=== PATIENT | female | born 1930 ===

== ENCOUNTER 2017-10-27 18:11 | Inpatient (IN) | payer MEDICARE ==
[2017-10-27] MEDS ORDERED: Sodium Chloride 0.9% 1,000 ML IV ONE (19:03)
[2017-10-27 19:14] LABS: BASO # 0.1 K/uL (0.0-0.2); BASO % 0.8 % (0.0-2.0); EOS # 0.2 K/uL (0.0-0.7); EOS % 2.7 % (0.0-4.0); HEMOGLOBIN 9.8 g/dL (11.0-16.0); LYMPH # 1.3 K/uL (1.0-4.3); LYMPH % 15.2 % (20.0-40.0); MEAN CELL VOLUME 83.2 fL (81.0-99.0); MEAN CORPUSCULAR HEMOGLOBIN 27.6 pg (27.0-31.0); MEAN CORPUSCULAR HGB CONC 33.2 g/dL (33.0-37.0); MEAN PLATELET VOLUME 8.8 fL (7.2-11.7); MONO # 0.6 K/uL (0.0-0.8); MONO % 7.4 % (0.0-10.0); NEUT # 6.5 K/uL (1.8-7.0); NEUT % 73.9 % (50.0-75.0); RBC 3.56 Mil/uL (3.80-5.20); WHITE BLOOD COUNT 8.8 K/uL (4.8-10.8)
--- NOTE | 2017-10-27 19:19 | C.PDOC ---
"History Of Present Illness 87 year old female brought to the ER by daughter complaining of GI bleed that began tonight. She also complains of abdominal pain. Patient is on Plavix. She denies any nausea, vomiting, fever, chills, or any other complaints. Time Seen by Provider: 10/27/17 18:52 Chief Complaint (Nursing): GI Problem History Per: Patient, Family (Daughter) History/Exam Limitations: no limitations Onset/Duration Of Symptoms: Hrs Current Symptoms Are (Timing): Still Present Past Medical History Reviewed: Historical Data, Nursing Documentation, Vital Signs Vital Signs: Last Vital Signs Temp 97.9 F 10/27/17 23:00 Pulse 79 10/27/17 23:06 Resp 13 10/27/17 23:06 BP 161/55 H 10/27/17 23:06 Pulse Ox 100 10/27/17 23:06 - Medical History PMH: Anxiety, Arthritis, Diabetes, HTN Denies: Chronic Kidney Disease Surgical History: No Surg Hx Family History: States: No Known Family Hx - Social History Hx Tobacco Use: No Hx Alcohol Use: No Hx Substance Use: No Review Of Systems Except As Marked, All Systems Reviewed And Found Negative. Constitutional: Negative for: Fever, Chills Gastrointestinal: Positive for: Abdominal Pain, Hematochezia. Negative for: Nausea, Vomiting Physical Exam - Physical Exam Appears: Non-toxic, Other (Mild distress) Skin: Warm, Dry Head: Atraumatic, Normacephalic Eye(s): bilateral: Conjunctiva Pale Nose: Normal Oral Mucosa: Moist Neck: Supple Chest: Symmetrical Cardiovascular: Rhythm Regular Respiratory: Normal Breath Sounds, No Rales, No Rhonchi, No Wheezing Gastrointestinal/Abdominal: Tenderness (Generalized tenderness, nonspecific ), No Guarding, No Rebound Rectal: Other (Gross bloody bowel movements) Neurological/Psych: Oriented x3, No Other (focal deficits ) ED Course And Treatment - Laboratory Results Result Diagrams: 10/27/17 21:00 10/27/17 19:10 ECG: Interpreted By Me, Viewed By Me ECG Rhythm: Sinus Rhythm ECG Interpretation: No Acute Changes, Abnormal (NSR, QS in III and AVF, abnormal tracings,) O2 Sat by Pulse Oximetry: 97 (RA) Pulse Ox Interpretation: Normal - CT Scan/US CT abd/pelvis Other Rad Studies (CT/US): Read By Radiologist, Radiology Report Reviewed CT/US Interpretation: EXAM: CT Abdomen and Pelvis With Intravenous Contrast. EXAM DATE/TIME: 10/27/2017 8:09 PM. CLINICAL HISTORY: 87 years old, female; Signs and symptoms; Other: Gi bleed. TECHNIQUE: Axial computed tomography images of the abdomen and pelvis with intravenous contrast. All CT scans at this facility use at least one of these dose optimization techniques: automated. exposure control; mA and/or kV adjustment per patient size ( includes targeted exams where dose is. matched to clinical indication); or iterative reconstruction. Coronal and sagittal reformatted images were created and reviewed. COMPARISON: No relevant prior studies available. FINDINGS: There is a tiny calcification within the gallbladder. Evaluation of the gallbladder itself is limited. secondary to patient motion. There is suggestion of possible biliary duct dilation in the left hepatic lobe. Evaluation is limited. secondary to lack of contrast. The spleen and pancreas appear grossly normal on this non-contrast study. There is mild bilateral perinephric stranding. No hydronephrosis. No obstructing calculi. Tiny. subcentimeter exophytic left renal lesion image 55 too small to characterize. Followup is. recommended. Pelvic phleboliths. MARI COLBY | Preliminary Radiology Report. CONFIDENTIALITY STATEMENT. This report is intended only for the use of the referring physician , and only in accordance with law, If you received this in error, call . Page 2 of 2. A few scattered diverticuli are noted. A normal appendix is identified axial images 52 through 56. IMPRESSION: Probable tiny gallstone. Evaluation of the gallbladder is limited secondary to motion. Possible biliary. duct dilation. Recommend correlation with laboratory values. Followup ultrasound may be helpful if. this is the region of patient's symptoms. Thank you for allowing us to participate in the care of your patient. Dictated and Authenticated by: Wendy Everett MD. 10/27/2017 10: 35 PM Eastern Time ([place] & [place]) Medical Decision Making Medical Decision Making: Orders: - EKG - CT Abd/Pel - CXR - Lab work - Prednisone 125mg IVP NG tube put in place, no blood noted Disposition Discussed With Dr.: Linda Contreras Doctor Will See Patient In The: Hospital Counseled Patient/Family Regarding: Diagnosis - Disposition Disposition: HOSPITALIZED Disposition Time: 20:03 Condition: GUARDED - Clinical Impression Clinical Impression: Gastrointestinal hemorrhage - Scribe Statement The provider has reviewed the documentation as recorded by the Scribe Tressa Kidd All medical record entries made by the Ririibe were at my direction and personally dictated by me. I have reviewed the chart and agree that the record accurately reflects my personal performance of the history, physical exam, medical decision making, and the department course for this patient. I have also personally directed, reviewed, and agree with the discharge instructions and disposition."
[2017-10-27 19:26] LABS: ALB/GLOB RATIO 1.4 (1.0-2.1); ALBUMIN 3.7 g/dL (3.5-5.0); CALCIUM 9.3 mg/dl (8.6-10.4)
[2017-10-27 19:40] LABS: PROTHROMBIN TIME 11.4 SECONDS (9.7-12.2)
[2017-10-27] MEDS ORDERED: Iohexol 240 (50 ml) PO ONE (20:11)
[2017-10-27] MEDS ORDERED: Iohexol 240 (50 ml) ONE (20:17)
[2017-10-27] MEDS ORDERED: Moxifloxacin IV 400mg/250ml NS 400 MG/250 ML BAG IVPB ONE ×2 (20:27→22:08)
[2017-10-27] MEDS ORDERED: Labetalol 5mg/ml (4ml) IV ONE (20:27)
[2017-10-27] MEDS ORDERED: Labetalol 5mg/ml (4ml) IVP PRN (20:28)
[2017-10-27] MEDS: Pantoprazole 80 MG in Sodium Chloride 0.9% 100 ML IVP SCH (20:36)
--- NOTE | 2017-10-27 20:36 | CP.PCM.CON ---
History of Present Illness - History of Present Illness History of Present Illness: 87 y/o female with pmx of CAd, CHF, presents to [facility] with bloody bowel movement. Patient had active bloody BM in ER. (+)guiac. (+)tensderness b/ l flank, no radaition, no exacerbating or relieveing factor, no fevers Pmx: CHF, CAD, Psug hx: deneis allergies: PCN SH: deneis smoking Review of Systems - Review of Systems Review of Systems: (+)abdominal pain, (+)venous bloody BM, all other systems netaive Past Patient History - Past Medical History & Family History Past Medical History?: Yes - Past Social History Smoking Status: Never Smoked - CARDIAC Hx Hypertension: Yes - PULMONARY Hx Respiratory Disorders: No - NEUROLOGICAL Hx Neurological Disorder: No - HEENT Hx HEENT Problems: No - RENAL Hx Chronic Kidney Disease: No - ENDOCRINE/METABOLIC Hx Diabetes Mellitus Type 2: Yes - HEMATOLOGICAL/ONCOLOGICAL Hx Blood Disorders: No - INTEGUMENTARY Hx Dermatological Problems: No - MUSCULOSKELETAL/RHEUMATOLOGICAL Hx Arthritis: Yes - GASTROINTESTINAL Hx Gastrointestinal Disorders: No - GENITOURINARY/GYNECOLOGICAL Hx Genitourinary Disorders: No - PSYCHIATRIC Hx Anxiety: Yes Hx Substance Use: No - SURGICAL HISTORY Hx Surgeries: No - ANESTHESIA Hx Anesthesia: Yes Hx Anesthesia Reactions: No Meds Allergies/Adverse Reactions: Allergies Allergy/AdvReac Type Severity Reaction Status Date / Time Penicillins Allergy Verified 10/27/17 19:02 - Medications Medications: Current Medications Hydralazine HCl (Apresoline) 10 mg IVP Q4H PRN PRN Reason: Systolic Blood Pressure Pantoprazole Sodium 80 mg/ (Sodium Chloride) 100 mls @ 10 mls/hr IVP .Q10H CATHERINE PRN Reason: 8 MG/HR Metronidazole (Flagyl) 500 mg in 100 mls @ 100 mls/hr IVPB Q8H CATHERINE PRN Reason: Protocol Moxifloxacin HCl (Avelox Iv 400mg/250ml Ns) 400 mg in 250 mls @ 167 mls/hr IVPB ONCE ONE PRN Reason: Protocol Stop: 10/27/17 21:56 Labetalol HCl (Trandate) 10 mg IVP Q4H PRN PRN Reason: Systolic Blood Pressure Physical Exam - Head Exam Head Exam: ATRAUMATIC, NORMAL INSPECTION, NORMOCEPHALIC - ENT Exam ENT Exam: Mucous Membranes Moist - Respiratory Exam Respiratory Exam: Clear to Auscultation Bilateral, NORMAL BREATHING PATTERN - Cardiovascular Exam Cardiovascular Exam: REGULAR RHYTHM, +S1, +S2, Systolic Murmur - GI/Abdominal Exam GI & Abdominal Exam: Normal Bowel Sounds, Tenderness - Extremities Exam Extremities exam: Positive for: pedal edema - Neurological Exam Neurological exam: Alert, CN II-XII Intact, Oriented x3 Results - Vital Signs Recent Vital Signs: Last Vital Signs Temp 98.9 F 10/27/17 18:17 Pulse 68 10/27/17 18:17 Resp 18 10/27/17 18:17 BP 193/67 H 10/27/17 18:17 Pulse Ox 97 10/27/17 20:24 - Labs Result Diagrams: 10/27/17 21:00 10/27/17 19:10 Labs: Laboratory Results - last 24 hr 10/27/17 10/27/17 10/27/17 19:10 19:10 19:10 WBC 8.8 RBC 3.56 L Hgb 9.8 L D Hct 29.6 L MCV 83.2 D MCH 27.6 MCHC 33.2 RDW 15.0 H Plt Count 253 MPV 8.8 Neut % (Auto) 73.9 Lymph % (Auto) 15.2 L [place] % (Auto) 7.4 Eos % (Auto) 2.7 Baso % (Auto) 0.8 Neut # (Auto) 6.5 Lymph # (Auto) 1.3 [place] # (Auto) 0.6 Eos # (Auto) 0.2 Baso # (Auto) 0.1 PT 11.4 INR 1.0 APTT 33 Sodium 130 L Potassium 4.5 Chloride 96 L Carbon Dioxide 24 Anion Gap 15 BUN 33 H Creatinine 1.5 H Est GFR ( Amer) 40 Est GFR (Non-Af Amer) 33 Random Glucose 299 H Calcium 9.3 Total Bilirubin 0.6 AST 223 H ALT 290 H D Alkaline Phosphatase 559 H Total Protein 6.4 Albumin 3.7 Globulin 2.7 Albumin/Globulin Ratio 1.4 Lipase 186 Blood Type Antibody Screen 10/27/17 19:10 WBC RBC Hgb Hct MCV MCH MCHC RDW Plt Count MPV Neut % (Auto) Lymph % (Auto) [place] % (Auto) Eos % (Auto) Baso % (Auto) Neut # (Auto) Lymph # (Auto) [place] # (Auto) Eos # (Auto) Baso # (Auto) PT INR APTT Sodium Potassium Chloride Carbon Dioxide Anion Gap BUN Creatinine Est GFR ( Amer) Est GFR (Non-Af Amer) Random Glucose Calcium Total Bilirubin AST ALT Alkaline Phosphatase Total Protein Albumin Globulin Albumin/Globulin Ratio Lipase Blood Type A POSITIVE Antibody Screen Negative Assessment & Plan - Assessment and Plan (Free Text) Assessment: Abdominal Pain + bloody bowel movement: suspect Gi bleed, upper /lower, start PPI, possible diverticulosis/itis, hold anicoagulants, hold antihypertensive orally -nPO -no IVF as patient has congestion on CXR -Gi consult -DVT ppx scds -PUD rx protonix -HTN: deja did not take her HTN meds today 2nd above events, will control BP using labetalol + hydralazine, keep SBP <150 -check trop/ck/josh -:susect , obtain echo suspect diatolice heart failure, check bnp -BGM q6hrs, ISS/aspart prognosis guarded as multiple diagnostic testing pending cc time 35 minutes - Date & Time Date: 10/27/17 Time: 20:36
[2017-10-27] MEDS ORDERED: metroNIDAZOLE IV 500 mg/100 ml 500 MG/100 ML BAG ONE (20:56)
[2017-10-27] MEDS: metroNIDAZOLE IV 500 mg/100 ml 500 MG/100 ML BAG IVPB SCH (20:59)
[2017-10-27 21:05] LABS: BASO # 0.1 K/uL (0.0-0.2); BASO % 0.5 % (0.0-2.0); EOS # 0.1 K/uL (0.0-0.7); EOS % 1.1 % (0.0-4.0); HEMOGLOBIN 9.8 g/dL (11.0-16.0); LYMPH # 1.1 K/uL (1.0-4.3); LYMPH % 11.1 % (20.0-40.0); MEAN CELL VOLUME 83.8 fL (81.0-99.0); MEAN CORPUSCULAR HEMOGLOBIN 27.9 pg (27.0-31.0); MEAN CORPUSCULAR HGB CONC 33.2 g/dL (33.0-37.0); MEAN PLATELET VOLUME 8.7 fL (7.2-11.7); MONO # 0.3 K/uL (0.0-0.8); MONO % 3.5 % (0.0-10.0); NEUT % 83.8 % (50.0-75.0); RBC 3.53 Mil/uL (3.80-5.20); RED CELL DISTRIBUTION WIDTH 15.2 % (11.5-14.5); WHITE BLOOD COUNT 9.6 K/uL (4.8-10.8)
[2017-10-27 21:31] LABS: CK-MB 1.73 ng/mL (0.0-3.38)
[2017-10-27 21:33] LABS: TROPONIN I 0.013 ng/mL (0.00-0.120)
[2017-10-28] MEDS: metroNIDAZOLE IV 500 mg/100 ml 500 MG/100 ML BAG IVPB SCH ×3 (03:51→20:53)
[2017-10-28 04:24] LABS: BASO % 0.2 % (0.0-2.0); HEMOGLOBIN 8.9 g/dL (11.0-16.0); LYMPH # 0.6 K/uL (1.0-4.3); LYMPH % 5.8 % (20.0-40.0); MEAN CORPUSCULAR HEMOGLOBIN 27.7 pg (27.0-31.0); MEAN PLATELET VOLUME 9.1 fL (7.2-11.7); MONO % 0.5 % (0.0-10.0); NEUT # 9.2 K/uL (1.8-7.0); NEUT % 93.5 % (50.0-75.0); PLATELET COUNT 221 K/uL (130-400); RBC 3.23 Mil/uL (3.80-5.20); RED CELL DISTRIBUTION WIDTH 14.9 % (11.5-14.5); WHITE BLOOD COUNT 9.8 K/uL (4.8-10.8)
[2017-10-28 04:57] LABS: CK-MB 2.19 ng/mL (0.0-3.38); TROPONIN I 0.018 ng/mL (0.00-0.120)
[2017-10-28] MEDS: Pantoprazole 80 MG in Sodium Chloride 0.9% 100 ML IVP SCH (06:41)
[2017-10-28] MEDS: (Novolog) Insulin Aspart, Recombinant 100 u/ml 10 ml vial SC SCH ×4 (07:02→21:08)
--- NOTE | 2017-10-28 08:02 | CP.PCM.CON ---
<Azael Hays - Last Filed: 10/28/17 11:28> History of Present Illness - History of Present Illness History of Present Illness: PGY-4 GI Fellow Initial Consult Note The following history somewhat limited due to language barrier plus patient hard of hearing. Information obtained from hospital staff, chart review, family and patient. Mrs. Pantoja is a 87 yo Hisp Female with CVA (on clopidogrel), Aortic Stenosis?, DM presenting with bloody bowel movements. Patient presented with multiple bloody bowel movements within the last day starting in the evening of 10/27 prompting her to seek medical attention. Daughter Sandi states that patient had a headache on Saturday for which she took a baby ASA. She denies any abd pain, N/V or history of endoscopies. Later, daughter Sandi stated that patient had CSPY about 10 years ago that was reportedly normal. Furthermore, she states her mother has chronic pain all over which she attributes to clopidogrel. After admission, she was started on PPI gtt, NG placed and made NPO. GI consulted for further evaluation. Unable to obtain full ROS due to hard of hearing (video copy technician [id number] even used and patient could not hear) MHx: See above SurgHx: No EGDs or CSPYs Meds: Clopidogrel, furosemide, glimeprimide, metop succ, novolog, valsartan, rosuvastatin, KCl FamHx: Mother with cancer in "abdomen" SocHx: Denied Tob, EtOH, Ill All: PCN Past Patient History - Past Medical History & Family History Past Medical History?: Yes - Past Social History Smoking Status: Never Smoked - CARDIAC Hx Hypertension: Yes - PULMONARY Hx Respiratory Disorders: No - NEUROLOGICAL Hx Neurological Disorder: No - HEENT Hx HEENT Problems: No - RENAL Hx Chronic Kidney Disease: No - ENDOCRINE/METABOLIC Hx Diabetes Mellitus Type 2: Yes - HEMATOLOGICAL/ONCOLOGICAL Hx Blood Disorders: No - INTEGUMENTARY Hx Dermatological Problems: No - MUSCULOSKELETAL/RHEUMATOLOGICAL Hx Arthritis: Yes - GASTROINTESTINAL Hx Gastrointestinal Disorders: No - GENITOURINARY/GYNECOLOGICAL Hx Genitourinary Disorders: No - PSYCHIATRIC Hx Anxiety: Yes Hx Substance Use: No - SURGICAL HISTORY Hx Surgeries: No - ANESTHESIA Hx Anesthesia: Yes Hx Anesthesia Reactions: No Meds Allergies/Adverse Reactions: Allergies Allergy/AdvReac Type Severity Reaction Status Date / Time Penicillins Allergy Verified 10/27/17 19:02 - Medications Medications: Current Medications Hydralazine HCl (Apresoline) 10 mg IVP Q4H PRN PRN Reason: Systolic Blood Pressure Pantoprazole Sodium 80 mg/ (Sodium Chloride) 100 mls @ 10 mls/hr IVP .Q10H CATHERINE PRN Reason: 8 MG/HR Last Admin: 10/28/17 06:41 Dose: 10 mls/hr Metronidazole (Flagyl) 500 mg in 100 mls @ 100 mls/hr IVPB Q8H CATHERINE PRN Reason: Protocol Last Admin: 10/28/17 03:51 Dose: 100 mls/hr Insulin Aspart (Novolog) 0 unit SC Q6H CATHERINE PRN Reason: Protocol Last Admin: 10/28/17 07:02 Dose: 8 units Labetalol HCl (Trandate) 10 mg IVP Q4H PRN PRN Reason: Systolic Blood Pressure Physical Exam - Constitutional Appears: Non-toxic, Confused, Chronically Ill - Head Exam Head Exam: ATRAUMATIC, NORMAL INSPECTION - Eye Exam Eye Exam: EOMI. absent: Conjunctival injection, Scleral icterus - ENT Exam ENT Exam: Mucous Membranes Moist. absent: Mucous Membranes Dry, Normal External Ear Exam Additional comments: Hard of hearing - Respiratory Exam Respiratory Exam: Clear to Auscultation Bilateral, NORMAL BREATHING PATTERN. absent: Accessory Muscle Use, Chest Wall Tenderness, Prolonged Expiratory Phase - Cardiovascular Exam Cardiovascular Exam: REGULAR RHYTHM, Systolic Murmur (3/6 heard throughout, loudest at apex) - GI/Abdominal Exam GI & Abdominal Exam: Normal Bowel Sounds, Soft. absent: Bruit, Diminished Bowel Sounds, Distended, Firm, Guarding, Hernia, Hyperactive Bowel Sounds, Hypoactive Bowel Sounds, Mass, Organomegaly, Pulsatile Mass, Rebound, Rigid, Tenderness - Rectal Exam Rectal Exam: Bloody Stool, Hemorrhoids (dark red blood on ROXI, Non thrombosed ext hem at 2 o'clock) - Extremities Exam Extremities exam: Positive for: normal inspection, pedal edema (trace) - Neurological Exam Neurological exam: Alert, CN II-XII Intact - Psychiatric Exam Psychiatric exam: Normal Affect, Normal Mood - Skin Skin Exam: Normal Color, Warm Results - Vital Signs Recent Vital Signs: Last Vital Signs Temp 98.2 F 10/28/17 04:00 Pulse 74 10/28/17 05:55 Resp 15 10/28/17 05:55 BP 141/45 L 10/28/17 05:55 Pulse Ox 99 10/28/17 05:55 - Labs Result Diagrams: 10/28/17 04:17 10/27/17 19:10 Labs: Laboratory Results - last 24 hr 10/27/17 10/27/17 10/27/17 19:00 19:10 19:10 WBC 8.8 RBC 3.56 L Hgb 9.8 L D Hct 29.6 L MCV 83.2 D MCH 27.6 MCHC 33.2 RDW 15.0 H Plt Count 253 MPV 8.8 Neut % (Auto) 73.9 Lymph % (Auto) 15.2 L Faulkner % (Auto) 7.4 Eos % (Auto) 2.7 Baso % (Auto) 0.8 Neut # (Auto) 6.5 Lymph # (Auto) 1.3 Faulkner # (Auto) 0.6 Eos # (Auto) 0.2 Baso # (Auto) 0.1 PT 11.4 INR 1.0 APTT 33 Lactate Sodium Potassium Chloride Carbon Dioxide Anion Gap BUN Creatinine Est GFR ( Amer) Est GFR (Non-Af Amer) Random Glucose Lactic Acid Calcium Total Bilirubin AST ALT Alkaline Phosphatase Total Creatine Kinase 87 CK-MB (Mass) 1.73 Troponin I 0.0130 Total Protein Albumin Globulin Albumin/Globulin Ratio Lipase Blood Type Antibody Screen 10/27/17 10/27/17 10/27/17 19:10 19:10 21:00 WBC 9.6 RBC 3.53 L Hgb 9.8 L Hct 29.5 L MCV 83.8 MCH 27.9 MCHC 33.2 RDW 15.2 H Plt Count 239 MPV 8.7 Neut % (Auto) 83.8 H Lymph % (Auto) 11.1 L Faulkner % (Auto) 3.5 Eos % (Auto) 1.1 Baso % (Auto) 0.5 Neut # (Auto) 8.0 H Lymph # (Auto) 1.1 Faulkner # (Auto) 0.3 Eos # (Auto) 0.1 Baso # (Auto) 0.1 PT INR APTT Lactate Sodium 130 L Potassium 4.5 Chloride 96 L Carbon Dioxide 24 Anion Gap 15 BUN 33 H Creatinine 1.5 H Est GFR ( Amer) 40 Est GFR (Non-Af Amer) 33 Random Glucose 299 H Lactic Acid Calcium 9.3 Total Bilirubin 0.6 AST 223 H ALT 290 H D Alkaline Phosphatase 559 H Total Creatine Kinase CK-MB (Mass) Troponin I Total Protein 6.4 Albumin 3.7 Globulin 2.7 Albumin/Globulin Ratio 1.4 Lipase 186 Blood Type A POSITIVE Antibody Screen Negative 10/27/17 10/27/17 10/28/17 21:00 21:05 04:17 WBC 9.8 RBC 3.23 L Hgb 8.9 L Hct 27.1 L MCV 84.0 MCH 27.7 MCHC 33.0 RDW 14.9 H Plt Count 221 MPV 9.1 Neut % (Auto) 93.5 H Lymph % (Auto) 5.8 L Faulkner % (Auto) 0.5 Eos % (Auto) 0.0 Baso % (Auto) 0.2 Neut # (Auto) 9.2 H Lymph # (Auto) 0.6 L Faulkner # (Auto) 0.0 Eos # (Auto) 0.0 Baso # (Auto) 0.0 PT INR APTT Lactate 2.0 Sodium Potassium Chloride Carbon Dioxide Anion Gap BUN Creatinine Est GFR ( Amer) Est GFR (Non-Af Amer) Random Glucose Lactic Acid 1.6 Calcium Total Bilirubin AST ALT Alkaline Phosphatase Total Creatine Kinase CK-MB (Mass) Troponin I Total Protein Albumin Globulin Albumin/Globulin Ratio Lipase Blood Type Antibody Screen 10/28/17 10/28/17 04:17 04:18 WBC RBC Hgb Hct MCV MCH MCHC RDW Plt Count MPV Neut % (Auto) Lymph % (Auto) Faulkner % (Auto) Eos % (Auto) Baso % (Auto) Neut # (Auto) Lymph # (Auto) Faulkner # (Auto) Eos # (Auto) Baso # (Auto) PT INR APTT Lactate Sodium Potassium Chloride Carbon Dioxide Anion Gap BUN Creatinine Est GFR ( Amer) Est GFR (Non-Af Amer) Random Glucose Lactic Acid 1.9 Calcium Total Bilirubin AST ALT Alkaline Phosphatase Total Creatine Kinase 74 CK-MB (Mass) 2.19 Troponin I 0.0180 Total Protein Albumin Globulin Albumin/Globulin Ratio Lipase Blood Type Antibody Screen Assessment & Plan - Assessment and Plan (Free Text) Assessment: 87 yo Hisp Female with CVA, DM presenting with bright red blood per rectum. # Hematochezia: Suspect related to Lower GI Bleed, perhaps diverticular or AVM related given h/o , especially since painless. Though BUN mildly elevated there are no other signs/symptoms to suggest brisk upper bleed. Hgb 8.9 from 12 in 2013. Had NG placed but there was reportedly no output from it. Reportedly had CSPY about 10 years ago that was normal per family report. # Transamnitis: Unclear etiology. AST 223, ALT 290 and AP 559, Bili 0.6. Possible stone in duct in L lobe of liver per prelim read. No abd pain at this time. # H/o ?CHF, CAD, : No previous reports on file. Repeat Echo pending. Family deny h/o CAD and CHF Plan: - Cont to hold clopidogrel (last dose on Saturday, baby ASA Sat night) - Monitor Hgb, transfuse if <7 - If continues to bleed over next fw days/Hgb drop will consider Colonoscopy, but given hemodynamically stale will let clopidogrel wash out for now and monitor closely for self-resolution. - Clear liquid diet for now - DCed PPI - RUQ US - Check for Viral Hep - Daily CMPs Pt seen and examined with Dr. Martinez <Macho Martinez - Last Filed: 10/28/17 15:18> Meds - Medications Medications: Current Medications Hydralazine HCl (Apresoline) 10 mg IVP Q4H PRN PRN Reason: Systolic Blood Pressure Metronidazole (Flagyl) 500 mg in 100 mls @ 100 mls/hr IVPB Q8H CATHERINE PRN Reason: Protocol Last Admin: 10/28/17 12:37 Dose: 100 mls/hr Sodium Chloride (Sodium Chloride 0.45%) 1,000 mls @ 45 mls/hr IV .[id number] [facility] Last Admin: 10/28/17 10:41 Dose: 45 mls/hr Insulin Aspart (Novolog) 0 unit SC Q6H CATHERINE PRN Reason: Protocol Last Admin: 10/28/17 12:41 Dose: 10 units Results - Vital Signs Recent Vital Signs: Last Vital Signs Temp 98.1 F 10/28/17 08:00 Pulse 79 10/28/17 08:00 Resp 20 10/28/17 08:00 BP 115/54 L 10/28/17 07:55 Pulse Ox 100 10/28/17 08:00 - Labs Result Diagrams: 10/28/17 11:24 10/28/17 11:24 Labs: Laboratory Results - last 24 hr 10/27/17 10/27/17 10/27/17 19:00 19:10 19:10 WBC 8.8 RBC 3.56 L Hgb 9.8 L D Hct 29.6 L MCV 83.2 D MCH 27.6 MCHC 33.2 RDW 15.0 H Plt Count 253 MPV 8.8 Neut % (Auto) 73.9 Lymph % (Auto) 15.2 L Faulkner % (Auto) 7.4 Eos % (Auto) 2.7 Baso % (Auto) 0.8 Neut # (Auto) 6.5 Lymph # (Auto) 1.3 Faulkner # (Auto) 0.6 Eos # (Auto) 0.2 Baso # (Auto) 0.1 Neutrophils % (Manual) Lymphocytes % (Manual) Monocytes % (Manual) Platelet Estimate Hypochromasia (manual) Poikilocytosis (manual Anisocytosis (manual) Target Cells Tear Drop Cells Ovalocytes PT 11.4 INR 1.0 APTT 33 Lactate Sodium Potassium Chloride Carbon Dioxide Anion Gap BUN Creatinine Est GFR ( Amer) Est GFR (Non-Af Amer) POC Glucose (mg/dL) Random Glucose Lactic Acid Calcium Phosphorus Magnesium Total Bilirubin AST ALT Alkaline Phosphatase Total Creatine Kinase 87 CK-MB (Mass) 1.73 Troponin I 0.0130 Total Protein Albumin Globulin Albumin/Globulin Ratio Lipase Blood Type Antibody Screen 10/27/17 10/27/17 10/27/17 19:10 19:10 21:00 WBC 9.6 RBC 3.53 L Hgb 9.8 L Hct 29.5 L MCV 83.8 MCH 27.9 MCHC 33.2 RDW 15.2 H Plt Count 239 MPV 8.7 Neut % (Auto) 83.8 H Lymph % (Auto) 11.1 L Faulkner % (Auto) 3.5 Eos % (Auto) 1.1 Baso % (Auto) 0.5 Neut # (Auto) 8.0 H Lymph # (Auto) 1.1 Faulkner # (Auto) 0.3 Eos # (Auto) 0.1 Baso # (Auto) 0.1 Neutrophils % (Manual) Lymphocytes % (Manual) Monocytes % (Manual) Platelet Estimate Hypochromasia (manual) Poikilocytosis (manual Anisocytosis (manual) Target Cells Tear Drop Cells Ovalocytes PT INR APTT Lactate Sodium 130 L Potassium 4.5 Chloride 96 L Carbon Dioxide 24 Anion Gap 15 BUN 33 H Creatinine 1.5 H Est GFR ( Amer) 40 Est GFR (Non-Af Amer) 33 POC Glucose (mg/dL) Random Glucose 299 H Lactic Acid Calcium 9.3 Phosphorus Magnesium Total Bilirubin 0.6 AST 223 H ALT 290 H D Alkaline Phosphatase 559 H Total Creatine Kinase CK-MB (Mass) Troponin I Total Protein 6.4 Albumin 3.7 Globulin 2.7 Albumin/Globulin Ratio 1.4 Lipase 186 Blood Type A POSITIVE Antibody Screen Negative 10/27/17 10/27/17 10/27/17 21:00 21:05 23:01 WBC RBC Hgb Hct MCV MCH MCHC RDW Plt Count MPV Neut % (Auto) Lymph % (Auto) Faulkner % (Auto) Eos % (Auto) Baso % (Auto) Neut # (Auto) Lymph # (Auto) Faulkner # (Auto) Eos # (Auto) Baso # (Auto) Neutrophils % (Manual) Lymphocytes % (Manual) Monocytes % (Manual) Platelet Estimate Hypochromasia (manual) Poikilocytosis (manual Anisocytosis (manual) Target Cells Tear Drop Cells Ovalocytes PT INR APTT Lactate 2.0 Sodium Potassium Chloride Carbon Dioxide Anion Gap BUN Creatinine Est GFR ( Amer) Est GFR (Non-Af Amer) POC Glucose (mg/dL) 286 H Random Glucose Lactic Acid 1.6 Calcium Phosphorus Magnesium Total Bilirubin AST ALT Alkaline Phosphatase Total Creatine Kinase CK-MB (Mass) Troponin I Total Protein Albumin Globulin Albumin/Globulin Ratio Lipase Blood Type Antibody Screen 10/28/17 10/28/17 10/28/17 04:17 04:17 04:18 WBC 9.8 RBC 3.23 L Hgb 8.9 L Hct 27.1 L MCV 84.0 MCH 27.7 MCHC 33.0 RDW 14.9 H Plt Count 221 MPV 9.1 Neut % (Auto) 93.5 H Lymph % (Auto) 5.8 L Faulkner % (Auto) 0.5 Eos % (Auto) 0.0 Baso % (Auto) 0.2 Neut # (Auto) 9.2 H Lymph # (Auto) 0.6 L Faulkner # (Auto) 0.0 Eos # (Auto) 0.0 Baso # (Auto) 0.0 Neutrophils % (Manual) 96 H Lymphocytes % (Manual) 4 L Monocytes % (Manual) TEST NOT PERFORMED Platelet Estimate Normal Hypochromasia (manual) Slight Poikilocytosis (manual Slight Anisocytosis (manual) Slight Target Cells Slight Tear Drop Cells Ovalocytes PT INR APTT Lactate Sodium Potassium Chloride Carbon Dioxide Anion Gap BUN Creatinine Est GFR ( Amer) Est GFR (Non-Af Amer) POC Glucose (mg/dL) Random Glucose Lactic Acid 1.9 Calcium Phosphorus Magnesium Total Bilirubin AST ALT Alkaline Phosphatase Total Creatine Kinase 74 CK-MB (Mass) 2.19 Troponin I 0.0180 Total Protein Albumin Globulin Albumin/Globulin Ratio Lipase Blood Type Antibody Screen 10/28/17 10/28/17 10/28/17 05:46 11:24 11:24 WBC 9.7 RBC 3.18 L Hgb 9.0 L Hct 26.8 L MCV 84.3 MCH 28.3 MCHC 33.6 RDW 15.4 H Plt Count 225 MPV 8.8 Neut % (Auto) 92.1 H Lymph % (Auto) 6.8 L Faulkner % (Auto) 0.9 Eos % (Auto) 0.0 Baso % (Auto) 0.2 Neut # (Auto) 8.9 H Lymph # (Auto) 0.7 L Faulkner # (Auto) 0.1 Eos # (Auto) 0.0 Baso # (Auto) 0.0 Neutrophils % (Manual) 91 H Lymphocytes % (Manual) 8 L Monocytes % (Manual) 1 Platelet Estimate Normal Hypochromasia (manual) Slight Poikilocytosis (manual Slight Anisocytosis (manual) Slight Target Cells Slight Tear Drop Cells Slight Ovalocytes Slight PT INR APTT Lactate Sodium 130 L Potassium 4.3 Chloride 98 Carbon Dioxide 18 L Anion Gap 18 BUN 31 H Creatinine 1.3 H Est GFR ( Amer) 47 Est GFR (Non-Af Amer) 39 POC Glucose (mg/dL) 359 H Random Glucose 388 H Lactic Acid Calcium 8.8 Phosphorus 4.5 Magnesium 1.8 Total Bilirubin 0.6 AST 123 H D ALT 225 H D Alkaline Phosphatase 494 H Total Creatine Kinase 77 CK-MB (Mass) 3.17 Troponin I 0.0240 Total Protein 6.0 L Albumin 3.4 L Globulin 2.6 Albumin/Globulin Ratio 1.3 Lipase Blood Type Antibody Screen 10/28/17 12:38 WBC RBC Hgb Hct MCV MCH MCHC RDW Plt Count MPV Neut % (Auto) Lymph % (Auto) Faulkner % (Auto) Eos % (Auto) Baso % (Auto) Neut # (Auto) Lymph # (Auto) Faulkner # (Auto) Eos # (Auto) Baso # (Auto) Neutrophils % (Manual) Lymphocytes % (Manual) Monocytes % (Manual) Platelet Estimate Hypochromasia (manual) Poikilocytosis (manual Anisocytosis (manual) Target Cells Tear Drop Cells Ovalocytes PT INR APTT Lactate Sodium Potassium Chloride Carbon Dioxide Anion Gap BUN Creatinine Est GFR ( Amer) Est GFR (Non-Af Amer) POC Glucose (mg/dL) 468 H* Random Glucose Lactic Acid Calcium Phosphorus Magnesium Total Bilirubin AST ALT Alkaline Phosphatase Total Creatine Kinase CK-MB (Mass) Troponin I Total Protein Albumin Globulin Albumin/Globulin Ratio Lipase Blood Type Antibody Screen Attending/Attestation - Attestation I have personally seen and examined this patient.: Yes I have fully participated in the care of the patient.: Yes I have reviewed all pertinent clinical information: Yes Notes (Text): 10/28/17 15:13 I have seen and examined patient with GI fellow. Agree with above documentation with the following additions. In brief, this is an 87 year old female with history of obesity (BMI 34), CVA on plavix, DM, who presents with complaint of rectal bleeding which began yesterday. Prior to this she was in usual state of health. She describes having a large bloody bowel movement yesterday, again at 4 am today and once this morning. She denies associated abdominal pain, nausea, vomiting, fever/chills, weight loss, or change in bowel habits. She had a colonoscopy over 10 years ago which was normal as per patient 's daughter. Review of vitals from today are normal. 12 point review of systems performed, negative aside from mentioned above. Obesity CVA on plavix (last dose yesterday morning) DM Rectal bleeding, no associated alarm features, differential is broad including diverticulosis, hemorrhoids, malignancy, etc Transaminitis - Clear liquid diet as tolerated - H/H stable, continue to monitor and transfuse as necessary - Obtain viral hepatitis panel - Obtain abdominal US - Continue to monitor LFTs - Plavix currently held, will continue with supportive care and observation. Patient may benefit from endoscopic evaluation if bleeding persists or can be performed electively as outpatient if symptoms resolve. Will continue to monitor patient clinical course.
[2017-10-28 08:24] LABS: ANISOCYTOSIS SLIGHT; HYPOCHROMIC SLIGHT; LYMPHOCYTE 4 % (20-40); NEUTROPHIL 96 % (50-75); PLATELET ESTIMATE NORMAL (NORMAL); POIKILOCYTOSIS SLIGHT; TARGET CELLS SLIGHT; TOTAL CELLS COUNTED 100
--- NOTE | 2017-10-28 10:21 | CT ---
Date of service: 10/27/2017 PROCEDURE: CT Abdomen and Pelvis with Oral contrast. HISTORY: gi bleed COMPARISON: Comparison is made to the previous study dated 01/07/2012 TECHNIQUE: Contiguous axial images of the abdomen and pelvis. Oral contrast was administered. No IV contrast given. Coronal and Sagittal reformats generated. Radiation dose: Total exam DLP = 1040.15 mGy-cm. This CT exam was performed using one or more of the following dose reduction techniques: Automated exposure control, adjustment of the mA and/or kV according to patient size, and/or use of iterative reconstruction technique. FINDINGS: LOWER THORAX: Unremarkable. LIVER: Mildly heterogeneous attenuation of the liver noted without evidence of discrete mass lesion. No evidence of intrahepatic or extrahepatic biliary ductal dilatation. GALLBLADDER AND BILE DUCTS: Possible gallstones without evidence of acute cholecystitis. PANCREAS: No evidence of acute pancreatitis. The main pancreatic duct is not dilated. SPLEEN: Unremarkable. No splenomegaly. ADRENALS: Unremarkable. KIDNEYS AND URETERS: Unremarkable. No stone or hydronephrosis. BLADDER: Grossly unremarkable. REPRODUCTIVE: Unremarkable. APPENDIX: No evidence of appendicitis. BOWEL: Questionable transverse colon wall thickening versus incomplete distention. No evidence of bowel obstruction. No evidence of obstructive mass lesion in the small or large bowel loops noted in this exam. PERITONEUM: Unremarkable. No fluid collection. No free air. LYMPH NODES: Unremarkable. No enlarged lymph nodes. VASCULATURE: Unremarkable. No aortic aneurysm. BONES: Severe compression deformity of T12 vertebral body is again noted. Diffuse osteopenia. OTHER FINDINGS: None. IMPRESSION: Possible gallstones. No definite CT evidence of acute cholecystitis or biliary tract obstruction. Preliminary report was submitted by virtual Radiology.
[2017-10-28] MEDS: Sodium Chloride 0.45% 1,000 ML IV SCH (10:41)
--- NOTE | 2017-10-28 11:23 | RAD ---
Date of service: 10/27/2017 PROCEDURE: CHEST RADIOGRAPH, 1 VIEW HISTORY: GI Bleeding COMPARISON: 07/08/2017. FINDINGS: LUNGS: Clear. PLEURA: No pneumothorax or pleural fluid seen. CARDIOVASCULAR: No radiographic findings to suggest acute or significant cardiovascular disease. OSSEOUS STRUCTURES: No significant abnormalities. VISUALIZED UPPER ABDOMEN: Normal. OTHER FINDINGS: None. IMPRESSION: No active disease.No significant interval change compared to the prior examination(s).
[2017-10-28 11:31] LABS: BASO % 0.2 % (0.0-2.0); LYMPH # 0.7 K/uL (1.0-4.3); LYMPH % 6.8 % (20.0-40.0); MEAN CELL VOLUME 84.3 fL (81.0-99.0); MEAN CORPUSCULAR HEMOGLOBIN 28.3 pg (27.0-31.0); MEAN CORPUSCULAR HGB CONC 33.6 g/dL (33.0-37.0); MEAN PLATELET VOLUME 8.8 fL (7.2-11.7); MONO # 0.1 K/uL (0.0-0.8); MONO % 0.9 % (0.0-10.0); NEUT # 8.9 K/uL (1.8-7.0); NEUT % 92.1 % (50.0-75.0); PLATELET COUNT 225 K/uL (130-400); RBC 3.18 Mil/uL (3.80-5.20); RED CELL DISTRIBUTION WIDTH 15.4 % (11.5-14.5); WHITE BLOOD COUNT 9.7 K/uL (4.8-10.8)
[2017-10-28 12:03] LABS: ANISOCYTOSIS SLIGHT; HYPOCHROMIC SLIGHT; LYMPHOCYTE 8 % (20-40); MONOCYTE 1 % (0-10); NEUTROPHIL 91 % (50-75); OVALOCYTES SLIGHT; PLATELET ESTIMATE NORMAL (NORMAL); POIKILOCYTOSIS SLIGHT; TARGET CELLS SLIGHT; TEARDROP CELLS SLIGHT; TOTAL CELLS COUNTED 100
[2017-10-28 12:17] LABS: CK-MB 3.17 ng/mL (0.0-3.38); TROPONIN I 0.024 ng/mL (0.00-0.120)
[2017-10-28 12:20] LABS: ALB/GLOB RATIO 1.3 (1.0-2.1); ALBUMIN 3.4 g/dL (3.5-5.0); CALCIUM 8.8 mg/dl (8.6-10.4)
--- NOTE | 2017-10-28 15:03 | CP.CCUPN ---
CCU Subjective - Physician Review Subjective (Free Text): PGY-1 critical care progress note. Patient seen and examined at bedside. Patient had a grossly bloody BM this morning, and this afternoon passed a small amount of dark red blood. Will continue to hold Plavix. Patient tolerated liquid diet today. Patient denies chest pain, Shortness of breath, palpitations, abdominal pain, nausea, vomiting. CCU Objective - Vital Signs / Intake & Output Intake and Output (Last 8hrs): Intake & Output 10/28/17 10/28/17 10/28/17 06:59 14:59 22:59 Intake Total 260 20 Output Total 500 Balance -240 20 Weight 193 lb Intake: Intake, IV Amount 260 20 Left Forearm 60 20 Right Wrist 200 Oral 0 Output: Urine 500 Urine, Voided 500 Other: Voiding Method Bedpan # Voids Urine, Voided 1 # Bowel Movements 1 - Physical Exam Head: Positive for: Atraumatic, Normocephalic Extroacular Muscles: Positive for: EOMI Conjunctiva: Positive for: Other (pale) Ears: Positive for: Other (hard of hearing) Mouth: Positive for: Moist Mucous Membranes Respiratory/Chest: Positive for: Clear to Auscultation. Negative for: Wheezes, Rales, Rhonchi Cardiovascular: Positive for: Regular Rate and Rhythm, Murmurs (systolic ejection murmur), Normal S1, S2 Abdomen: Positive for: Normal Bowel Sounds. Negative for: Tenderness Lower Extremity: Positive for: Tenderness (to diffuse palpation of bilateral lower extremities), Swelling (mild, non bitting bilaterally) Neurological: Positive for: CN II-XII Intact, Speech Normal Skin: Positive for: Warm, Dry, Pale Psychiatric: Positive for: Alert - Medications Active Medications: Active Medications Generic Name Dose Route Start Last Admin Trade Name Freq PRN Reason Stop Dose Admin Hydralazine HCl 10 mg 10/27/17 20:29 Apresoline IVP Q4H PRN Systolic Blood Pressure Metronidazole 500 mg in 100 mls @ 100 mls/hr 10/27/17 20:30 10/28/17 12:37 Flagyl IVPB 100 mls/hr Q8H CATHERINE Administration Protocol Sodium Chloride 1,000 mls @ 45 mls/hr 10/28/17 10:00 10/28/17 10:41 Sodium Chloride 0.45% IV 45 mls/hr .[id number] CATHERINE Administration Insulin Aspart 0 unit 10/28/17 07:00 10/28/17 12:41 Novolog SC 10 units Q6H CATHERINE Administration Protocol - Patient Studies Lab Studies: Lab Studies 10/28/17 10/28/17 10/28/17 Range/Units 12:38 11:24 11:24 WBC 9.7 (4.8-10.8) K/uL RBC 3.18 L (3.80-5.20) Mil/uL Hgb 9.0 L (11.0-16.0) g/dL Hct 26.8 L (34.0-47.0) % MCV 84.3 (81.0-99.0) fL MCH 28.3 (27.0-31.0) pg MCHC 33.6 (33.0-37.0) g/dL RDW 15.4 H (11.5-14.5) % Plt Count 225 (130-400) K/uL MPV 8.8 (7.2-11.7) fL Neut % (Auto) 92.1 H (50.0-75.0) % Lymph % (Auto) 6.8 L (20.0-40.0) % Bent % (Auto) 0.9 (0.0-10.0) % Eos % (Auto) 0.0 (0.0-4.0) % Baso % (Auto) 0.2 (0.0-2.0) % Neut # (Auto) 8.9 H (1.8-7.0) K/uL Lymph # (Auto) 0.7 L (1.0-4.3) K/uL Bent # (Auto) 0.1 (0.0-0.8) K/uL Eos # (Auto) 0.0 (0.0-0.7) K/uL Baso # (Auto) 0.0 (0.0-0.2) K/uL Neutrophils % (Manual) 91 H (50-75) % Lymphocytes % (Manual) 8 L (20-40) % Monocytes % (Manual) 1 Platelet Estimate Normal (NORMAL) Hypochromasia (manual) Slight Poikilocytosis (manual Slight Anisocytosis (manual) Slight Target Cells Slight Tear Drop Cells Slight Ovalocytes Slight PT (9.7-12.2) SECONDS INR APTT (21-34) SECONDS Lactate (0.7-2.1) mmol/L Sodium 130 L (132-148) mmol/L Potassium 4.3 (3.6-5.2) mmol/L Chloride 98 (98-107) mmol/L Carbon Dioxide 18 L (22-30) mmol/L Anion Gap 18 (10-20) BUN 31 H (7-17) mg/dL Creatinine 1.3 H (0.7-1.2) mg/dL Est GFR ( Amer) 47 Est GFR (Non-Af Amer) 39 POC Glucose (mg/dL) 468 H* (65-110) mg/dL Random Glucose 388 H (65-105) mg/dL Lactic Acid (0.7-2.1) mmol/L Calcium 8.8 (8.6-10.4) mg/dl Phosphorus 4.5 (2.5-4.5) mg/dL Magnesium 1.8 (1.6-2.3) mg/dL Total Bilirubin 0.6 (0.2-1.3) mg/dL AST 123 H D (14-36) U/L ALT 225 H D (9-52) U/L Alkaline Phosphatase 494 H (38-126) U/L Total Creatine Kinase 77 (30-135) U/L CK-MB (Mass) 3.17 (0.0-3.38) ng/mL Troponin I 0.0240 (0.00-0.120) ng/mL Total Protein 6.0 L (6.3-8.3) g/dL Albumin 3.4 L (3.5-5.0) g/dL Globulin 2.6 (2.2-3.9) gm/dL Albumin/Globulin Ratio 1.3 (1.0-2.1) Lipase (23-300) U/L Blood Type Antibody Screen 10/28/17 10/28/17 10/28/17 Range/Units 05:46 04:18 04:17 WBC (4.8-10.8) K/uL RBC (3.80-5.20) Mil/uL Hgb (11.0-16.0) g/dL Hct (34.0-47.0) % MCV (81.0-99.0) fL MCH (27.0-31.0) pg MCHC (33.0-37.0) g/dL RDW (11.5-14.5) % Plt Count (130-400) K/uL MPV (7.2-11.7) fL Neut % (Auto) (50.0-75.0) % Lymph % (Auto) (20.0-40.0) % Bent % (Auto) (0.0-10.0) % Eos % (Auto) (0.0-4.0) % Baso % (Auto) (0.0-2.0) % Neut # (Auto) (1.8-7.0) K/uL Lymph # (Auto) (1.0-4.3) K/uL Bent # (Auto) (0.0-0.8) K/uL Eos # (Auto) (0.0-0.7) K/uL Baso # (Auto) (0.0-0.2) K/uL Neutrophils % (Manual) (50-75) % Lymphocytes % (Manual) (20-40) % Monocytes % (Manual) Platelet Estimate (NORMAL) Hypochromasia (manual) Poikilocytosis (manual Anisocytosis (manual) Target Cells Tear Drop Cells Ovalocytes PT (9.7-12.2) SECONDS INR APTT (21-34) SECONDS Lactate (0.7-2.1) mmol/L Sodium (132-148) mmol/L Potassium (3.6-5.2) mmol/L Chloride (98-107) mmol/L Carbon Dioxide (22-30) mmol/L Anion Gap (10-20) BUN (7-17) mg/dL Creatinine (0.7-1.2) mg/dL Est GFR ( Amer) Est GFR (Non-Af Amer) POC Glucose (mg/dL) 359 H (65-110) mg/dL Random Glucose (65-105) mg/dL Lactic Acid 1.9 (0.7-2.1) mmol/L Calcium (8.6-10.4) mg/dl Phosphorus (2.5-4.5) mg/dL Magnesium (1.6-2.3) mg/dL Total Bilirubin (0.2-1.3) mg/dL AST (14-36) U/L ALT (9-52) U/L Alkaline Phosphatase (38-126) U/L Total Creatine Kinase 74 (30-135) U/L CK-MB (Mass) 2.19 (0.0-3.38) ng/mL Troponin I 0.0180 (0.00-0.120) ng/mL Total Protein (6.3-8.3) g/dL Albumin (3.5-5.0) g/dL Globulin (2.2-3.9) gm/dL Albumin/Globulin Ratio (1.0-2.1) Lipase (23-300) U/L Blood Type Antibody Screen 10/28/17 10/27/17 10/27/17 Range/Units 04:17 23:01 21:05 WBC 9.8 (4.8-10.8) K/uL RBC 3.23 L (3.80-5.20) Mil/uL Hgb 8.9 L (11.0-16.0) g/dL Hct 27.1 L (34.0-47.0) % MCV 84.0 (81.0-99.0) fL MCH 27.7 (27.0-31.0) pg MCHC 33.0 (33.0-37.0) g/dL RDW 14.9 H (11.5-14.5) % Plt Count 221 (130-400) K/uL MPV 9.1 (7.2-11.7) fL Neut % (Auto) 93.5 H (50.0-75.0) % Lymph % (Auto) 5.8 L (20.0-40.0) % Bent % (Auto) 0.5 (0.0-10.0) % Eos % (Auto) 0.0 (0.0-4.0) % Baso % (Auto) 0.2 (0.0-2.0) % Neut # (Auto) 9.2 H (1.8-7.0) K/uL Lymph # (Auto) 0.6 L (1.0-4.3) K/uL Bent # (Auto) 0.0 (0.0-0.8) K/uL Eos # (Auto) 0.0 (0.0-0.7) K/uL Baso # (Auto) 0.0 (0.0-0.2) K/uL Neutrophils % (Manual) 96 H (50-75) % Lymphocytes % (Manual) 4 L (20-40) % Monocytes % (Manual) TEST NOT PERFORMED Platelet Estimate Normal (NORMAL) Hypochromasia (manual) Slight Poikilocytosis (manual Slight Anisocytosis (manual) Slight Target Cells Slight Tear Drop Cells Ovalocytes PT (9.7-12.2) SECONDS INR APTT (21-34) SECONDS Lactate 2.0 (0.7-2.1) mmol/L Sodium (132-148) mmol/L Potassium (3.6-5.2) mmol/L Chloride (98-107) mmol/L Carbon Dioxide (22-30) mmol/L Anion Gap (10-20) BUN (7-17) mg/dL Creatinine (0.7-1.2) mg/dL Est GFR ( Amer) Est GFR (Non-Af Amer) POC Glucose (mg/dL) 286 H (65-110) mg/dL Random Glucose (65-105) mg/dL Lactic Acid (0.7-2.1) mmol/L Calcium (8.6-10.4) mg/dl Phosphorus (2.5-4.5) mg/dL Magnesium (1.6-2.3) mg/dL Total Bilirubin (0.2-1.3) mg/dL AST (14-36) U/L ALT (9-52) U/L Alkaline Phosphatase (38-126) U/L Total Creatine Kinase (30-135) U/L CK-MB (Mass) (0.0-3.38) ng/mL Troponin I (0.00-0.120) ng/mL Total Protein (6.3-8.3) g/dL Albumin (3.5-5.0) g/dL Globulin (2.2-3.9) gm/dL Albumin/Globulin Ratio (1.0-2.1) Lipase (23-300) U/L Blood Type Antibody Screen 10/27/17 10/27/17 10/27/17 Range/Units 21:00 21:00 19:10 WBC 9.6 (4.8-10.8) K/uL RBC 3.53 L (3.80-5.20) Mil/uL Hgb 9.8 L (11.0-16.0) g/dL Hct 29.5 L (34.0-47.0) % MCV 83.8 (81.0-99.0) fL MCH 27.9 (27.0-31.0) pg MCHC 33.2 (33.0-37.0) g/dL RDW 15.2 H (11.5-14.5) % Plt Count 239 (130-400) K/uL MPV 8.7 (7.2-11.7) fL Neut % (Auto) 83.8 H (50.0-75.0) % Lymph % (Auto) 11.1 L (20.0-40.0) % Bent % (Auto) 3.5 (0.0-10.0) % Eos % (Auto) 1.1 (0.0-4.0) % Baso % (Auto) 0.5 (0.0-2.0) % Neut # (Auto) 8.0 H (1.8-7.0) K/uL Lymph # (Auto) 1.1 (1.0-4.3) K/uL Bent # (Auto) 0.3 (0.0-0.8) K/uL Eos # (Auto) 0.1 (0.0-0.7) K/uL Baso # (Auto) 0.1 (0.0-0.2) K/uL Neutrophils % (Manual) (50-75) % Lymphocytes % (Manual) (20-40) % Monocytes % (Manual) Platelet Estimate (NORMAL) Hypochromasia (manual) Poikilocytosis (manual Anisocytosis (manual) Target Cells Tear Drop Cells Ovalocytes PT (9.7-12.2) SECONDS INR APTT (21-34) SECONDS Lactate (0.7-2.1) mmol/L Sodium (132-148) mmol/L Potassium (3.6-5.2) mmol/L Chloride (98-107) mmol/L Carbon Dioxide (22-30) mmol/L Anion Gap (10-20) BUN (7-17) mg/dL Creatinine (0.7-1.2) mg/dL Est GFR ( Amer) Est GFR (Non-Af Amer) POC Glucose (mg/dL) (65-110) mg/dL Random Glucose (65-105) mg/dL Lactic Acid 1.6 (0.7-2.1) mmol/L Calcium (8.6-10.4) mg/dl Phosphorus (2.5-4.5) mg/dL Magnesium (1.6-2.3) mg/dL Total Bilirubin (0.2-1.3) mg/dL AST (14-36) U/L ALT (9-52) U/L Alkaline Phosphatase (38-126) U/L Total Creatine Kinase (30-135) U/L CK-MB (Mass) (0.0-3.38) ng/mL Troponin I (0.00-0.120) ng/mL Total Protein (6.3-8.3) g/dL Albumin (3.5-5.0) g/dL Globulin (2.2-3.9) gm/dL Albumin/Globulin Ratio (1.0-2.1) Lipase (23-300) U/L Blood Type A POSITIVE Antibody Screen Negative 10/27/17 10/27/17 10/27/17 Range/Units 19:10 19:10 19:10 WBC 8.8 (4.8-10.8) K/uL RBC 3.56 L (3.80-5.20) Mil/uL Hgb 9.8 L D (11.0-16.0) g/dL Hct 29.6 L (34.0-47.0) % MCV 83.2 D (81.0-99.0) fL MCH 27.6 (27.0-31.0) pg MCHC 33.2 (33.0-37.0) g/dL RDW 15.0 H (11.5-14.5) % Plt Count 253 (130-400) K/uL MPV 8.8 (7.2-11.7) fL Neut % (Auto) 73.9 (50.0-75.0) % Lymph % (Auto) 15.2 L (20.0-40.0) % Bent % (Auto) 7.4 (0.0-10.0) % Eos % (Auto) 2.7 (0.0-4.0) % Baso % (Auto) 0.8 (0.0-2.0) % Neut # (Auto) 6.5 (1.8-7.0) K/uL Lymph # (Auto) 1.3 (1.0-4.3) K/uL Bent # (Auto) 0.6 (0.0-0.8) K/uL Eos # (Auto) 0.2 (0.0-0.7) K/uL Baso # (Auto) 0.1 (0.0-0.2) K/uL Neutrophils % (Manual) (50-75) % Lymphocytes % (Manual) (20-40) % Monocytes % (Manual) Platelet Estimate (NORMAL) Hypochromasia (manual) Poikilocytosis (manual Anisocytosis (manual) Target Cells Tear Drop Cells Ovalocytes PT 11.4 (9.7-12.2) SECONDS INR 1.0 APTT 33 (21-34) SECONDS Lactate (0.7-2.1) mmol/L Sodium 130 L (132-148) mmol/L Potassium 4.5 (3.6-5.2) mmol/L Chloride 96 L (98-107) mmol/L Carbon Dioxide 24 (22-30) mmol/L Anion Gap 15 (10-20) BUN 33 H (7-17) mg/dL Creatinine 1.5 H (0.7-1.2) mg/dL Est GFR ( Amer) 40 Est GFR (Non-Af Amer) 33 POC Glucose (mg/dL) (65-110) mg/dL Random Glucose 299 H (65-105) mg/dL Lactic Acid (0.7-2.1) mmol/L Calcium 9.3 (8.6-10.4) mg/dl Phosphorus (2.5-4.5) mg/dL Magnesium (1.6-2.3) mg/dL Total Bilirubin 0.6 (0.2-1.3) mg/dL AST 223 H (14-36) U/L ALT 290 H D (9-52) U/L Alkaline Phosphatase 559 H (38-126) U/L Total Creatine Kinase (30-135) U/L CK-MB (Mass) (0.0-3.38) ng/mL Troponin I (0.00-0.120) ng/mL Total Protein 6.4 (6.3-8.3) g/dL Albumin 3.7 (3.5-5.0) g/dL Globulin 2.7 (2.2-3.9) gm/dL Albumin/Globulin Ratio 1.4 (1.0-2.1) Lipase 186 (23-300) U/L Blood Type Antibody Screen 10/27/17 Range/Units 19:00 WBC (4.8-10.8) K/uL RBC (3.80-5.20) Mil/uL Hgb (11.0-16.0) g/dL Hct (34.0-47.0) % MCV (81.0-99.0) fL MCH (27.0-31.0) pg MCHC (33.0-37.0) g/dL RDW (11.5-14.5) % Plt Count (130-400) K/uL MPV (7.2-11.7) fL Neut % (Auto) (50.0-75.0) % Lymph % (Auto) (20.0-40.0) % Bent % (Auto) (0.0-10.0) % Eos % (Auto) (0.0-4.0) % Baso % (Auto) (0.0-2.0) % Neut # (Auto) (1.8-7.0) K/uL Lymph # (Auto) (1.0-4.3) K/uL Bent # (Auto) (0.0-0.8) K/uL Eos # (Auto) (0.0-0.7) K/uL Baso # (Auto) (0.0-0.2) K/uL Neutrophils % (Manual) (50-75) % Lymphocytes % (Manual) (20-40) % Monocytes % (Manual) Platelet Estimate (NORMAL) Hypochromasia (manual) Poikilocytosis (manual Anisocytosis (manual) Target Cells Tear Drop Cells Ovalocytes PT (9.7-12.2) SECONDS INR APTT (21-34) SECONDS Lactate (0.7-2.1) mmol/L Sodium (132-148) mmol/L Potassium (3.6-5.2) mmol/L Chloride (98-107) mmol/L Carbon Dioxide (22-30) mmol/L Anion Gap (10-20) BUN (7-17) mg/dL Creatinine (0.7-1.2) mg/dL Est GFR ( Amer) Est GFR (Non-Af Amer) POC Glucose (mg/dL) (65-110) mg/dL Random Glucose (65-105) mg/dL Lactic Acid (0.7-2.1) mmol/L Calcium (8.6-10.4) mg/dl Phosphorus (2.5-4.5) mg/dL Magnesium (1.6-2.3) mg/dL Total Bilirubin (0.2-1.3) mg/dL AST (14-36) U/L ALT (9-52) U/L Alkaline Phosphatase (38-126) U/L Total Creatine Kinase 87 (30-135) U/L CK-MB (Mass) 1.73 (0.0-3.38) ng/mL Troponin I 0.0130 (0.00-0.120) ng/mL Total Protein (6.3-8.3) g/dL Albumin (3.5-5.0) g/dL Globulin (2.2-3.9) gm/dL Albumin/Globulin Ratio (1.0-2.1) Lipase (23-300) U/L Blood Type Antibody Screen Laboratory Results - last 24 hr 10/27/17 10/27/17 10/27/17 19:00 19:10 19:10 WBC 8.8 RBC 3.56 L Hgb 9.8 L D Hct 29.6 L MCV 83.2 D MCH 27.6 MCHC 33.2 RDW 15.0 H Plt Count 253 MPV 8.8 Neut % (Auto) 73.9 Lymph % (Auto) 15.2 L Bent % (Auto) 7.4 Eos % (Auto) 2.7 Baso % (Auto) 0.8 Neut # (Auto) 6.5 Lymph # (Auto) 1.3 Bent # (Auto) 0.6 Eos # (Auto) 0.2 Baso # (Auto) 0.1 Neutrophils % (Manual) Lymphocytes % (Manual) Monocytes % (Manual) Platelet Estimate Hypochromasia (manual) Poikilocytosis (manual Anisocytosis (manual) Target Cells Tear Drop Cells Ovalocytes PT 11.4 INR 1.0 APTT 33 Lactate Sodium Potassium Chloride Carbon Dioxide Anion Gap BUN Creatinine Est GFR ( Amer) Est GFR (Non-Af Amer) POC Glucose (mg/dL) Random Glucose Lactic Acid Calcium Phosphorus Magnesium Total Bilirubin AST ALT Alkaline Phosphatase Total Creatine Kinase 87 CK-MB (Mass) 1.73 Troponin I 0.0130 Total Protein Albumin Globulin Albumin/Globulin Ratio Lipase Blood Type Antibody Screen 10/27/17 10/27/17 10/27/17 19:10 19:10 21:00 WBC 9.6 RBC 3.53 L Hgb 9.8 L Hct 29.5 L MCV 83.8 MCH 27.9 MCHC 33.2 RDW 15.2 H Plt Count 239 MPV 8.7 Neut % (Auto) 83.8 H Lymph % (Auto) 11.1 L Bent % (Auto) 3.5 Eos % (Auto) 1.1 Baso % (Auto) 0.5 Neut # (Auto) 8.0 H Lymph # (Auto) 1.1 Bent # (Auto) 0.3 Eos # (Auto) 0.1 Baso # (Auto) 0.1 Neutrophils % (Manual) Lymphocytes % (Manual) Monocytes % (Manual) Platelet Estimate Hypochromasia (manual) Poikilocytosis (manual Anisocytosis (manual) Target Cells Tear Drop Cells Ovalocytes PT INR APTT Lactate Sodium 130 L Potassium 4.5 Chloride 96 L Carbon Dioxide 24 Anion Gap 15 BUN 33 H Creatinine 1.5 H Est GFR ( Amer) 40 Est GFR (Non-Af Amer) 33 POC Glucose (mg/dL) Random Glucose 299 H Lactic Acid Calcium 9.3 Phosphorus Magnesium Total Bilirubin 0.6 AST 223 H ALT 290 H D Alkaline Phosphatase 559 H Total Creatine Kinase CK-MB (Mass) Troponin I Total Protein 6.4 Albumin 3.7 Globulin 2.7 Albumin/Globulin Ratio 1.4 Lipase 186 Blood Type A POSITIVE Antibody Screen Negative 10/27/17 10/27/17 10/27/17 21:00 21:05 23:01 WBC RBC Hgb Hct MCV MCH MCHC RDW Plt Count MPV Neut % (Auto) Lymph % (Auto) Bent % (Auto) Eos % (Auto) Baso % (Auto) Neut # (Auto) Lymph # (Auto) Bent # (Auto) Eos # (Auto) Baso # (Auto) Neutrophils % (Manual) Lymphocytes % (Manual) Monocytes % (Manual) Platelet Estimate Hypochromasia (manual) Poikilocytosis (manual Anisocytosis (manual) Target Cells Tear Drop Cells Ovalocytes PT INR APTT Lactate 2.0 Sodium Potassium Chloride Carbon Dioxide Anion Gap BUN Creatinine Est GFR ( Amer) Est GFR (Non-Af Amer) POC Glucose (mg/dL) 286 H Random Glucose Lactic Acid 1.6 Calcium Phosphorus Magnesium Total Bilirubin AST ALT Alkaline Phosphatase Total Creatine Kinase CK-MB (Mass) Troponin I Total Protein Albumin Globulin Albumin/Globulin Ratio Lipase Blood Type Antibody Screen 10/28/17 10/28/17 10/28/17 04:17 04:17 04:18 WBC 9.8 RBC 3.23 L Hgb 8.9 L Hct 27.1 L MCV 84.0 MCH 27.7 MCHC 33.0 RDW 14.9 H Plt Count 221 MPV 9.1 Neut % (Auto) 93.5 H Lymph % (Auto) 5.8 L Bent % (Auto) 0.5 Eos % (Auto) 0.0 Baso % (Auto) 0.2 Neut # (Auto) 9.2 H Lymph # (Auto) 0.6 L Bent # (Auto) 0.0 Eos # (Auto) 0.0 Baso # (Auto) 0.0 Neutrophils % (Manual) 96 H Lymphocytes % (Manual) 4 L Monocytes % (Manual) TEST NOT PERFORMED Platelet Estimate Normal Hypochromasia (manual) Slight Poikilocytosis (manual Slight Anisocytosis (manual) Slight Target Cells Slight Tear Drop Cells Ovalocytes PT INR APTT Lactate Sodium Potassium Chloride Carbon Dioxide Anion Gap BUN Creatinine Est GFR ( Amer) Est GFR (Non-Af Amer) POC Glucose (mg/dL) Random Glucose Lactic Acid 1.9 Calcium Phosphorus Magnesium Total Bilirubin AST ALT Alkaline Phosphatase Total Creatine Kinase 74 CK-MB (Mass) 2.19 Troponin I 0.0180 Total Protein Albumin Globulin Albumin/Globulin Ratio Lipase Blood Type Antibody Screen 10/28/17 10/28/17 10/28/17 05:46 11:24 11:24 WBC 9.7 RBC 3.18 L Hgb 9.0 L Hct 26.8 L MCV 84.3 MCH 28.3 MCHC 33.6 RDW 15.4 H Plt Count 225 MPV 8.8 Neut % (Auto) 92.1 H Lymph % (Auto) 6.8 L Bent % (Auto) 0.9 Eos % (Auto) 0.0 Baso % (Auto) 0.2 Neut # (Auto) 8.9 H Lymph # (Auto) 0.7 L Bent # (Auto) 0.1 Eos # (Auto) 0.0 Baso # (Auto) 0.0 Neutrophils % (Manual) 91 H Lymphocytes % (Manual) 8 L Monocytes % (Manual) 1 Platelet Estimate Normal Hypochromasia (manual) Slight Poikilocytosis (manual Slight Anisocytosis (manual) Slight Target Cells Slight Tear Drop Cells Slight Ovalocytes Slight PT INR APTT Lactate Sodium 130 L Potassium 4.3 Chloride 98 Carbon Dioxide 18 L Anion Gap 18 BUN 31 H Creatinine 1.3 H Est GFR ( Amer) 47 Est GFR (Non-Af Amer) 39 POC Glucose (mg/dL) 359 H Random Glucose 388 H Lactic Acid Calcium 8.8 Phosphorus 4.5 Magnesium 1.8 Total Bilirubin 0.6 AST 123 H D ALT 225 H D Alkaline Phosphatase 494 H Total Creatine Kinase 77 CK-MB (Mass) 3.17 Troponin I 0.0240 Total Protein 6.0 L Albumin 3.4 L Globulin 2.6 Albumin/Globulin Ratio 1.3 Lipase Blood Type Antibody Screen 10/28/17 12:38 WBC RBC Hgb Hct MCV MCH MCHC RDW Plt Count MPV Neut % (Auto) Lymph % (Auto) Bent % (Auto) Eos % (Auto) Baso % (Auto) Neut # (Auto) Lymph # (Auto) Bent # (Auto) Eos # (Auto) Baso # (Auto) Neutrophils % (Manual) Lymphocytes % (Manual) Monocytes % (Manual) Platelet Estimate Hypochromasia (manual) Poikilocytosis (manual Anisocytosis (manual) Target Cells Tear Drop Cells Ovalocytes PT INR APTT Lactate Sodium Potassium Chloride Carbon Dioxide Anion Gap BUN Creatinine Est GFR ( Amer) Est GFR (Non-Af Amer) POC Glucose (mg/dL) 468 H* Random Glucose Lactic Acid Calcium Phosphorus Magnesium Total Bilirubin AST ALT Alkaline Phosphatase Total Creatine Kinase CK-MB (Mass) Troponin I Total Protein Albumin Globulin Albumin/Globulin Ratio Lipase Blood Type Antibody Screen EKG/Cardiology Studies: Cardiology / EKG Studies 10/27/17 19:03 ELECTROCARDIOGRAM Stat Comment: Mode Of Transportation: BED Reason For Exam: GI Bleeding Fingerstick Blood Sugar Results: 468 Review of Systems - Review of Systems All systems: reviewed and no additional remarkable complaints except (as per HPI ) Critical Care Progress Note - Prophylaxis GI Prophylaxis GI: PPI - Prophylaxis DVT Prophylaxis DVT: SCDs - Nutrition Nutrition: Nutrition Category Date Time Status Liquid Diet [DIET] Diets 10/28/17 Lunch Active Assessment/Plan - Assessment and Plan (Free Text) Plan: Patient is an 87 year old Cymro-speaking female with PMHx of HTN, DM, CVA ( 2013), anxiety, arthritis, who was admitted to the ICU for GI bleed. Bloody bowl movements improving. Will observe and continue to hold plavix. No GI intervention required at this time. Patient started on liquid diet, tolerated well. NG tube dc'ed due to no output. Protonix drip dc'ed. Neuro: - patient alert and oriented - continue to monitor Cardiovascular: - Systolic ejection murmur heard; suspected aortic stenosis. Echocardiogram ordered. - f/u echo 10/27/17 - BP controlled. Hydralazine 10mg IVP q4h PRN. Maintain SBP < 150 - Troponin negative x3 Respiratory: - maintain SpO2 > 95% - CXR (10/27/17): No active disease. (see full report) Renal: - NaCl 0.45% @ 45cc/hr - BUN/Cr: 31/1.3 Infectious disease - Afebrile; 98.1 F - WBC 9.7 (normal) - Flagyl 500mg IVPB q8h Hematology - H/H 9.0/26.8 - continue to monitor -transfuse as necessary Gastrointestinal: - LFT 10/28: downtrending, AST: 223, ALT: 290, AlP: 494 - abdominal ultrasound (10/28/17): pending - GI Dr. Chavez consulted for GI bleed H/H stable, continue to monitor and transfuse as necessary; Obtain viral hepatitis panel; Obtain abdominal US; Continue to monitor LFTs; Plavix currently held, will continue with supportive care and observation. Patient may benefit from endoscopic evaluation if bleeding persists or can be performed electively as outpatient if symptoms resolve. Will continue to monitor patient clinical course. - D/C'ed NG tube due to no bloody output since admission. - CT abdomen and pelvis 10/27/17: Possible gallstones. No definite CT evidence of acute cholecystitis or biliary tract obstruction. Endocrine: - Insulin sliding scale (changed from medium to high due to hyperglycemia) - continue to monitor Prophylaxis: - contraindication for VTE therapy: active GI bleed - SCDs ordered Dispo: continue ICU management Case discussed with Dr. Medina.
[2017-10-28] MEDS ORDERED: (Novolog) Insulin Aspart, Recombinant 100 u/ml 10 ml vial SC SCH (15:30)
[2017-10-28] MEDS ORDERED: Pantoprazole 80 MG in Sodium Chloride 0.9% 100 ML IVPB SCH (16:00)
--- NOTE | 2017-10-28 18:42 | CP.PCM.HP ---
Past Patient History - Past Medical History & Family History Past Medical History?: Yes - Past Social History Smoking Status: Never Smoked - CARDIAC Hx Hypertension: Yes - PULMONARY Hx Respiratory Disorders: No - NEUROLOGICAL Hx Neurological Disorder: No - HEENT Hx HEENT Problems: No - RENAL Hx Chronic Kidney Disease: No - ENDOCRINE/METABOLIC Hx Diabetes Mellitus Type 2: Yes - HEMATOLOGICAL/ONCOLOGICAL Hx Blood Disorders: No - INTEGUMENTARY Hx Dermatological Problems: No - MUSCULOSKELETAL/RHEUMATOLOGICAL Hx Arthritis: Yes - GASTROINTESTINAL Hx Gastrointestinal Disorders: No - GENITOURINARY/GYNECOLOGICAL Hx Genitourinary Disorders: No - PSYCHIATRIC Hx Anxiety: Yes Hx Substance Use: No - SURGICAL HISTORY Hx Surgeries: No - ANESTHESIA Hx Anesthesia: Yes Hx Anesthesia Reactions: No Meds Allergies/Adverse Reactions: Allergies Allergy/AdvReac Type Severity Reaction Status Date / Time Penicillins Allergy Verified 10/27/17 19:02 Physical Exam - Constitutional Appears: Well - Head Exam Head Exam: ATRAUMATIC, NORMAL INSPECTION, NORMOCEPHALIC - Eye Exam Eye Exam: EOMI, Normal appearance, PERRL Pupil Exam: NORMAL ACCOMODATION, PERRL - ENT Exam ENT Exam: Mucous Membranes Moist, Normal Exam - Neck Exam Neck exam: Positive for: Normal Inspection - Respiratory Exam Respiratory Exam: Decreased Breath Sounds - Cardiovascular Exam Cardiovascular Exam: REGULAR RHYTHM, +S1, +S2 - GI/Abdominal Exam GI & Abdominal Exam: Diminished Bowel Sounds, Soft - Rectal Exam Rectal Exam: Deferred Results - Vital Signs Recent Vital Signs: Last Vital Signs Temp 97.8 F 10/28/17 16:00 Pulse 68 10/28/17 16:10 Resp 22 10/28/17 16:10 BP 136/43 L 10/28/17 16:10 Pulse Ox 98 10/28/17 16:10 - Labs Result Diagrams: 10/28/17 11:24 10/28/17 11:24 Labs: Laboratory Results - last 24 hr 10/27/17 10/27/17 10/27/17 19:00 19:10 19:10 WBC 8.8 RBC 3.56 L Hgb 9.8 L D Hct 29.6 L MCV 83.2 D MCH 27.6 MCHC 33.2 RDW 15.0 H Plt Count 253 MPV 8.8 Neut % (Auto) 73.9 Lymph % (Auto) 15.2 L [place] % (Auto) 7.4 Eos % (Auto) 2.7 Baso % (Auto) 0.8 Neut # (Auto) 6.5 Lymph # (Auto) 1.3 [place] # (Auto) 0.6 Eos # (Auto) 0.2 Baso # (Auto) 0.1 Neutrophils % (Manual) Lymphocytes % (Manual) Monocytes % (Manual) Platelet Estimate Hypochromasia (manual) Poikilocytosis (manual Anisocytosis (manual) Target Cells Tear Drop Cells Ovalocytes PT 11.4 INR 1.0 APTT 33 Lactate Sodium Potassium Chloride Carbon Dioxide Anion Gap BUN Creatinine Est GFR ( Amer) Est GFR (Non-Af Amer) POC Glucose (mg/dL) Random Glucose Lactic Acid Calcium Phosphorus Magnesium Total Bilirubin AST ALT Alkaline Phosphatase Total Creatine Kinase 87 CK-MB (Mass) 1.73 Troponin I 0.0130 Total Protein Albumin Globulin Albumin/Globulin Ratio Lipase Blood Type Antibody Screen 10/27/17 10/27/17 10/27/17 19:10 19:10 20:13 WBC RBC Hgb Hct MCV MCH MCHC RDW Plt Count MPV Neut % (Auto) Lymph % (Auto) [place] % (Auto) Eos % (Auto) Baso % (Auto) Neut # (Auto) Lymph # (Auto) [place] # (Auto) Eos # (Auto) Baso # (Auto) Neutrophils % (Manual) Lymphocytes % (Manual) Monocytes % (Manual) Platelet Estimate Hypochromasia (manual) Poikilocytosis (manual Anisocytosis (manual) Target Cells Tear Drop Cells Ovalocytes PT INR APTT Lactate Sodium 130 L Potassium 4.5 Chloride 96 L Carbon Dioxide 24 Anion Gap 15 BUN 33 H Creatinine 1.5 H Est GFR ( Amer) 40 Est GFR (Non-Af Amer) 33 POC Glucose (mg/dL) 248 H Random Glucose 299 H Lactic Acid Calcium 9.3 Phosphorus Magnesium Total Bilirubin 0.6 AST 223 H ALT 290 H D Alkaline Phosphatase 559 H Total Creatine Kinase CK-MB (Mass) Troponin I Total Protein 6.4 Albumin 3.7 Globulin 2.7 Albumin/Globulin Ratio 1.4 Lipase 186 Blood Type A POSITIVE Antibody Screen Negative 10/27/17 10/27/17 10/27/17 21:00 21:00 21:05 WBC 9.6 RBC 3.53 L Hgb 9.8 L Hct 29.5 L MCV 83.8 MCH 27.9 MCHC 33.2 RDW 15.2 H Plt Count 239 MPV 8.7 Neut % (Auto) 83.8 H Lymph % (Auto) 11.1 L [place] % (Auto) 3.5 Eos % (Auto) 1.1 Baso % (Auto) 0.5 Neut # (Auto) 8.0 H Lymph # (Auto) 1.1 [place] # (Auto) 0.3 Eos # (Auto) 0.1 Baso # (Auto) 0.1 Neutrophils % (Manual) Lymphocytes % (Manual) Monocytes % (Manual) Platelet Estimate Hypochromasia (manual) Poikilocytosis (manual Anisocytosis (manual) Target Cells Tear Drop Cells Ovalocytes PT INR APTT Lactate 2.0 Sodium Potassium Chloride Carbon Dioxide Anion Gap BUN Creatinine Est GFR ( Amer) Est GFR (Non-Af Amer) POC Glucose (mg/dL) Random Glucose Lactic Acid 1.6 Calcium Phosphorus Magnesium Total Bilirubin AST ALT Alkaline Phosphatase Total Creatine Kinase CK-MB (Mass) Troponin I Total Protein Albumin Globulin Albumin/Globulin Ratio Lipase Blood Type Antibody Screen 10/27/17 10/28/17 10/28/17 23:01 04:17 04:17 WBC 9.8 RBC 3.23 L Hgb 8.9 L Hct 27.1 L MCV 84.0 MCH 27.7 MCHC 33.0 RDW 14.9 H Plt Count 221 MPV 9.1 Neut % (Auto) 93.5 H Lymph % (Auto) 5.8 L [place] % (Auto) 0.5 Eos % (Auto) 0.0 Baso % (Auto) 0.2 Neut # (Auto) 9.2 H Lymph # (Auto) 0.6 L [place] # (Auto) 0.0 Eos # (Auto) 0.0 Baso # (Auto) 0.0 Neutrophils % (Manual) 96 H Lymphocytes % (Manual) 4 L Monocytes % (Manual) TEST NOT PERFORMED Platelet Estimate Normal Hypochromasia (manual) Slight Poikilocytosis (manual Slight Anisocytosis (manual) Slight Target Cells Slight Tear Drop Cells Ovalocytes PT INR APTT Lactate Sodium Potassium Chloride Carbon Dioxide Anion Gap BUN Creatinine Est GFR ( Amer) Est GFR (Non-Af Amer) POC Glucose (mg/dL) 286 H Random Glucose Lactic Acid Calcium Phosphorus Magnesium Total Bilirubin AST ALT Alkaline Phosphatase Total Creatine Kinase 74 CK-MB (Mass) 2.19 Troponin I 0.0180 Total Protein Albumin Globulin Albumin/Globulin Ratio Lipase Blood Type Antibody Screen 10/28/17 10/28/17 10/28/17 04:18 05:46 11:24 WBC 9.7 RBC 3.18 L Hgb 9.0 L Hct 26.8 L MCV 84.3 MCH 28.3 MCHC 33.6 RDW 15.4 H Plt Count 225 MPV 8.8 Neut % (Auto) 92.1 H Lymph % (Auto) 6.8 L [place] % (Auto) 0.9 Eos % (Auto) 0.0 Baso % (Auto) 0.2 Neut # (Auto) 8.9 H Lymph # (Auto) 0.7 L [place] # (Auto) 0.1 Eos # (Auto) 0.0 Baso # (Auto) 0.0 Neutrophils % (Manual) 91 H Lymphocytes % (Manual) 8 L Monocytes % (Manual) 1 Platelet Estimate Normal Hypochromasia (manual) Slight Poikilocytosis (manual Slight Anisocytosis (manual) Slight Target Cells Slight Tear Drop Cells Slight Ovalocytes Slight PT INR APTT Lactate Sodium Potassium Chloride Carbon Dioxide Anion Gap BUN Creatinine Est GFR ( Amer) Est GFR (Non-Af Amer) POC Glucose (mg/dL) 359 H Random Glucose Lactic Acid 1.9 Calcium Phosphorus Magnesium Total Bilirubin AST ALT Alkaline Phosphatase Total Creatine Kinase CK-MB (Mass) Troponin I Total Protein Albumin Globulin Albumin/Globulin Ratio Lipase Blood Type Antibody Screen 10/28/17 10/28/17 10/28/17 11:24 12:38 16:06 WBC RBC Hgb Hct MCV MCH MCHC RDW Plt Count MPV Neut % (Auto) Lymph % (Auto) [place] % (Auto) Eos % (Auto) Baso % (Auto) Neut # (Auto) Lymph # (Auto) [place] # (Auto) Eos # (Auto) Baso # (Auto) Neutrophils % (Manual) Lymphocytes % (Manual) Monocytes % (Manual) Platelet Estimate Hypochromasia (manual) Poikilocytosis (manual Anisocytosis (manual) Target Cells Tear Drop Cells Ovalocytes PT INR APTT Lactate Sodium 130 L Potassium 4.3 Chloride 98 Carbon Dioxide 18 L Anion Gap 18 BUN 31 H Creatinine 1.3 H Est GFR ( Amer) 47 Est GFR (Non-Af Amer) 39 POC Glucose (mg/dL) 468 H* 412 H* Random Glucose 388 H Lactic Acid Calcium 8.8 Phosphorus 4.5 Magnesium 1.8 Total Bilirubin 0.6 AST 123 H D ALT 225 H D Alkaline Phosphatase 494 H Total Creatine Kinase 77 CK-MB (Mass) 3.17 Troponin I 0.0240 Total Protein 6.0 L Albumin 3.4 L Globulin 2.6 Albumin/Globulin Ratio 1.3 Lipase Blood Type Antibody Screen
[2017-10-28 21:52] LABS: BASO % 0.2 % (0.0-2.0); HEMOGLOBIN 8.1 g/dL (11.0-16.0); LYMPH # 0.9 K/uL (1.0-4.3); LYMPH % 7.3 % (20.0-40.0); MEAN CELL VOLUME 83.9 fL (81.0-99.0); MEAN CORPUSCULAR HEMOGLOBIN 27.2 pg (27.0-31.0); MEAN CORPUSCULAR HGB CONC 32.5 g/dL (33.0-37.0); MEAN PLATELET VOLUME 8.7 fL (7.2-11.7); MONO % 8.2 % (0.0-10.0); NEUT # 10.6 K/uL (1.8-7.0); NEUT % 84.3 % (50.0-75.0); PLATELET COUNT 237 K/uL (130-400); RBC 2.98 Mil/uL (3.80-5.20); RED CELL DISTRIBUTION WIDTH 15.1 % (11.5-14.5); WHITE BLOOD COUNT 12.6 K/uL (4.8-10.8)
--- NOTE | 2017-10-28 21:56 | CARD ---
APPROVED REPORT Date of service: 10/28/2017 EXAM: Two-dimensional and M-mode echocardiogram with Doppler and color Doppler. Other Information Quality : LimitedRhythm : NSR INDICATION Aortic Valve Disease Cardiac Disease: CAD Congestive Heart Failure RISK FACTORS Hypertension Diabetes 2D DIMENSIONS IVSd0.9 (0.7-1.1cm)Aortic Root (2D)2.7 (2.0-3.7cm) LVDd4.2 (3.9-5.9cm)PWd1.2 (0.7-1.1cm) LVDs3.4 (2.5-4.0cm)FS (%) 18.2 % LVEF (%)65.0 (>50%) M-Mode DIMENSIONS RVDd2.69 (2.1-3.2cm)Left Atrium (MM)4.08 (2.5-4.0cm) IVSd1.05 (0.7-1.1cm)Aortic Root2.97 (2.2-3.7cm) LVDd4.10 (4.0-5.6cm)Aortic Cusp Exc.1.77 (1.5-2.0cm) PWd1.48 (0.7-1.1cm)FS (%) 15 % LVDs3.48 (2.0-3.8cm)LVEF (%)60 (>50%) Aortic Valve AoV Peak Mbvmrujz459.6cm/sAoV VTI88.3cmAO Peak GR.44mmHg AO Mean GR.25mmHg Mitral Valve MV E Vfdduvas577.3cm/sMV A Kkfcepio523.6cm/sE/A ratio0.7 TDI E/Lateral E'0.0E/Medial E'0.0 Tricuspid Valve TR Peak Gxhtrncv267ot/sTR Peak Gr.66pdTaCACI69pfWq LEFT VENTRICLE The left ventricle is normal size. There is mild concentric left ventricular hypertrophy. Left ventricle systolic function is normal. The Ejection Fraction is 60-65%. There is normal LV segmental wall motion. Transmitral Doppler flow pattern is Grade I-abnormal relaxation pattern. There is no ventricular septal defect visualized. RIGHT VENTRICLE The right ventricle is normal size. The right ventricular systolic function is normal. ATRIA The left atrium is mildly dilated. The right atrium size is normal. AORTIC VALVE The aortic valve is mildly to moderately sclerotic. The aortic valve is probably tri-cuspid. There is trace aortic regurgitation. There is moderate valvular aortic stenosis. Calculated aortic valve area is ? cm2 with maximum pressure gradient of 44 mmHg and mean pressure gradient of 25 mmHg.No measurement of LVOT MITRAL VALVE The mitral valve is normal in structure. There is no evidence of mitral valve prolapse. Mitral regurgitation is trace. TRICUSPID VALVE The tricuspid valve is normal in structure. There is mild to moderate tricuspid regurgitation. Right ventricular systolic pressure is estimated at 30-40 mmHg. There is mild pulmonary hypertension. PULMONIC VALVE The pulmonic valve is not well visualized. There is no pulmonic valvular regurgitation. GREAT VESSELS The aortic root is normal in size. <Conclusion> There is mild concentric left ventricular hypertrophy. Left ventricle systolic function is normal. The Ejection Fraction is 60-65%. Transmitral Doppler flow pattern is Grade I-abnormal relaxation pattern. There is moderate valvular aortic stenosis. There is mild pulmonary hypertension.
[2017-10-28 22:23] LABS: LYMPHOCYTE 8 % (20-40); MONOCYTE 5 % (0-10); NEUTROPHIL 87 % (50-75); PLATELET ESTIMATE NORMAL (NORMAL); TOTAL CELLS COUNTED 100
[2017-10-28 22:24] LABS: ANISOCYTOSIS SLIGHT; HYPOCHROMIC SLIGHT; POIKILOCYTOSIS SLIGHT; TARGET CELLS SLIGHT
--- NOTE | 2017-10-28 23:16 | CARD ---
APPROVED REPORT Date of service: 10/27/2017 EKG Measurement Heart [id number] <Conclusion> Normal sinus rhythm Minimal voltage criteria for LVH, may be normal variant Inferior infarct, age undetermined Abnormal ECG
[2017-10-29] MEDS: metroNIDAZOLE IV 500 mg/100 ml 500 MG/100 ML BAG IVPB SCH ×3 (04:21→20:37)
[2017-10-29 06:31] LABS: BASO % 0.2 % (0.0-2.0); EOS % 0.1 % (0.0-4.0); HEMOGLOBIN 7.8 g/dL (11.0-16.0); LYMPH # 1.4 K/uL (1.0-4.3); LYMPH % 10.4 % (20.0-40.0); MEAN CORPUSCULAR HEMOGLOBIN 28.4 pg (27.0-31.0); MEAN CORPUSCULAR HGB CONC 33.8 g/dL (33.0-37.0); MEAN PLATELET VOLUME 9.3 fL (7.2-11.7); MONO # 0.8 K/uL (0.0-0.8); MONO % 5.9 % (0.0-10.0); NEUT # 11.4 K/uL (1.8-7.0); NEUT % 83.4 % (50.0-75.0); RBC 2.75 Mil/uL (3.80-5.20); WHITE BLOOD COUNT 13.7 K/uL (4.8-10.8)
[2017-10-29 06:43] LABS: ALBUMIN 2.9 g/dL (3.5-5.0); CALCIUM 8.5 mg/dl (8.6-10.4)
[2017-10-29 07:06] LABS: HEPATITIS B SURFACE AG Negative (NEGATIVE)
[2017-10-29 07:12] LABS: HEPATITIS A IGM NEGATIVE (NEGATIVE); HEPATITIS B CORE AB NEGATIVE (NEGATIVE)
[2017-10-29 07:24] LABS: HEPATITIS C ANTIBODY NEGATIVE (NEGATIVE)
--- NOTE | 2017-10-29 07:29 | CP.PCM.PN ---
<Azael Hays - Last Filed: 10/29/17 09:20> Subjective - Date & Time of Evaluation Date of Evaluation: 10/29/17 Time of Evaluation: 07:20 - Subjective Subjective: PGY-4 GI Fellow Prog Note Pt lying in bed when seen this AM. States she feels a little nauseous, just spitting up saliva. Denied any hematemesis, melena nor hematochezia. Nursing states no BMs noted overnight. 5 point ROS negative other than stated above Objective - Vital Signs/Intake and Output Vital Signs (last 24 hours): Temp Pulse Resp BP Pulse Ox 98 F 93 H 23 126/41 L 100 10/29/17 04:00 10/28/17 22:00 10/28/17 22:00 10/28/17 21:59 10/28/17 21:59 Intake and Output: 10/29/17 10/29/17 06:59 18:59 Intake Total 790 Output Total 700 Balance 90 - Medications Medications: Current Medications Hydralazine HCl (Apresoline) 10 mg IVP Q4H PRN PRN Reason: Systolic Blood Pressure Last Admin: 10/28/17 21:01 Dose: 10 mg Metronidazole (Flagyl) 500 mg in 100 mls @ 100 mls/hr IVPB Q8H CATHERINE PRN Reason: Protocol Last Admin: 10/29/17 04:21 Dose: 100 mls/hr Sodium Chloride (Sodium Chloride 0.45%) 1,000 mls @ 45 mls/hr IV .[id number] [facility] Last Admin: 10/28/17 10:41 Dose: 45 mls/hr Insulin Aspart (Novolog) 0 unit SC ACHS CATHERINE PRN Reason: Protocol Last Admin: 10/28/17 21:08 Dose: Not Given Pantoprazole Sodium (Protonix Inj) 40 mg IVP DAILY [facility] Last Admin: 10/28/17 16:42 Dose: 40 mg - Labs Labs: 10/29/17 06:07 10/29/17 06:07 PT 11.4 SECONDS (9.7-12.2) 10/27/17 19:10 INR 1.0 10/27/17 19:10 APTT 33 SECONDS (21-34) 10/27/17 19:10 - Constitutional Appears: Well, Non-toxic - Head Exam Head Exam: ATRAUMATIC, NORMAL INSPECTION - Eye Exam Eye Exam: EOMI. absent: Conjunctival injection, Scleral icterus - Respiratory Exam Respiratory Exam: NORMAL BREATHING PATTERN. absent: Accessory Muscle Use, Wheezes - GI/Abdominal Exam GI & Abdominal Exam: Soft, Normal Bowel Sounds. absent: Bruit, Distended, Firm , Guarding, Rigid, Tenderness, Pulsatile Mass, Rebound Assessment and Plan - Assessment and Plan (Free Text) Assessment: 87 yo Hisp Female with CVA, DM presenting with bright red blood per rectum. # Hematochezia: Suspect related to Lower GI Bleed, perhaps diverticular or AVM related given h/o , especially since painless. Though BUN mildly elevated there are no other signs/symptoms to suggest brisk upper bleed. Hgb 8.9 from 12 in 2013. Had NG placed but there was reportedly no output from it. Reportedly had CSPY about 10 years ago that was normal per family report. Hgb slightly down this AM but no bloody BMs reported. # Transamnitis: Improving. Unclear etiology. AST 223, ALT 290 and AP 559, Bili 0.6. Possible stone in duct in L lobe of liver per prelim read. No abd pain at this time. Underlying auto-immune? # H/o ?CHF, CAD, : No previous reports on file. Repeat Echo with and pEF. Family deny h/o CAD and CHF Plan: - Cont to hold clopidogrel (last dose on Saturday, baby ASA Sat night) - Monitor Hgb, transfuse if <7 - If bleeds over next few days/sig Hgb drop will consider Colonoscopy, but given hemodynamically stable will let clopidogrel wash out for now and monitor closely for self-resolution - Clear liquid diet - RUQ US report pending - Daily CMPs - Checking RADHA w/reflex, AMA and Anti-SM Pt seen and examined with Dr. Martinez <Macho Martinez - Last Filed: 10/29/17 09:37> Objective - Vital Signs/Intake and Output Vital Signs (last 24 hours): Temp Pulse Resp BP Pulse Ox 98 F 93 H 23 126/41 L 100 10/29/17 04:00 10/28/17 22:00 10/28/17 22:00 10/28/17 21:59 10/28/17 21:59 Intake and Output: 10/29/17 10/29/17 06:59 18:59 Intake Total 790 Output Total 700 Balance 90 - Medications Medications: Current Medications Hydralazine HCl (Apresoline) 10 mg IVP Q4H PRN PRN Reason: Systolic Blood Pressure Last Admin: 10/28/17 21:01 Dose: 10 mg Metronidazole (Flagyl) 500 mg in 100 mls @ 100 mls/hr IVPB Q8H CATHERINE PRN Reason: Protocol Last Admin: 10/29/17 04:21 Dose: 100 mls/hr Sodium Chloride (Sodium Chloride 0.45%) 1,000 mls @ 45 mls/hr IV .[id number] CATHERINE Last Admin: 10/28/17 10:41 Dose: 45 mls/hr Insulin Aspart (Novolog) 0 unit SC ACHS CATHERINE PRN Reason: Protocol Last Admin: 10/28/17 21:08 Dose: Not Given Ondansetron HCl (Zofran Tab) 4 mg PO Q8 CATHERINE Pantoprazole Sodium (Protonix Inj) 40 mg IVP DAILY [facility] Last Admin: 10/28/17 16:42 Dose: 40 mg - Labs Labs: 10/29/17 06:07 10/29/17 06:07 PT 11.4 SECONDS (9.7-12.2) 10/27/17 19:10 INR 1.0 10/27/17 19:10 APTT 33 SECONDS (21-34) 10/27/17 19:10 Attending/Attestation - Attestation I have personally seen and examined this patient.: Yes I have fully participated in the care of the patient.: Yes I have reviewed all pertinent clinical information, including history, physical exam and plan: Yes Notes (Text): 10/29/17 09:35 I have seen and examined patient with GI fellow. No acute events overnight, she is seen resting in bed comfortably. She denies abdominal pain, nausea, vomiting, diarrhea, fever/chills, or recurrent bloody bowel movements. Tolerating PO liquids without difficulty. Review of vitals from today are normal. CVA on plavix (held) DM Rectal bleeding - Continue with liquid diet - H/H stable, continue to monitor and transfuse as necessary - Continue to monitor LFTs, trending down. Viral hepatitis panel negative. - Obtain autoimmune panel given elevation in alk phos - Follow up abdominal US results - Ideally would prefer for patient to undergo outpatient elective colonoscopy following resolution of acute events, will continue to monitor clinical course
[2017-10-29] MEDS: (Novolog) Insulin Aspart, Recombinant 100 u/ml 10 ml vial SC SCH ×4 (07:45→21:21)
[2017-10-29] MEDS: Sodium Chloride 0.45% 1,000 ML IV SCH (11:55)
--- NOTE | 2017-10-29 12:10 | CP.CCUPN ---
CCU Subjective - Physician Review Subjective (Free Text): Patient seen and examined at bedside. Patient reports she feels better now, nausea has resolved. Denied any bloody vomitus or bowel movement, last BM was yesterday afternoon - which she admits was bloody. CCU Objective - Vital Signs / Intake & Output Intake and Output (Last 8hrs): Intake & Output 10/28/17 10/29/17 10/29/17 22:59 06:59 14:59 Intake Total 1005 455 Output Total 800 400 Balance 205 55 Weight 193 lb 9.6 oz Intake: Intake, IV Amount 425 405 Left Distal Port Hand 415 405 Left Hand 10 Oral 580 50 Output: Urine 600 400 Urine, Voided 600 400 Urine/Stool Mix 200 Other: # Voids Urine, Voided 1 # Bowel Movements 0 0 - Physical Exam Head: Positive for: Atraumatic, Normocephalic Extroacular Muscles: Positive for: EOMI Conjunctiva: Positive for: Other (pale) Ears: Positive for: Other (hard of hearing) Mouth: Positive for: Moist Mucous Membranes Respiratory/Chest: Positive for: Clear to Auscultation. Negative for: Wheezes, Rales, Rhonchi Cardiovascular: Positive for: Regular Rate and Rhythm, Murmurs (systolic ejection murmur), Normal S1, S2 Abdomen: Positive for: Normal Bowel Sounds. Negative for: Tenderness Lower Extremity: Positive for: NORMAL PULSES Neurological: Positive for: CN II-XII Intact, Speech Normal Skin: Positive for: Warm, Dry, Pale Psychiatric: Positive for: Alert, Oriented x 3 - Medications Active Medications: Active Medications Generic Name Dose Route Start Last Admin Trade Name Fazalq PRN Reason Stop Dose Admin Hydralazine HCl 10 mg 10/27/17 20:29 10/28/17 21:01 Apresoline IVP 10 mg Q4H PRN Administration Systolic Blood Pressure Metronidazole 500 mg in 100 mls @ 100 mls/hr 10/27/17 20:30 10/29/17 11:57 Flagyl IVPB 100 mls/hr Q8H CATHERINE Administration Protocol Sodium Chloride 1,000 mls @ 45 mls/hr 10/28/17 10:00 10/29/17 11:55 Sodium Chloride 0.45% IV 45 mls/hr .[id number] CATHERINE Administration Insulin Aspart 0 unit 10/28/17 16:30 10/29/17 12:05 Novolog SC 10 u ACHS CATHERINE Administration Protocol Ondansetron HCl 4 mg 10/29/17 11:59 Zofran Tab PO Q8 PRN Nausea/Vomiting Pantoprazole Sodium 40 mg 10/28/17 16:00 10/29/17 11:57 Protonix Inj IVP 40 mg DAILY CATHERINE Administration - Patient Studies Lab Studies: Microbiology Studies 10/27/17 06:41 Blood Culture - Preliminary Blood-Venous NO GROWTH AFTER 24 HOURS 10/27/17 06:41 Blood Culture - Preliminary Blood-Venous NO GROWTH AFTER 24 HOURS Lab Studies 10/29/17 10/29/17 10/29/17 Range/Units 11:30 07:25 06:07 WBC 13.7 H (4.8-10.8) K/uL RBC 2.75 L (3.80-5.20) Mil/uL Hgb 7.8 L (11.0-16.0) g/dL Hct 23.1 L (34.0-47.0) % MCV 84.0 (81.0-99.0) fL MCH 28.4 (27.0-31.0) pg MCHC 33.8 (33.0-37.0) g/dL RDW 15.0 H (11.5-14.5) % Plt Count 227 (130-400) K/uL MPV 9.3 (7.2-11.7) fL Neut % (Auto) 83.4 H (50.0-75.0) % Lymph % (Auto) 10.4 L (20.0-40.0) % [place] % (Auto) 5.9 (0.0-10.0) % Eos % (Auto) 0.1 (0.0-4.0) % Baso % (Auto) 0.2 (0.0-2.0) % Neut # (Auto) 11.4 H (1.8-7.0) K/uL Lymph # (Auto) 1.4 (1.0-4.3) K/uL [place] # (Auto) 0.8 (0.0-0.8) K/uL Eos # (Auto) 0.0 (0.0-0.7) K/uL Baso # (Auto) 0.0 (0.0-0.2) K/uL Neutrophils % (Manual) (50-75) % Lymphocytes % (Manual) (20-40) % Monocytes % (Manual) (0-10) % Platelet Estimate (NORMAL) Hypochromasia (manual) Poikilocytosis (manual Anisocytosis (manual) Target Cells Sodium (132-148) mmol/L Potassium (3.6-5.2) mmol/L Chloride (98-107) mmol/L Carbon Dioxide (22-30) mmol/L Anion Gap (10-20) BUN (7-17) mg/dL Creatinine (0.7-1.2) mg/dL Est GFR ( Amer) Est GFR (Non-Af Amer) POC Glucose (mg/dL) 367 H 254 H (65-110) mg/dL Random Glucose (65-105) mg/dL Calcium (8.6-10.4) mg/dl Phosphorus (2.5-4.5) mg/dL Magnesium (1.6-2.3) mg/dL Total Bilirubin (0.2-1.3) mg/dL AST (14-36) U/L ALT (9-52) U/L Alkaline Phosphatase (38-126) U/L Total Creatine Kinase (30-135) U/L CK-MB (Mass) (0.0-3.38) ng/mL Troponin I (0.00-0.120) ng/mL Total Protein (6.3-8.3) g/dL Albumin (3.5-5.0) g/dL Globulin (2.2-3.9) gm/dL Albumin/Globulin Ratio (1.0-2.1) Hepatitis A IgM Ab (NEGATIVE) Hep Bs Antigen (NEGATIVE) Hep B Core IgM Ab (NEGATIVE) Hepatitis C Antibody (NEGATIVE) 10/29/17 10/29/17 10/28/17 Range/Units 06:07 06:07 21:49 WBC 12.6 H (4.8-10.8) K/uL RBC 2.98 L (3.80-5.20) Mil/uL Hgb 8.1 L (11.0-16.0) g/dL Hct 25.0 L (34.0-47.0) % MCV 83.9 (81.0-99.0) fL MCH 27.2 (27.0-31.0) pg MCHC 32.5 L (33.0-37.0) g/dL RDW 15.1 H (11.5-14.5) % Plt Count 237 (130-400) K/uL MPV 8.7 (7.2-11.7) fL Neut % (Auto) 84.3 H (50.0-75.0) % Lymph % (Auto) 7.3 L (20.0-40.0) % [place] % (Auto) 8.2 (0.0-10.0) % Eos % (Auto) 0.0 (0.0-4.0) % Baso % (Auto) 0.2 (0.0-2.0) % Neut # (Auto) 10.6 H (1.8-7.0) K/uL Lymph # (Auto) 0.9 L (1.0-4.3) K/uL [place] # (Auto) 1.0 H (0.0-0.8) K/uL Eos # (Auto) 0.0 (0.0-0.7) K/uL Baso # (Auto) 0.0 (0.0-0.2) K/uL Neutrophils % (Manual) 87 H (50-75) % Lymphocytes % (Manual) 8 L (20-40) % Monocytes % (Manual) 5 (0-10) % Platelet Estimate Normal (NORMAL) Hypochromasia (manual) Slight Poikilocytosis (manual Slight Anisocytosis (manual) Slight Target Cells Slight Sodium 130 L (132-148) mmol/L Potassium 4.9 (3.6-5.2) mmol/L Chloride 100 (98-107) mmol/L Carbon Dioxide 18 L (22-30) mmol/L Anion Gap 17 (10-20) BUN 32 H (7-17) mg/dL Creatinine 1.3 H (0.7-1.2) mg/dL Est GFR ( Amer) 47 Est GFR (Non-Af Amer) 39 POC Glucose (mg/dL) (65-110) mg/dL Random Glucose 217 H (65-105) mg/dL Calcium 8.5 L (8.6-10.4) mg/dl Phosphorus 4.0 (2.5-4.5) mg/dL Magnesium 1.9 (1.6-2.3) mg/dL Total Bilirubin 0.8 (0.2-1.3) mg/dL AST 80 H D (14-36) U/L ALT 141 H D (9-52) U/L Alkaline Phosphatase 334 H D (38-126) U/L Total Creatine Kinase (30-135) U/L CK-MB (Mass) (0.0-3.38) ng/mL Troponin I (0.00-0.120) ng/mL Total Protein 5.8 L (6.3-8.3) g/dL Albumin 2.9 L (3.5-5.0) g/dL Globulin 2.8 (2.2-3.9) gm/dL Albumin/Globulin Ratio 1.0 (1.0-2.1) Hepatitis A IgM Ab Negative (NEGATIVE) Hep Bs Antigen Negative (NEGATIVE) Hep B Core IgM Ab Negative (NEGATIVE) Hepatitis C Antibody Negative (NEGATIVE) 10/28/17 10/28/17 10/28/17 Range/Units 21:06 16:06 12:38 WBC (4.8-10.8) K/uL RBC (3.80-5.20) Mil/uL Hgb (11.0-16.0) g/dL Hct (34.0-47.0) % MCV (81.0-99.0) fL MCH (27.0-31.0) pg MCHC (33.0-37.0) g/dL RDW (11.5-14.5) % Plt Count (130-400) K/uL MPV (7.2-11.7) fL Neut % (Auto) (50.0-75.0) % Lymph % (Auto) (20.0-40.0) % [place] % (Auto) (0.0-10.0) % Eos % (Auto) (0.0-4.0) % Baso % (Auto) (0.0-2.0) % Neut # (Auto) (1.8-7.0) K/uL Lymph # (Auto) (1.0-4.3) K/uL [place] # (Auto) (0.0-0.8) K/uL Eos # (Auto) (0.0-0.7) K/uL Baso # (Auto) (0.0-0.2) K/uL Neutrophils % (Manual) (50-75) % Lymphocytes % (Manual) (20-40) % Monocytes % (Manual) (0-10) % Platelet Estimate (NORMAL) Hypochromasia (manual) Poikilocytosis (manual Anisocytosis (manual) Target Cells Sodium (132-148) mmol/L Potassium (3.6-5.2) mmol/L Chloride (98-107) mmol/L Carbon Dioxide (22-30) mmol/L Anion Gap (10-20) BUN (7-17) mg/dL Creatinine (0.7-1.2) mg/dL Est GFR ( Amer) Est GFR (Non-Af Amer) POC Glucose (mg/dL) 240 H 412 H* 468 H* (65-110) mg/dL Random Glucose (65-105) mg/dL Calcium (8.6-10.4) mg/dl Phosphorus (2.5-4.5) mg/dL Magnesium (1.6-2.3) mg/dL Total Bilirubin (0.2-1.3) mg/dL AST (14-36) U/L ALT (9-52) U/L Alkaline Phosphatase (38-126) U/L Total Creatine Kinase (30-135) U/L CK-MB (Mass) (0.0-3.38) ng/mL Troponin I (0.00-0.120) ng/mL Total Protein (6.3-8.3) g/dL Albumin (3.5-5.0) g/dL Globulin (2.2-3.9) gm/dL Albumin/Globulin Ratio (1.0-2.1) Hepatitis A IgM Ab (NEGATIVE) Hep Bs Antigen (NEGATIVE) Hep B Core IgM Ab (NEGATIVE) Hepatitis C Antibody (NEGATIVE) 10/28/17 10/27/17 10/27/17 Range/Units 11:24 23:01 20:13 WBC (4.8-10.8) K/uL RBC (3.80-5.20) Mil/uL Hgb (11.0-16.0) g/dL Hct (34.0-47.0) % MCV (81.0-99.0) fL MCH (27.0-31.0) pg MCHC (33.0-37.0) g/dL RDW (11.5-14.5) % Plt Count (130-400) K/uL MPV (7.2-11.7) fL Neut % (Auto) (50.0-75.0) % Lymph % (Auto) (20.0-40.0) % [place] % (Auto) (0.0-10.0) % Eos % (Auto) (0.0-4.0) % Baso % (Auto) (0.0-2.0) % Neut # (Auto) (1.8-7.0) K/uL Lymph # (Auto) (1.0-4.3) K/uL [place] # (Auto) (0.0-0.8) K/uL Eos # (Auto) (0.0-0.7) K/uL Baso # (Auto) (0.0-0.2) K/uL Neutrophils % (Manual) (50-75) % Lymphocytes % (Manual) (20-40) % Monocytes % (Manual) (0-10) % Platelet Estimate (NORMAL) Hypochromasia (manual) Poikilocytosis (manual Anisocytosis (manual) Target Cells Sodium 130 L (132-148) mmol/L Potassium 4.3 (3.6-5.2) mmol/L Chloride 98 (98-107) mmol/L Carbon Dioxide 18 L (22-30) mmol/L Anion Gap 18 (10-20) BUN 31 H (7-17) mg/dL Creatinine 1.3 H (0.7-1.2) mg/dL Est GFR ( Amer) 47 Est GFR (Non-Af Amer) 39 POC Glucose (mg/dL) 286 H 248 H (65-110) mg/dL Random Glucose 388 H (65-105) mg/dL Calcium 8.8 (8.6-10.4) mg/dl Phosphorus 4.5 (2.5-4.5) mg/dL Magnesium 1.8 (1.6-2.3) mg/dL Total Bilirubin 0.6 (0.2-1.3) mg/dL AST 123 H D (14-36) U/L ALT 225 H D (9-52) U/L Alkaline Phosphatase 494 H (38-126) U/L Total Creatine Kinase 77 (30-135) U/L CK-MB (Mass) 3.17 (0.0-3.38) ng/mL Troponin I 0.0240 (0.00-0.120) ng/mL Total Protein 6.0 L (6.3-8.3) g/dL Albumin 3.4 L (3.5-5.0) g/dL Globulin 2.6 (2.2-3.9) gm/dL Albumin/Globulin Ratio 1.3 (1.0-2.1) Hepatitis A IgM Ab (NEGATIVE) Hep Bs Antigen (NEGATIVE) Hep B Core IgM Ab (NEGATIVE) Hepatitis C Antibody (NEGATIVE) Laboratory Results - last 24 hr 10/27/17 10/27/17 10/28/17 20:13 23:01 11:24 WBC RBC Hgb Hct MCV MCH MCHC RDW Plt Count MPV Neut % (Auto) Lymph % (Auto) [place] % (Auto) Eos % (Auto) Baso % (Auto) Neut # (Auto) Lymph # (Auto) [place] # (Auto) Eos # (Auto) Baso # (Auto) Neutrophils % (Manual) Lymphocytes % (Manual) Monocytes % (Manual) Platelet Estimate Hypochromasia (manual) Poikilocytosis (manual Anisocytosis (manual) Target Cells Sodium 130 L Potassium 4.3 Chloride 98 Carbon Dioxide 18 L Anion Gap 18 BUN 31 H Creatinine 1.3 H Est GFR ( Amer) 47 Est GFR (Non-Af Amer) 39 POC Glucose (mg/dL) 248 H 286 H Random Glucose 388 H Calcium 8.8 Phosphorus 4.5 Magnesium 1.8 Total Bilirubin 0.6 AST 123 H D ALT 225 H D Alkaline Phosphatase 494 H Total Creatine Kinase 77 CK-MB (Mass) 3.17 Troponin I 0.0240 Total Protein 6.0 L Albumin 3.4 L Globulin 2.6 Albumin/Globulin Ratio 1.3 Hepatitis A IgM Ab Hep Bs Antigen Hep B Core IgM Ab Hepatitis C Antibody 10/28/17 10/28/17 10/28/17 12:38 16:06 21:06 WBC RBC Hgb Hct MCV MCH MCHC RDW Plt Count MPV Neut % (Auto) Lymph % (Auto) [place] % (Auto) Eos % (Auto) Baso % (Auto) Neut # (Auto) Lymph # (Auto) [place] # (Auto) Eos # (Auto) Baso # (Auto) Neutrophils % (Manual) Lymphocytes % (Manual) Monocytes % (Manual) Platelet Estimate Hypochromasia (manual) Poikilocytosis (manual Anisocytosis (manual) Target Cells Sodium Potassium Chloride Carbon Dioxide Anion Gap BUN Creatinine Est GFR ( Amer) Est GFR (Non-Af Amer) POC Glucose (mg/dL) 468 H* 412 H* 240 H Random Glucose Calcium Phosphorus Magnesium Total Bilirubin AST ALT Alkaline Phosphatase Total Creatine Kinase CK-MB (Mass) Troponin I Total Protein Albumin Globulin Albumin/Globulin Ratio Hepatitis A IgM Ab Hep Bs Antigen Hep B Core IgM Ab Hepatitis C Antibody 10/28/17 10/29/17 10/29/17 21:49 06:07 06:07 WBC 12.6 H RBC 2.98 L Hgb 8.1 L Hct 25.0 L MCV 83.9 MCH 27.2 MCHC 32.5 L RDW 15.1 H Plt Count 237 MPV 8.7 Neut % (Auto) 84.3 H Lymph % (Auto) 7.3 L [place] % (Auto) 8.2 Eos % (Auto) 0.0 Baso % (Auto) 0.2 Neut # (Auto) 10.6 H Lymph # (Auto) 0.9 L [place] # (Auto) 1.0 H Eos # (Auto) 0.0 Baso # (Auto) 0.0 Neutrophils % (Manual) 87 H Lymphocytes % (Manual) 8 L Monocytes % (Manual) 5 Platelet Estimate Normal Hypochromasia (manual) Slight Poikilocytosis (manual Slight Anisocytosis (manual) Slight Target Cells Slight Sodium 130 L Potassium 4.9 Chloride 100 Carbon Dioxide 18 L Anion Gap 17 BUN 32 H Creatinine 1.3 H Est GFR ( Amer) 47 Est GFR (Non-Af Amer) 39 POC Glucose (mg/dL) Random Glucose 217 H Calcium 8.5 L Phosphorus 4.0 Magnesium 1.9 Total Bilirubin 0.8 AST 80 H D ALT 141 H D Alkaline Phosphatase 334 H D Total Creatine Kinase CK-MB (Mass) Troponin I Total Protein 5.8 L Albumin 2.9 L Globulin 2.8 Albumin/Globulin Ratio 1.0 Hepatitis A IgM Ab Negative Hep Bs Antigen Negative Hep B Core IgM Ab Negative Hepatitis C Antibody Negative 10/29/17 10/29/17 10/29/17 06:07 07:25 11:30 WBC 13.7 H RBC 2.75 L Hgb 7.8 L Hct 23.1 L MCV 84.0 MCH 28.4 MCHC 33.8 RDW 15.0 H Plt Count 227 MPV 9.3 Neut % (Auto) 83.4 H Lymph % (Auto) 10.4 L [place] % (Auto) 5.9 Eos % (Auto) 0.1 Baso % (Auto) 0.2 Neut # (Auto) 11.4 H Lymph # (Auto) 1.4 [place] # (Auto) 0.8 Eos # (Auto) 0.0 Baso # (Auto) 0.0 Neutrophils % (Manual) Lymphocytes % (Manual) Monocytes % (Manual) Platelet Estimate Hypochromasia (manual) Poikilocytosis (manual Anisocytosis (manual) Target Cells Sodium Potassium Chloride Carbon Dioxide Anion Gap BUN Creatinine Est GFR ( Amer) Est GFR (Non-Af Amer) POC Glucose (mg/dL) 254 H 367 H Random Glucose Calcium Phosphorus Magnesium Total Bilirubin AST ALT Alkaline Phosphatase Total Creatine Kinase CK-MB (Mass) Troponin I Total Protein Albumin Globulin Albumin/Globulin Ratio Hepatitis A IgM Ab Hep Bs Antigen Hep B Core IgM Ab Hepatitis C Antibody Fingerstick Blood Sugar Results: 367 Critical Care Progress Note - Nutrition Nutrition: Nutrition Category Date Time Status Liquid Diet [DIET] Diets 10/28/17 Lunch Active Assessment/Plan - Assessment and Plan (Free Text) Plan: Patient is an 87 year old Welsh-speaking female with PMHx of HTN, DM, CVA ( 2013), anxiety, arthritis, who was admitted to the ICU for GI bleed. Bloody bowl movements improving. Will observe and continue to hold plavix. No GI intervention required at this time. Patient started on liquid diet, tolerated well. NG tube dc'ed due to no output. Protonix drip dc'ed. Neuro: - patient alert and oriented - continue to monitor Cardiovascular: - Systolic ejection murmur heard; suspected aortic stenosis. Echocardiogram ordered. - Echo 10/27/17: LVH, LVEF 65% - BP controlled. Hydralazine 10mg IVP q4h PRN. Maintain SBP < 150 - Troponin negative x3 Respiratory: - maintain SpO2 > 95% - CXR (10/27/17): No active disease. (see full report) Gastrointestinal: - LFT 10/28: downtrending, hepatitis panel negative - abdominal ultrasound (10/28/17): pending - GI Dr. Chavez consulted for GI bleed H/H stable, continue to monitor and transfuse as necessary; Obtain viral hepatitis panel; Obtain abdominal US; Continue to monitor LFTs; Plavix currently held, will continue with supportive care and observation. Patient may benefit from endoscopic evaluation if bleeding persists or can be performed electively as outpatient if symptoms resolve. Will continue to monitor patient clinical course. - D/C'ed NG tube due to no bloody output since admission. - CT abdomen and pelvis 10/27/17: Possible gallstones. No definite CT evidence of acute cholecystitis or biliary tract obstruction. - If patient continues to remain stable - Colonoscopy as outpatient Hematology - H/H 7.8 - continue to monitor -transfuse as necessary when hemoglobin <7 Renal: - NaCl 0.45% @ 45cc/hr - BUN/Cr: 31/1.3 Infectious disease - Afebrile; 98.1 F - WBC 9.7 (normal) - Flagyl 500mg IVPB q8h Endocrine: - Insulin sliding scale (changed from medium to high due to hyperglycemia) - continue to monitor Prophylaxis: - contraindication for VTE therapy: active GI bleed - SCDs ordered Dispo: DOWNGRADED TO TELE. - If patient continues to remain stable - Colonoscopy as outpatient. Continue to hold ASA, Plavix - pending GI and cardio reccs when to resume antiplatelet therapy. JOSE Boone, Sylvia Horowitz DO, PGY-2
--- NOTE | 2017-10-29 13:19 | US ---
Abdominal ultrasound History: Abnormal liver enzymes. Comparison: None available. Technique: Real-time sonography was performed through the abdomen. Findings: Liver: 13.5 centimeters in length. Increased echogenicity of the hepatic parenchymal cortex suggestive for fatty infiltration versus hepatic parenchymal disease. Gallbladder: Cholelithiasis. Normal wall thickness of 1.6 millimeters. No gross wall edema. Negative sonographic Quintero's sign. Common bile duct measures 4.2 millimeters, within normal limits. Pancreas not well visualized. Spleen measures 9.5 centimeters in length, within normal limits. Visualized aorta and IVC are preserved. Right kidney: 9.9 x 4.7 x 4.6 centimeters. No calculi or hydronephrosis. Left kidney: 9.7 x 4.4 x 4.3 centimeters. No calculi or hydronephrosis. Impression: 1. Increased echogenicity of the hepatic parenchymal cortex suggestive for fatty infiltration versus hepatic parenchymal disease. Clinical correlation. 2. Cholelithiasis. Normal gallbladder wall thickness of 1.6 millimeters. Negative sonographic Quintero's sign. 3. Limited visualization of the pancreas.
--- NOTE | 2017-10-29 19:59 | CP.PCM.PN ---
Subjective - Date & Time of Evaluation Date of Evaluation: 10/29/17 Time of Evaluation: 11:45 - Subjective Subjective: clinically same Objective - Vital Signs/Intake and Output Vital Signs (last 24 hours): Temp Pulse Resp BP Pulse Ox 98 F 93 H 23 126/41 L 100 10/29/17 04:00 10/28/17 22:00 10/28/17 22:00 10/28/17 21:59 10/28/17 21:59 Intake and Output: 10/29/17 10/30/17 18:59 06:59 Intake Total 550 Output Total 600 Balance -50 - Medications Medications: Current Medications Alprazolam (Xanax) 0.5 mg PO DAILY PRN PRN Reason: Anxiety Hydralazine HCl (Apresoline) 10 mg IVP Q4H PRN PRN Reason: Systolic Blood Pressure Last Admin: 10/28/17 21:01 Dose: 10 mg Metronidazole (Flagyl) 500 mg in 100 mls @ 100 mls/hr IVPB Q8H CATHERINE PRN Reason: Protocol Last Admin: 10/29/17 11:57 Dose: 100 mls/hr Sodium Chloride (Sodium Chloride 0.45%) 1,000 mls @ 45 mls/hr IV .[id number] [facility] Last Admin: 10/29/17 11:55 Dose: 45 mls/hr Insulin Aspart (Novolog) 0 unit SC ACHS CATHERINE PRN Reason: Protocol Last Admin: 10/29/17 17:14 Dose: 4 units Ondansetron HCl (Zofran Tab) 4 mg PO Q8 PRN PRN Reason: Nausea/Vomiting Pantoprazole Sodium (Protonix Inj) 40 mg IVP DAILY [facility] Last Admin: 10/29/17 11:57 Dose: 40 mg - Labs Labs: 10/29/17 06:07 10/29/17 06:07 PT 11.4 SECONDS (9.7-12.2) 10/27/17 19:10 INR 1.0 10/27/17 19:10 APTT 33 SECONDS (21-34) 10/27/17 19:10 - Constitutional Appears: Well - Head Exam Head Exam: ATRAUMATIC, NORMAL INSPECTION, NORMOCEPHALIC - Eye Exam Eye Exam: EOMI, Normal appearance, PERRL Pupil Exam: NORMAL ACCOMODATION, PERRL - ENT Exam ENT Exam: Mucous Membranes Moist, Normal Exam - Neck Exam Neck Exam: Full ROM, Normal Inspection. absent: Lymphadenopathy - Respiratory Exam Respiratory Exam: Decreased Breath Sounds - Cardiovascular Exam Cardiovascular Exam: REGULAR RHYTHM, +S1, +S2 - GI/Abdominal Exam GI & Abdominal Exam: Soft, Diminished Bowel Sounds - Rectal Exam Rectal Exam: Deferred
[2017-10-30] MEDS: Sodium Chloride 0.45% 1,000 ML IV SCH (05:46)
[2017-10-30] MEDS: metroNIDAZOLE IV 500 mg/100 ml 500 MG/100 ML BAG IVPB SCH ×2 (05:46→12:29)
--- NOTE | 2017-10-30 06:39 | CP.PCM.PN ---
<Azael Hays - Last Filed: 10/30/17 10:22> Subjective - Date & Time of Evaluation Date of Evaluation: 10/30/17 Time of Evaluation: 06:50 - Subjective Subjective: PGY-4 GI Fellow Prog Note Pt lying in bed when seen this AM. Denies any further signs of bleeding per rectum. Denied n/v, abd pain. 5 point ROS negative other than stated above Objective - Vital Signs/Intake and Output Vital Signs (last 24 hours): Temp Pulse Resp BP Pulse Ox 97.5 F L 72 18 105/48 L 97 10/29/17 23:20 10/30/17 00:00 10/29/17 23:20 10/29/17 23:20 10/29/17 23:20 Intake and Output: 10/29/17 10/30/17 18:59 06:59 Intake Total 550 145 Output Total 600 300 Balance -50 -155 - Medications Medications: Current Medications Alprazolam (Xanax) 0.5 mg PO DAILY PRN PRN Reason: Anxiety Last Admin: 10/29/17 20:41 Dose: 0.5 mg Hydralazine HCl (Apresoline) 10 mg IVP Q4H PRN PRN Reason: Systolic Blood Pressure Last Admin: 10/29/17 21:31 Dose: 10 mg Metronidazole (Flagyl) 500 mg in 100 mls @ 100 mls/hr IVPB Q8H [facility] PRN Reason: Protocol Last Admin: 10/30/17 05:46 Dose: 100 mls/hr Sodium Chloride (Sodium Chloride 0.45%) 1,000 mls @ 45 mls/hr IV .[id number] [facility] Last Admin: 10/30/17 05:46 Dose: 45 mls/hr Insulin Aspart (Novolog) 0 unit SC ACHS [facility] PRN Reason: Protocol Last Admin: 10/29/17 21:21 Dose: Not Given Ondansetron HCl (Zofran Tab) 4 mg PO Q8 PRN PRN Reason: Nausea/Vomiting Pantoprazole Sodium (Protonix Inj) 40 mg IVP DAILY [facility] Last Admin: 10/29/17 11:57 Dose: 40 mg - Labs Labs: 10/29/17 06:07 10/29/17 06:07 PT 11.4 SECONDS (9.7-12.2) 10/27/17 19:10 INR 1.0 10/27/17 19:10 APTT 33 SECONDS (21-34) 10/27/17 19:10 - Constitutional Appears: Well, No Acute Distress - Head Exam Head Exam: ATRAUMATIC, NORMAL INSPECTION - Eye Exam Eye Exam: EOMI. absent: Conjunctival injection, Scleral icterus - Respiratory Exam Respiratory Exam: NORMAL BREATHING PATTERN. absent: Respiratory Distress - GI/Abdominal Exam GI & Abdominal Exam: Soft, Normal Bowel Sounds. absent: Distended, Firm, Guarding, Rigid, Tenderness Assessment and Plan - Assessment and Plan (Free Text) Assessment: 87 yo Hisp Female with CVA, DM presenting with bright red blood per rectum. # Hematochezia: Suspect related to Lower GI Bleed, perhaps diverticular or AVM related given h/o , especially since painless. Though BUN mildly elevated there are no other signs/symptoms to suggest brisk upper bleed. Hgb 8.9 from 12 in 2013 on admission. Had NG placed but there was reportedly no output from it, subsequently removed. Reportedly had CSPY about 10 years ago that was normal per family report. Hgb stable/improved. # Transamnitis: Improving. Unclear etiology. AST 223, ALT 290 and AP 559, Bili 0.6 on admission. Possible stone in duct in L lobe of liver per prelim read. No abd pain at this time. Underlying auto-immune given AP increase w/o sig Bili increase? RUQ with Fatty liver vs parenchymal disease; cholelithiasis. # H/o : No previous reports on file. Repeat Echo with and pEF. Family deny h/o CAD and CHF # H/o CVA: On clopidogrel, held with last dose 10/27 Plan: - Cont to hold clopidogrel one more day - Avoid NSAIDs as had ASA day prior to onset of symptoms and could have triggered bleed - Clear liquid diet advanced today - RADHA w/reflex, AMA and Anti-SM pending, can f/u as OP Pt seen and examined with Dr. Martinez <Macho Martinez - Last Filed: 10/30/17 12:21> Objective - Vital Signs/Intake and Output Vital Signs (last 24 hours): Temp Pulse Resp BP Pulse Ox 98 F 82 20 103/55 L 98 10/30/17 07:00 10/30/17 07:06 10/30/17 07:00 10/30/17 07:00 10/30/17 07:00 Intake and Output: 10/30/17 10/30/17 06:59 18:59 Intake Total 145 Output Total 300 Balance -155 - Medications Medications: Current Medications Alprazolam (Xanax) 0.5 mg PO DAILY PRN PRN Reason: Anxiety Last Admin: 10/29/17 20:41 Dose: 0.5 mg Hydralazine HCl (Apresoline) 10 mg IVP Q4H PRN PRN Reason: Systolic Blood Pressure Last Admin: 10/29/17 21:31 Dose: 10 mg Metronidazole (Flagyl) 500 mg in 100 mls @ 100 mls/hr IVPB Q8H [facility] PRN Reason: Protocol Last Admin: 10/30/17 05:46 Dose: 100 mls/hr Sodium Chloride (Sodium Chloride 0.45%) 1,000 mls @ 45 mls/hr IV .[id number] [facility] Last Admin: 10/30/17 05:46 Dose: 45 mls/hr Insulin Aspart (Novolog) 0 unit SC ACHS [facility] PRN Reason: Protocol Last Admin: 10/30/17 08:41 Dose: 4 units Ondansetron HCl (Zofran Tab) 4 mg PO Q8 PRN PRN Reason: Nausea/Vomiting Last Admin: 10/30/17 08:46 Dose: 4 mg Pantoprazole Sodium (Protonix Inj) 40 mg IVP DAILY [facility] Last Admin: 10/30/17 09:49 Dose: 40 mg - Labs Labs: 10/30/17 08:02 10/30/17 08:02 PT 11.4 SECONDS (9.7-12.2) 10/27/17 19:10 INR 1.0 10/27/17 19:10 APTT 33 SECONDS (21-34) 10/27/17 19:10 Attending/Attestation - Attestation I have personally seen and examined this patient.: Yes I have fully participated in the care of the patient.: Yes I have reviewed all pertinent clinical information, including history, physical exam and plan: Yes Notes (Text): 10/30/17 12:18 I have seen and examined patient with GI fellow. No acute events overnight, she had a normal formed small volume brown bowel movement this morning. She denies abdominal pain, nausea, vomiting, fever/chills. Tolerating PO liquids without difficulty. DM CVA on plavix (held) Obesity Rectal bleeding - resolved - Advance diet as tolerated - H/H stable, continue to monitor - LFTs stable, continue to monitor. Awaiting results of autoimmune panel. - Patient remains hemodynamically stable after 72 hours without recurrent bleeding noted. From GI standpoint ok to discharge home with subsequent outpatient follow up. Will arrange for office visit and outpatient colonoscopy within the next 2 weeks. Will sign off case, please reconsult as necessary, thank you.
[2017-10-30 08:17] LABS: BASO % 0.5 % (0.0-2.0); EOS # 0.2 K/uL (0.0-0.7); EOS % 2.6 % (0.0-4.0); HEMOGLOBIN 8.2 g/dL (11.0-16.0); LYMPH # 1.7 K/uL (1.0-4.3); LYMPH % 17.7 % (20.0-40.0); MEAN CORPUSCULAR HEMOGLOBIN 28.3 pg (27.0-31.0); MEAN CORPUSCULAR HGB CONC 33.7 g/dL (33.0-37.0); MEAN PLATELET VOLUME 9.2 fL (7.2-11.7); MONO # 0.6 K/uL (0.0-0.8); MONO % 6.8 % (0.0-10.0); NEUT # 6.9 K/uL (1.8-7.0); NEUT % 72.4 % (50.0-75.0); RBC 2.89 Mil/uL (3.80-5.20); RED CELL DISTRIBUTION WIDTH 15.6 % (11.5-14.5); WHITE BLOOD COUNT 9.5 K/uL (4.8-10.8)
[2017-10-30] MEDS: (Novolog) Insulin Aspart, Recombinant 100 u/ml 10 ml vial SC SCH ×3 (08:41→16:56)
[2017-10-30 08:50] LABS: ALB/GLOB RATIO 1.1 (1.0-2.1); ALBUMIN 2.8 g/dL (3.5-5.0); CALCIUM 8.4 mg/dl (8.6-10.4)
[2017-10-30 09:29] VITALS: RESP 20
[2017-10-30 15:27] VITALS: BP 114/52; TEMP 97.4; O2SAT 96
[2017-10-30 16:18] VITALS: PULSE 84
--- NOTE | 2017-10-30 17:58 | CP.PCM.PN ---
Subjective - Date & Time of Evaluation Date of Evaluation: 10/30/17 Time of Evaluation: 10:30 - Subjective Subjective: clinically same Objective - Vital Signs/Intake and Output Vital Signs (last 24 hours): Temp Pulse Resp BP Pulse Ox 97.4 F L 84 20 114/52 L 96 10/30/17 15:24 10/30/17 16:00 10/30/17 15:24 10/30/17 15:24 10/30/17 15:24 Intake and Output: 10/30/17 10/30/17 06:59 18:59 Intake Total 145 Output Total 300 Balance -155 - Medications Medications: Current Medications Alprazolam (Xanax) 0.5 mg PO DAILY PRN PRN Reason: Anxiety Last Admin: 10/29/17 20:41 Dose: 0.5 mg Hydralazine HCl (Apresoline) 10 mg IVP Q4H PRN PRN Reason: Systolic Blood Pressure Last Admin: 10/29/17 21:31 Dose: 10 mg Metronidazole (Flagyl) 500 mg in 100 mls @ 100 mls/hr IVPB Q8H [facility] PRN Reason: Protocol Last Admin: 10/30/17 12:29 Dose: 100 mls/hr Sodium Chloride (Sodium Chloride 0.45%) 1,000 mls @ 45 mls/hr IV .[id number] [facility] Last Admin: 10/30/17 05:46 Dose: 45 mls/hr Insulin Aspart (Novolog) 0 unit SC ACHS [facility] PRN Reason: Protocol Last Admin: 10/30/17 16:56 Dose: 6 units Ondansetron HCl (Zofran Tab) 4 mg PO Q8 PRN PRN Reason: Nausea/Vomiting Last Admin: 10/30/17 08:46 Dose: 4 mg Pantoprazole Sodium (Protonix Inj) 40 mg IVP DAILY [facility] Last Admin: 10/30/17 09:49 Dose: 40 mg - Labs Labs: 10/30/17 08:02 10/30/17 08:02 PT 11.4 SECONDS (9.7-12.2) 10/27/17 19:10 INR 1.0 10/27/17 19:10 APTT 33 SECONDS (21-34) 10/27/17 19:10 - Constitutional Appears: Well - Head Exam Head Exam: ATRAUMATIC, NORMAL INSPECTION, NORMOCEPHALIC - Eye Exam Eye Exam: EOMI, Normal appearance, PERRL Pupil Exam: NORMAL ACCOMODATION, PERRL - ENT Exam ENT Exam: Mucous Membranes Moist, Normal Exam - Neck Exam Neck Exam: Full ROM, Normal Inspection. absent: Lymphadenopathy - Respiratory Exam Respiratory Exam: Decreased Breath Sounds - Cardiovascular Exam Cardiovascular Exam: REGULAR RHYTHM, +S1, +S2 - GI/Abdominal Exam GI & Abdominal Exam: Soft, Diminished Bowel Sounds - Rectal Exam Rectal Exam: Deferred
== END 2017-10-30 18:07 | disposition home or self-care (01) | DRG 379 ==
LOC: C.ER 18:11 → C.9E 20:28 → C.9I 23:21 → C.6T 10-29 21:14
PROVIDERS: ADMIT Internal Medicine Nephrology; ATTEND Internal Medicine Nephrology
DX: K62.5 Hemorrhage of anus and rectum (principal); E11.9 Type 2 diabetes mellitus without complications; E66.9 Obesity, unspecified; Z68.34 Body mass index [BMI] 34.0-34.9, adult; Z86.73 Personal history of transient ischemic attack (TIA), and cerebral infarction without residual deficits; I11.0 Hypertensive heart disease with heart failure; I25.10 Atherosclerotic heart disease of native coronary artery without angina pectoris; I35.0 Nonrheumatic aortic (valve) stenosis; I50.9 Heart failure, unspecified; Z80.9 Family history of malignant neoplasm, unspecified; F41.9 Anxiety disorder, unspecified; Z79.01 Long term (current) use of anticoagulants; R74.0 Nonspecific elevation of levels of transaminase and lactic acid dehydrogenase [LDH]; Z79.4 Long term (current) use of insulin

== ENCOUNTER 2017-12-09 15:21 | Inpatient (IN) | payer MEDICARE ==
[2017-12-09 15:30] VITALS: BMI 33.8
--- NOTE | 2017-12-09 16:07 | C.PDOC ---
History Of Present Illness 87yo female, brought to ER by daughter for evaluation of yellow skin x 2 days. She states the patient was admitted 3-4 weeks ago due to rectal bleed, was treated by Dr. Martinez and was discharged home; per daughter, the bleeding has now resolved. She states for the past 2 days, patient has been complaining of being "tired" and since yesterday, she has increasing yellowing of her skin. Otherwise, no fever, chills, rectal bleeding, nausea, vomiting or chest pain. Patient has no additional medical complaints. Time Seen by Provider: 12/09/17 15:44 Chief Complaint (Nursing): Abnormal Skin Integrity History Per: Patient, Family History/Exam Limitations: no limitations Onset/Duration Of Symptoms: Days Current Symptoms Are (Timing): Still Present Additional History Per: Patient Past Medical History Reviewed: Historical Data, Nursing Documentation, Vital Signs Vital Signs: Last Vital Signs Temp 97.5 F L 12/09/17 15:30 Pulse 66 12/09/17 15:30 Resp 18 12/09/17 15:30 BP 117/68 12/09/17 15:30 Pulse Ox 98 12/09/17 18:07 - Medical History PMH: Anemia (?), Anxiety, Arthritis, Diabetes, HTN, Hypercholesterolemia, TIA Denies: Chronic Kidney Disease Family History: States: No Known Family Hx - Social History Hx Tobacco Use: No Hx Alcohol Use: No Hx Substance Use: No - Immunization History Hx Tetanus Toxoid Vaccination: No Hx Influenza Vaccination: No Hx Pneumococcal Vaccination: No Review Of Systems Except As Marked, All Systems Reviewed And Found Negative. Constitutional: Positive for: Malaise. Negative for: Fever, Chills Cardiovascular: Negative for: Chest Pain Respiratory: Negative for: Shortness of Breath Gastrointestinal: Negative for: Melena, Hematochezia Skin: Positive for: Jaundice Neurological: Negative for: Weakness, Numbness Physical Exam - Physical Exam Appears: Non-toxic Skin: Warm, Dry, Jaundice Head: Atraumatic, Normacephalic Eye(s): bilateral: PERRL, EOMI, Scleral Icterus Oral Mucosa: Moist Neck: Normal ROM, Supple Chest: Symmetrical Cardiovascular: Rhythm Regular Respiratory: Normal Breath Sounds Gastrointestinal/Abdominal: Normal Exam, Soft, Tenderness (diffuse), No Mass, No Guarding, No Rebound Back: Normal Inspection Extremity: Normal ROM, No Pedal Edema Neurological/Psych: Oriented x3, Normal Speech, Normal Cognition, Normal Motor, Normal Sensation ED Course And Treatment - Laboratory Results Result Diagrams: 12/09/17 16:21 12/09/17 16:21 ECG: Interpreted By Me, Viewed By Me ECG Rhythm: Sinus Rhythm Interpretation Of ECG: Q wave in lead 3, AVF. Normal intervals. Normal axis. No STT changes Rate From EC O2 Sat by Pulse Oximetry: 98 (RA) Pulse Ox Interpretation: Normal Medical Decision Making Medical Decision Making: Assessment: Jaundice Plan: * Labs * EKG * Urinalysis * US Galbladder * PICC Line (poor vascular access) 16:19 CXR FINDINGS: LUNGS: The lungs are well inflated and clear. PLEURA: No pneumothorax or pleural fluid seen. CARDIOVASCULAR: Normal. OSSEOUS STRUCTURES: No significant abnormalities. VISUALIZED UPPER ABDOMEN: Normal. OTHER FINDINGS: None. IMPRESSION: No active pulmonary disease. 17:40 US Abdomen FINDINGS: LIVER: Measures 15.3 cm in length. Increased echogenicity of the liver parenchyma. No mass. Mild intrahepatic bile duct dilatation. GALLBLADDER: Cholelithiasis with gallbladder wall thickening/edema. Sonographic Quintero's sign was not elicited. COMMON BILE DUCT: Measures 6 mm. No stones. No dilatation. PANCREAS: Not well-visualized due to overlying bowel gas. RIGHT KIDNEY: Measures 9.7 x 4.2 x 5.1 cm in length. Normal echogenicity. No calculus, mass, or hydronephrosis. AORTA: No aneurysmal dilatation. IVC: Unremarkable. OTHER FINDINGS: None . IMPRESSION: Increased hepatic echogenicity compatible with fatty infiltration versus hepatic parenchymal disease. Stable mild intrahepatic ductal dilatation. Redemonstration of cholelithiasis gallbladder wall thickening. Sonographic Quintero's sign was not elicited. Gallbladder wall thickening is a nonspecific finding which can be seen with ascites, hepatitis, cholecystitis, CHF or hypoproteinemic states. Clinical correlation is recommended. If clinical concern for gallbladder pathology exists, a HIDA scan may be performed. Disposition Discussed With : Linda Contreras Doctor Will See Patient In The: Hospital Counseled Patient/Family Regarding: Studies Performed, Diagnosis - Disposition Disposition: HOSPITALIZED Disposition Time: 18:06 Condition: FAIR Forms: [employer] (Upper Sorbian) - Clinical Impression Clinical Impression: Gallstones, Acute kidney injury, Jaundice - Scribe Statement The provider has reviewed the documentation as recorded by the Saji Chang Provider Attestation: All medical record entries made by the Saji were at my direction and personally dictated by me. I have reviewed the chart and agree that the record accurately reflects my personal performance of the history, physical exam, medical decision making, and the department course for this patient. I have also personally directed, reviewed, and agree with the discharge instructions and disposition.
[2017-12-09 16:25] LABS: BASO # 0.1 K/uL (0.0-0.2); HEMOGLOBIN 9.5 g/dL (11.0-16.0); MONO # 0.4 K/uL (0.0-0.8)
[2017-12-09 16:30] LABS: BASO % 0.6 % (0.0-2.0); EOS % 0.2 % (0.0-4.0); LYMPH # 1.1 K/uL (1.0-4.3); LYMPH % 9.5 % (20.0-40.0); MEAN CORPUSCULAR HEMOGLOBIN 27.5 pg (27.0-31.0); MEAN CORPUSCULAR HGB CONC 31.5 g/dL (33.0-37.0); MEAN PLATELET VOLUME 9.7 fL (7.2-11.7); MONO % 3.5 % (0.0-10.0); NEUT # 9.8 K/uL (1.8-7.0); NEUT % 86.2 % (50.0-75.0); PLATELET COUNT 279 K/uL (130-400); RBC 3.47 Mil/uL (3.80-5.20); RED CELL DISTRIBUTION WIDTH 17.3 % (11.5-14.5); WHITE BLOOD COUNT 11.4 K/uL (4.8-10.8)
[2017-12-09 16:34] LABS: INR 1.3
--- NOTE | 2017-12-09 16:38 | RAD ---
Date of service: 12/09/2017 PROCEDURE: CHEST RADIOGRAPH, 1 VIEW HISTORY: Abdominal pain COMPARISON: 07/08/2017. FINDINGS: LUNGS: The lungs are well inflated and clear. PLEURA: No pneumothorax or pleural fluid seen. CARDIOVASCULAR: Normal. OSSEOUS STRUCTURES: No significant abnormalities. VISUALIZED UPPER ABDOMEN: Normal. OTHER FINDINGS: None. IMPRESSION: No active pulmonary disease.
[2017-12-09 16:44] LABS: MEAN CELL VOLUME 87.2 fL (81.0-99.0)
[2017-12-09 17:09] LABS: ALB/GLOB RATIO 0.9 (1.0-2.1); ALBUMIN 3.3 g/dL (3.5-5.0); CALCIUM 8.9 mg/dl (8.6-10.4)
[2017-12-09 17:23] LABS: EOSINOPHIL 2 % (0-4); MONOCYTE 3 % (0-10); TOTAL CELLS COUNTED 100
[2017-12-09 17:24] LABS: LYMPHOCYTE 7 % (20-40); NEUTROPHIL 88 % (50-75); PLATELET ESTIMATE NORMAL (NORMAL)
[2017-12-09 17:25] LABS: ANISOCYTOSIS SLIGHT; HYPOCHROMIC SLIGHT; LARGE PLATELETS PRESENT; POIKILOCYTOSIS SLIGHT; TARGET CELLS SLIGHT
[2017-12-09 17:26] LABS: MICROCYTOSIS SLIGHT
--- NOTE | 2017-12-09 17:41 | US ---
Date of service: 12/09/2017 HISTORY: jaundice COMPARISON: Abdominal ultrasound dated 10/28/2017. TECHNIQUE: Sonographic evaluation of the right upper quadrant of the abdomen. FINDINGS: LIVER: Measures 15.3 cm in length. Increased echogenicity of the liver parenchyma. No mass. Mild intrahepatic bile duct dilatation. GALLBLADDER: Cholelithiasis with gallbladder wall thickening/edema. Sonographic Quintero's sign was not elicited. COMMON BILE DUCT: Measures 6 mm. No stones. No dilatation. PANCREAS: Not well-visualized due to overlying bowel gas. RIGHT KIDNEY: Measures 9.7 x 4.2 x 5.1 cm in length. Normal echogenicity. No calculus, mass, or hydronephrosis. AORTA: No aneurysmal dilatation. IVC: Unremarkable. OTHER FINDINGS: None . IMPRESSION: Increased hepatic echogenicity compatible with fatty infiltration versus hepatic parenchymal disease. Stable mild intrahepatic ductal dilatation. Redemonstration of cholelithiasis gallbladder wall thickening. Sonographic Quintero's sign was not elicited. Gallbladder wall thickening is a nonspecific finding which can be seen with ascites, hepatitis, cholecystitis, CHF or hypoproteinemic states. Clinical correlation is recommended. If clinical concern for gallbladder pathology exists, a HIDA scan may be performed.
[2017-12-09 18:29] LABS: SQUAMOUS EPITHIAL 40 /hpf (0-5); URINE BACTERIA MOD (<OCC); URINE BILIRUBIN NEGATIVE (NEGATIVE); URINE BLOOD 3+ (NEGATIVE); URINE CLARITY Hazy (Clear); URINE GLUCOSE (UA) NORMAL (Normal); URINE LEUKOCYTE ESTERASE 3+ Leu/uL (Negative); URINE PROTEIN 2+ mg/dL (NEGATIVE); URINE UROBILINOGEN NORMAL mg/dL (0.2-1.0); WBC CLUMPS MOD /hpf
[2017-12-09 18:32] LABS: URINE COLOR YELLOW (YELLOW)
--- NOTE | 2017-12-09 22:38 | CP.PCM.HP ---
Past Patient History - Past Medical History & Family History Past Medical History?: Yes - Past Social History Smoking Status: Never Smoked - CARDIAC Hx Hypercholesterolemia: Yes Hx Hypertension: Yes - PULMONARY Hx Respiratory Disorders: No - NEUROLOGICAL Hx Transient Ischemic Attacks (TIA): Yes - HEENT Hx HEENT Problems: No - RENAL Hx Chronic Kidney Disease: No - ENDOCRINE/METABOLIC Hx Endocrine Disorders: Yes Hx Diabetes Mellitus Type 2: Yes - HEMATOLOGICAL/ONCOLOGICAL Hx Anemia: Yes (?) - INTEGUMENTARY Hx Dermatological Problems: No - MUSCULOSKELETAL/RHEUMATOLOGICAL Hx Arthritis: Yes - GASTROINTESTINAL Hx Gastrointestinal Disorders: No - GENITOURINARY/GYNECOLOGICAL Hx Genitourinary Disorders: No - PSYCHIATRIC Hx Anxiety: Yes Hx Substance Use: No - SURGICAL HISTORY Hx Surgeries: No - ANESTHESIA Hx Anesthesia: Yes Hx Anesthesia Reactions: No Meds Allergies/Adverse Reactions: Allergies Allergy/AdvReac Type Severity Reaction Status Date / Time Penicillins Allergy Verified 12/09/17 15:30 flu vaccine Allergy Uncoded 12/09/17 15:30 Physical Exam - Constitutional Appears: Non-toxic - Head Exam Head Exam: ATRAUMATIC - Eye Exam Eye Exam: Normal appearance - Neck Exam Neck exam: Positive for: Normal Inspection - Respiratory Exam Respiratory Exam: Decreased Breath Sounds - Cardiovascular Exam Cardiovascular Exam: +S1, +S2 - GI/Abdominal Exam GI & Abdominal Exam: Diminished Bowel Sounds - Rectal Exam Rectal Exam: Deferred Results - Vital Signs Recent Vital Signs: Last Vital Signs Temp 97.5 F L 12/09/17 21:46 Pulse 84 12/09/17 21:46 Resp 18 12/09/17 21:46 BP 137/84 12/09/17 21:46 Pulse Ox 97 12/09/17 21:46 - Labs Result Diagrams: 12/09/17 16:21 12/09/17 16:21 Labs: Laboratory Results - last 24 hr 12/09/17 12/09/17 12/09/17 16:21 16:21 16:21 WBC 11.4 H RBC 3.47 L Hgb 9.5 L Hct 30.3 L MCV 87.2 D MCH 27.5 MCHC 31.5 L RDW 17.3 H Plt Count 279 MPV 9.7 Neut % (Auto) 86.2 H Lymph % (Auto) 9.5 L [place] % (Auto) 3.5 Eos % (Auto) 0.2 Baso % (Auto) 0.6 Neut # (Auto) 9.8 H Lymph # (Auto) 1.1 [place] # (Auto) 0.4 Eos # (Auto) 0.0 Baso # (Auto) 0.1 Neutrophils % (Manual) 88 H Lymphocytes % (Manual) 7 L Monocytes % (Manual) 3 Eosinophils % (Manual) 2 Platelet Estimate Normal Large Platelets Present Hypochromasia (manual) Slight Poikilocytosis (manual Slight Anisocytosis (manual) Slight Microcytosis (manual) Slight Target Cells Slight PT 14.0 H INR 1.3 APTT 34 Sodium 134 Potassium 4.1 Chloride 99 Carbon Dioxide 17 L Anion Gap 22 H BUN 61 H Creatinine 3.5 H Est GFR ( Amer) 15 Est GFR (Non-Af Amer) 12 POC Glucose (mg/dL) Random Glucose 246 H Calcium 8.9 Total Bilirubin 10.0 H AST 786 H D ALT 414 H D Alkaline Phosphatase 1646 H Total Protein 7.0 Albumin 3.3 L Globulin 3.7 Albumin/Globulin Ratio 0.9 L Lipase 424 H Urine Color Urine Clarity Urine pH Ur Specific [place] Urine Protein Urine Glucose (UA) Urine Ketones Urine Blood Urine Nitrate Urine Bilirubin Urine Urobilinogen Ur Leukocyte Esterase Urine WBC (Auto) Urine RBC (Auto) Urine WBC Clumps (Auto) Ur Squamous Epith Cells Ur Transition Epith Cell Urine Bacteria 12/09/17 12/09/17 18:32 21:48 WBC RBC Hgb Hct MCV MCH MCHC RDW Plt Count MPV Neut % (Auto) Lymph % (Auto) [place] % (Auto) Eos % (Auto) Baso % (Auto) Neut # (Auto) Lymph # (Auto) [place] # (Auto) Eos # (Auto) Baso # (Auto) Neutrophils % (Manual) Lymphocytes % (Manual) Monocytes % (Manual) Eosinophils % (Manual) Platelet Estimate Large Platelets Hypochromasia (manual) Poikilocytosis (manual Anisocytosis (manual) Microcytosis (manual) Target Cells PT INR APTT Sodium Potassium Chloride Carbon Dioxide Anion Gap BUN Creatinine Est GFR ( Amer) Est GFR (Non-Af Amer) POC Glucose (mg/dL) 359 H Random Glucose Calcium Total Bilirubin AST ALT Alkaline Phosphatase Total Protein Albumin Globulin Albumin/Globulin Ratio Lipase Urine Color Yellow Urine Clarity Hazy Urine pH 5.0 Ur Specific [place] 1.011 Urine Protein 2+ H Urine Glucose (UA) Normal Urine Ketones Negative Urine Blood 3+ H Urine Nitrate Negative Urine Bilirubin Negative Urine Urobilinogen Normal Ur Leukocyte Esterase 3+ H Urine WBC (Auto) 240 H Urine RBC (Auto) 11 H Urine WBC Clumps (Auto) Mod H Ur Squamous Epith Cells 40 H Ur Transition Epith Cell 1 Urine Bacteria Mod H
--- NOTE | 2017-12-10 08:04 | CP.PCM.CON ---
<Cherry Nunes - Last Filed: 12/10/17 09:03> History of Present Illness - History of Present Illness History of Present Illness: Gastroenterology Fellow/PGY6 Consult Note 87 year old female with PMH of recent discharge 10/30/17 due to Lower GI bleed with spontaneous resolution, CVA (off Plavix since 10/27/17 2/2 GI bleed), moderate Aortic stenosis, Diabetes, HTN, and HLD presenting with yellowing of skin. History obtained from daughter and patient with interpreter for the deaf services. Patient notes new-onset mid-abdominal pain for the last ten days that patient did not try to use analgesics for relief. Daughter states since discharge 10/30, patient has had no further episodes of rectal bleeding and remains off Plavix, aspirin, and denies NSAIDs use which is confirmed by patient. Patient's daughter noted new complaint of weakness for the last week which led to rescheduled outpatient GI follow up for scheduling of outpatient colonoscopy. Associated loss of appetite and progressive skin/urine yellowing for the last two days. Denies fever, chills, sweats, nausea, vomiting, hematemesis, diarrhea, constipation, melena, hematochezia, unintentional weight, loss, chest pain, shortness of breath, leg swelling, confusion, pruritis, abdominal distension, polyuria, dysuria, hematuria, recent travel, sick contacts, or new medications/herbs/supplements. Admits to daily formed stools. Prior colonoscopy endorsed to be normal ten years ago. No prior EGD. Family History- Mother - unknown abdominal surgery Social History- denies tobacco, alcohol, illicit drug use Surgical History- none Review of Systems - Review of Systems Review of Systems: 12-point review of systems negative except for as above Past Patient History - Past Medical History & Family History Past Medical History?: Yes - Past Social History Smoking Status: Never Smoked - CARDIAC Hx Hypercholesterolemia: Yes Hx Hypertension: Yes - PULMONARY Hx Respiratory Disorders: No - NEUROLOGICAL Hx Transient Ischemic Attacks (TIA): Yes - HEENT Hx HEENT Problems: No - RENAL Hx Chronic Kidney Disease: No - ENDOCRINE/METABOLIC Hx Endocrine Disorders: Yes Hx Diabetes Mellitus Type 2: Yes - HEMATOLOGICAL/ONCOLOGICAL Hx Anemia: Yes (?) - INTEGUMENTARY Hx Dermatological Problems: No - MUSCULOSKELETAL/RHEUMATOLOGICAL Hx Arthritis: Yes - GASTROINTESTINAL Hx Gastrointestinal Disorders: No - GENITOURINARY/GYNECOLOGICAL Hx Genitourinary Disorders: No - PSYCHIATRIC Hx Anxiety: Yes Hx Substance Use: No - SURGICAL HISTORY Hx Surgeries: No - ANESTHESIA Hx Anesthesia: Yes Hx Anesthesia Reactions: No Meds Allergies/Adverse Reactions: Allergies Allergy/AdvReac Type Severity Reaction Status Date / Time Penicillins Allergy Verified 12/09/17 15:30 flu vaccine Allergy Uncoded 12/09/17 15:30 - Medications Medications: Current Medications Enoxaparin Sodium (Lovenox) 40 mg SC DAILY [facility] Home Med (Furosemide) 40 mg PO DAILY [facility] Home Med (Glimepiride) 4 mg PO BID [facility] Home Med (Januvia) 100 mg PO BID [facility] Home Med (Novolog Flexpen) 15 units SQ BID [facility] Home Med (Potassium Chloride 20 Meq) 10 meq PO DAILY [facility] Home Med (Rosuvastatin Calcium) 20 mg PO DAILY [facility] Home Med (Valsartan) 160 mg PO DAILY [facility] Ceftriaxone Sodium 1 gm/ (Sodium Chloride) 100 mls @ 100 mls/hr IVPB DAILY [facility]; Protocol Insulin Aspart (Novolog) 0 unit SC ACHS [facility]; Protocol Metoprolol Succinate (Toprol Xl) 50 mg PO DAILY [facility] Pantoprazole Sodium (Protonix Ec Tab) 40 mg PO DAILY [facility] Physical Exam - Constitutional Appears: Non-toxic, No Acute Distress - Head Exam Head Exam: ATRAUMATIC, NORMOCEPHALIC - Eye Exam Eye Exam: EOMI, PERRL, Scleral icterus Pupil Exam: PERRL. absent: Miosis, Mydriatic - ENT Exam ENT Exam: Mucous Membranes Moist, Normal Oropharynx - Neck Exam Neck exam: Positive for: Full Rom, Normal Inspection - Respiratory Exam Respiratory Exam: Clear to Auscultation Bilateral. absent: Rales, Rhonchi, Wheezes - Cardiovascular Exam Cardiovascular Exam: RRR, +S1, +S2. absent: Gallop, Rubs - GI/Abdominal Exam GI & Abdominal Exam: Normal Bowel Sounds, Soft, Tenderness. absent: Firm, Guarding, Organomegaly, Rebound, Rigid Additional comments: jun-umbilical tenderness to palpation, central obesity - Extremities Exam Extremities exam: Positive for: normal inspection, pedal edema - Neurological Exam Neurological exam: Alert Additional comments: no asterixis - Psychiatric Exam Psychiatric exam: Normal Affect, Normal Mood - Skin Skin Exam: Dry, Intact, Warm Additional comments: jaundice Results - Vital Signs Recent Vital Signs: Last Vital Signs Temp 98.0 F 12/10/17 00:00 Pulse 70 12/10/17 00:00 Resp 20 12/10/17 00:00 BP 144/68 12/10/17 00:00 Pulse Ox 100 12/10/17 00:00 - Labs Result Diagrams: 12/09/17 16:21 12/09/17 16:21 Labs: Laboratory Results - last 24 hr 12/09/17 12/09/17 12/09/17 16:21 16:21 16:21 WBC 11.4 H RBC 3.47 L Hgb 9.5 L Hct 30.3 L MCV 87.2 D MCH 27.5 MCHC 31.5 L RDW 17.3 H Plt Count 279 MPV 9.7 Neut % (Auto) 86.2 H Lymph % (Auto) 9.5 L [place] % (Auto) 3.5 Eos % (Auto) 0.2 Baso % (Auto) 0.6 Neut # (Auto) 9.8 H Lymph # (Auto) 1.1 [place] # (Auto) 0.4 Eos # (Auto) 0.0 Baso # (Auto) 0.1 Neutrophils % (Manual) 88 H Lymphocytes % (Manual) 7 L Monocytes % (Manual) 3 Eosinophils % (Manual) 2 Platelet Estimate Normal Large Platelets Present Hypochromasia (manual) Slight Poikilocytosis (manual Slight Anisocytosis (manual) Slight Microcytosis (manual) Slight Target Cells Slight PT 14.0 H INR 1.3 APTT 34 Sodium 134 Potassium 4.1 Chloride 99 Carbon Dioxide 17 L Anion Gap 22 H BUN 61 H Creatinine 3.5 H Est GFR ( Amer) 15 Est GFR (Non-Af Amer) 12 POC Glucose (mg/dL) Random Glucose 246 H Calcium 8.9 Total Bilirubin 10.0 H AST 786 H D ALT 414 H D Alkaline Phosphatase 1646 H Total Protein 7.0 Albumin 3.3 L Globulin 3.7 Albumin/Globulin Ratio 0.9 L Lipase 424 H Urine Color Urine Clarity Urine pH Ur Specific [place] Urine Protein Urine Glucose (UA) Urine Ketones Urine Blood Urine Nitrate Urine Bilirubin Urine Urobilinogen Ur Leukocyte Esterase Urine WBC (Auto) Urine RBC (Auto) Urine WBC Clumps (Auto) Ur Squamous Epith Cells Ur Transition Epith Cell Urine Bacteria 12/09/17 12/09/17 12/10/17 18:32 21:48 06:31 WBC RBC Hgb Hct MCV MCH MCHC RDW Plt Count MPV Neut % (Auto) Lymph % (Auto) [place] % (Auto) Eos % (Auto) Baso % (Auto) Neut # (Auto) Lymph # (Auto) [place] # (Auto) Eos # (Auto) Baso # (Auto) Neutrophils % (Manual) Lymphocytes % (Manual) Monocytes % (Manual) Eosinophils % (Manual) Platelet Estimate Large Platelets Hypochromasia (manual) Poikilocytosis (manual Anisocytosis (manual) Microcytosis (manual) Target Cells PT INR APTT Sodium Potassium Chloride Carbon Dioxide Anion Gap BUN Creatinine Est GFR ( Amer) Est GFR (Non-Af Amer) POC Glucose (mg/dL) 359 H 310 H Random Glucose Calcium Total Bilirubin AST ALT Alkaline Phosphatase Total Protein Albumin Globulin Albumin/Globulin Ratio Lipase Urine Color Yellow Urine Clarity Hazy Urine pH 5.0 Ur Specific [place] 1.011 Urine Protein 2+ H Urine Glucose (UA) Normal Urine Ketones Negative Urine Blood 3+ H Urine Nitrate Negative Urine Bilirubin Negative Urine Urobilinogen Normal Ur Leukocyte Esterase 3+ H Urine WBC (Auto) 240 H Urine RBC (Auto) 11 H Urine WBC Clumps (Auto) Mod H Ur Squamous Epith Cells 40 H Ur Transition Epith Cell 1 Urine Bacteria Mod H Assessment & Plan - Assessment and Plan (Free Text) Assessment: 87 year old female with PMH of recent discharge 10/30/17 due to Lower GI bleed with spontaneous resolution, CVA (off Plavix since 10/27/17 2/2 GI bleed), moderate Aortic stenosis, Diabetes, HTN, and HLD presenting with yellowing of skin. Active treatment of new-onset hyperbilirubinemia with worsening transminitis compared to 10/2017, [facility], and UTI. Prior colonoscopy endorsed to be normal ten years ago. No prior EGD. Plan: -ordered MRCP abdomen w/o contrast to evaluate for choledocholithiasis and/or other pathology -ordered direct bilirubin, APAP, salicylate, drug screen, ETOH, TSH/T4, Lipid, A 1c, GGT, ASMA, AMA, LKM, CBC, CMP, INR -NPO, await MRCP results -12/09 U/S- cholelithiasis, CBD 6mm -CT 10/27/17- normal hepatic contour, steatosis -10/2017 negative hepatitis panel and RADHA -on ceftriaxone for UTI -renal U/S pending -avoid nephrotoxic medications -H/H stable -supportive care- anti-emetics, pain control -will follow clinical course <Macho Martinez - Last Filed: 12/10/17 15:17> Meds - Medications Medications: Current Medications Enoxaparin Sodium (Lovenox) 30 mg SC DAILY [facility] Last Admin: 12/10/17 14:03 Dose: Not Given Furosemide (Lasix) 40 mg PO DAILY [facility] Glimepiride (Amaryl) 4 mg PO BID [facility] Ceftriaxone Sodium 1 gm/ (Sodium Chloride) 100 mls @ 100 mls/hr IVPB DAILY [facility]; Protocol Insulin Aspart (Novolog) 0 unit SC ACHS [facility]; Protocol Last Admin: 12/10/17 12:55 Dose: Not Given Insulin Aspart (Novolog) 15 unit SC BID [facility] Losartan Potassium (Cozaar) 100 mg PO DAILY [facility] Metoprolol Succinate (Toprol Xl) 50 mg PO DAILY [facility] Ondansetron HCl (Zofran Inj) 4 mg IVP Q4H PRN PRN Reason: Nausea/Vomiting Pantoprazole Sodium (Protonix Ec Tab) 40 mg PO DAILY [facility] Potassium Chloride (Klor-Con 10) 10 meq PO DAILY [facility] Sitagliptin Phosphate (Januvia) 25 mg PO DAILY [facility] Results - Vital Signs Recent Vital Signs: Last Vital Signs Temp 97.5 F L 12/10/17 07:00 Pulse 60 12/10/17 07:00 Resp 20 12/10/17 07:00 BP 155/62 H 12/10/17 07:00 Pulse Ox 100 12/10/17 07:00 - Labs Result Diagrams: 12/10/17 11:15 12/10/17 11:15 Labs: Laboratory Results - last 24 hr 12/09/17 12/09/17 12/09/17 16:21 16:21 16:21 WBC 11.4 H RBC 3.47 L Hgb 9.5 L Hct 30.3 L MCV 87.2 D MCH 27.5 MCHC 31.5 L RDW 17.3 H Plt Count 279 MPV 9.7 Neut % (Auto) 86.2 H Lymph % (Auto) 9.5 L [place] % (Auto) 3.5 Eos % (Auto) 0.2 Baso % (Auto) 0.6 Neut # (Auto) 9.8 H Lymph # (Auto) 1.1 [place] # (Auto) 0.4 Eos # (Auto) 0.0 Baso # (Auto) 0.1 Neutrophils % (Manual) 88 H Lymphocytes % (Manual) 7 L Monocytes % (Manual) 3 Eosinophils % (Manual) 2 Platelet Estimate Normal Large Platelets Present Hypochromasia (manual) Slight Poikilocytosis (manual Slight Anisocytosis (manual) Slight Microcytosis (manual) Slight Target Cells Slight PT 14.0 H INR 1.3 APTT 34 Sodium 134 Potassium 4.1 Chloride 99 Carbon Dioxide 17 L Anion Gap 22 H BUN 61 H Creatinine 3.5 H Est GFR ( Amer) 15 Est GFR (Non-Af Amer) 12 POC Glucose (mg/dL) Random Glucose 246 H Hemoglobin A1c Calcium 8.9 Phosphorus Magnesium Iron TIBC % Saturation Transferrin Ferritin Total Bilirubin 10.0 H Direct Bilirubin GGT AST 786 H D ALT 414 H D Alkaline Phosphatase 1646 H Total Protein 7.0 Albumin 3.3 L Globulin 3.7 Albumin/Globulin Ratio 0.9 L Triglycerides Cholesterol LDL Cholesterol Direct HDL Cholesterol Lipase 424 H Free T4 TSH 3rd Generation Urine Color Urine Clarity Urine pH Ur Specific [place] Urine Protein Urine Glucose (UA) Urine Ketones Urine Blood Urine Nitrate Urine Bilirubin Urine Urobilinogen Ur Leukocyte Esterase Urine WBC (Auto) Urine RBC (Auto) Urine WBC Clumps (Auto) Ur Squamous Epith Cells Ur Transition Epith Cell Urine Bacteria Ur Random Sodium Salicylates Acetaminophen Alcohol, Quantitative 12/09/17 12/09/17 12/09/17 18:32 19:24 21:48 WBC RBC Hgb Hct MCV MCH MCHC RDW Plt Count MPV Neut % (Auto) Lymph % (Auto) [place] % (Auto) Eos % (Auto) Baso % (Auto) Neut # (Auto) Lymph # (Auto) [place] # (Auto) Eos # (Auto) Baso # (Auto) Neutrophils % (Manual) Lymphocytes % (Manual) Monocytes % (Manual) Eosinophils % (Manual) Platelet Estimate Large Platelets Hypochromasia (manual) Poikilocytosis (manual Anisocytosis (manual) Microcytosis (manual) Target Cells PT INR APTT Sodium Potassium Chloride Carbon Dioxide Anion Gap BUN Creatinine Est GFR ( Amer) Est GFR (Non-Af Amer) POC Glucose (mg/dL) 359 H Random Glucose Hemoglobin A1c Calcium Phosphorus Magnesium Iron TIBC % Saturation Transferrin Ferritin Total Bilirubin Direct Bilirubin GGT AST ALT Alkaline Phosphatase Total Protein Albumin Globulin Albumin/Globulin Ratio Triglycerides Cholesterol LDL Cholesterol Direct HDL Cholesterol Lipase Free T4 TSH 3rd Generation Urine Color Yellow Urine Clarity Hazy Urine pH 5.0 Ur Specific [place] 1.011 Urine Protein 2+ H Urine Glucose (UA) Normal Urine Ketones Negative Urine Blood 3+ H Urine Nitrate Negative Urine Bilirubin Negative Urine Urobilinogen Normal Ur Leukocyte Esterase 3+ H Urine WBC (Auto) 240 H Urine RBC (Auto) 11 H Urine WBC Clumps (Auto) Mod H Ur Squamous Epith Cells 40 H Ur Transition Epith Cell 1 Urine Bacteria Mod H Ur Random Sodium 37 Salicylates Acetaminophen Alcohol, Quantitative 12/10/17 12/10/17 12/10/17 06:31 11:15 11:15 WBC 11.4 H RBC 3.51 L Hgb 9.6 L Hct 30.9 L MCV 88.0 MCH 27.3 MCHC 31.0 L RDW 17.2 H Plt Count 294 MPV 10.1 Neut % (Auto) 84.4 H Lymph % (Auto) 10.7 L [place] % (Auto) 4.1 Eos % (Auto) 0.1 Baso % (Auto) 0.7 Neut # (Auto) 9.6 H Lymph # (Auto) 1.2 [place] # (Auto) 0.5 Eos # (Auto) 0.0 Baso # (Auto) 0.1 Neutrophils % (Manual) Lymphocytes % (Manual) Monocytes % (Manual) Eosinophils % (Manual) Platelet Estimate Large Platelets Hypochromasia (manual) Poikilocytosis (manual Anisocytosis (manual) Microcytosis (manual) Target Cells PT 13.9 H INR 1.3 APTT Sodium Potassium Chloride Carbon Dioxide Anion Gap BUN Creatinine Est GFR ( Amer) Est GFR (Non-Af Amer) POC Glucose (mg/dL) 310 H Random Glucose Hemoglobin A1c Calcium Phosphorus Magnesium Iron TIBC % Saturation Transferrin Ferritin Total Bilirubin Direct Bilirubin GGT AST ALT Alkaline Phosphatase Total Protein Albumin Globulin Albumin/Globulin Ratio Triglycerides Cholesterol LDL Cholesterol Direct HDL Cholesterol Lipase Free T4 TSH 3rd Generation Urine Color Urine Clarity Urine pH Ur Specific [place] Urine Protein Urine Glucose (UA) Urine Ketones Urine Blood Urine Nitrate Urine Bilirubin Urine Urobilinogen Ur Leukocyte Esterase Urine WBC (Auto) Urine RBC (Auto) Urine WBC Clumps (Auto) Ur Squamous Epith Cells Ur Transition Epith Cell Urine Bacteria Ur Random Sodium Salicylates Acetaminophen Alcohol, Quantitative 12/10/17 12/10/17 12/10/17 11:15 11:15 11:15 WBC RBC Hgb Hct MCV MCH MCHC RDW Plt Count MPV Neut % (Auto) Lymph % (Auto) [place] % (Auto) Eos % (Auto) Baso % (Auto) Neut # (Auto) Lymph # (Auto) [place] # (Auto) Eos # (Auto) Baso # (Auto) Neutrophils % (Manual) Lymphocytes % (Manual) Monocytes % (Manual) Eosinophils % (Manual) Platelet Estimate Large Platelets Hypochromasia (manual) Poikilocytosis (manual Anisocytosis (manual) Microcytosis (manual) Target Cells PT INR APTT Sodium 133 Potassium 3.6 Chloride 97 L Carbon Dioxide 18 L Anion Gap 22 H BUN 64 H Creatinine 4.3 H Est GFR ( Amer) 12 Est GFR (Non-Af Amer) 10 POC Glucose (mg/dL) Random Glucose 342 H Hemoglobin A1c 7.3 H D Calcium 8.8 Phosphorus 7.0 H Magnesium 2.3 Iron TIBC % Saturation Transferrin Ferritin 169.0 Total Bilirubin 10.8 H Direct Bilirubin 10.0 H GGT 1279 H AST 738 H ALT 419 H Alkaline Phosphatase 1653 H Total Protein 6.3 Albumin 3.1 L Globulin 3.2 Albumin/Globulin Ratio 1.0 Triglycerides 180 H Cholesterol 294 H LDL Cholesterol Direct 297 H HDL Cholesterol 32 Lipase Free T4 TSH 3rd Generation 1.64 Urine Color Urine Clarity Urine pH Ur Specific [place] Urine Protein Urine Glucose (UA) Urine Ketones Urine Blood Urine Nitrate Urine Bilirubin Urine Urobilinogen Ur Leukocyte Esterase Urine WBC (Auto) Urine RBC (Auto) Urine WBC Clumps (Auto) Ur Squamous Epith Cells Ur Transition Epith Cell Urine Bacteria Ur Random Sodium Salicylates < 1.0 Acetaminophen < 10.0 L Alcohol, Quantitative < 10 12/10/17 12/10/17 12/10/17 11:15 11:15 11:24 WBC RBC Hgb Hct MCV MCH MCHC RDW Plt Count MPV Neut % (Auto) Lymph % (Auto) [place] % (Auto) Eos % (Auto) Baso % (Auto) Neut # (Auto) Lymph # (Auto) [place] # (Auto) Eos # (Auto) Baso # (Auto) Neutrophils % (Manual) Lymphocytes % (Manual) Monocytes % (Manual) Eosinophils % (Manual) Platelet Estimate Large Platelets Hypochromasia (manual) Poikilocytosis (manual Anisocytosis (manual) Microcytosis (manual) Target Cells PT INR APTT Sodium Potassium Chloride Carbon Dioxide Anion Gap BUN Creatinine Est GFR ( Amer) Est GFR (Non-Af Amer) POC Glucose (mg/dL) 351 H Random Glucose Hemoglobin A1c Calcium Phosphorus Magnesium Iron 35 L TIBC 261 % Saturation 13 L Transferrin 252.31 Ferritin Total Bilirubin Direct Bilirubin GGT AST ALT Alkaline Phosphatase Total Protein Albumin Globulin Albumin/Globulin Ratio Triglycerides Cholesterol LDL Cholesterol Direct HDL Cholesterol Lipase Free T4 1.92 TSH 3rd Generation Urine Color Urine Clarity Urine pH Ur Specific [place] Urine Protein Urine Glucose (UA) Urine Ketones Urine Blood Urine Nitrate Urine Bilirubin Urine Urobilinogen Ur Leukocyte Esterase Urine WBC (Auto) Urine RBC (Auto) Urine WBC Clumps (Auto) Ur Squamous Epith Cells Ur Transition Epith Cell Urine Bacteria Ur Random Sodium Salicylates Acetaminophen Alcohol, Quantitative Attending/Attestation - Attestation I have personally seen and examined this patient.: Yes I have fully participated in the care of the patient.: Yes I have reviewed all pertinent clinical information: Yes Notes (Text): 12/10/17 15:10 I have seen and examined patient with GI fellow. Agree with above documentation with the following additions. In brief, this is an 87 year old female with history of DM, CVA, HTN, hyperlipidemia, who presents to hospital with complaint of progressive fatigue and jaundice. As per patient's daughter at bedside, she reports progressive lethargy, vague abdominal pain and jaundice over the past 10 days. She was recently admitted to hospital one month prior for evaluation of rectal bleeding which resolved on its own, was supposed to have further outpatient evaluation but became symptomatic and appointment was cancelled. She also notes loss of appetite but denies nausea, vomiting, fever/chills, weight loss, change in bowel habits, or new medication use. DM / HTN CVA Hyperlipidemia Transaminitis, painless jaundice UTI Acute renal insufficiency - Liquid diet as tolerated - Continue with antibiotic therapy as per medical team - Fractionate bilirubin, continue to monitor LFTs - Would ideally favor pancreatic protocol CT to exclude for underlying pancreatic neoplasm but unable to give contrast due to acute renal insufficiency. Will therefore obtain MRCP for further evaluation. - Obtain autoimmune panel - Suggest IVF hydration therapy with continued monitoring of renal function - Will continue to monitor patient clinical course
--- NOTE | 2017-12-10 09:19 | US ---
Renal ultrasound HISTORY: Elevated BUN and creatinine. COMPARISON: None available. TECHNIQUE: Real-time sonography was performed through the kidneys. FINDINGS: Right kidney: 9.9 x 4.9 x 4.9 centimeters. Increased echogenicity of the renal parenchymal cortex suggestive for medical renal disease. No calculi or hydronephrosis. Left kidney: 9.9 x 4.7 x 4.3 centimeters. Increased echogenicity of the renal parenchymal cortex suggestive for medical renal disease. No calculi or hydronephrosis. Visualized aorta is preserved. Visualized urinary bladder is preserved. IMPRESSION: Increased echogenicity of the bilateral renal parenchymal cortices suggestive for medical renal disease. Clinical correlation.
[2017-12-10] MEDS: (Novolog) Insulin Aspart, Recombinant 100 u/ml 10 ml vial SC SCH ×5 (09:25→22:05)
[2017-12-10] MEDS ORDERED: Enoxaparin 40 mg Syringe SC SCH (10:00)
[2017-12-10] MEDS ORDERED: INSULIN ASPART SQ SCH (10:00)
[2017-12-10] MEDS: Metoprolol Succinate 50 mg XL Tab PO SCH (10:47)
[2017-12-10] MEDS: Potassium Chloride 10 mEq ER Tab PO SCH (10:47)
[2017-12-10] MEDS: Pantoprazole 40 mg EC Tab PO SCH (10:47)
[2017-12-10 11:30] LABS: INR 1.3; PROTHROMBIN TIME 13.9 SECONDS (9.7-12.2)
[2017-12-10 11:35] LABS: BASO # 0.1 K/uL (0.0-0.2); BASO % 0.7 % (0.0-2.0); EOS % 0.1 % (0.0-4.0); HEMOGLOBIN 9.6 g/dL (11.0-16.0); LYMPH # 1.2 K/uL (1.0-4.3); LYMPH % 10.7 % (20.0-40.0); MEAN CORPUSCULAR HEMOGLOBIN 27.3 pg (27.0-31.0); MEAN PLATELET VOLUME 10.1 fL (7.2-11.7); MONO # 0.5 K/uL (0.0-0.8); MONO % 4.1 % (0.0-10.0); NEUT # 9.6 K/uL (1.8-7.0); NEUT % 84.4 % (50.0-75.0); NRBC % 0.1 % (0.0-2.0); RBC 3.51 Mil/uL (3.80-5.20); RED CELL DISTRIBUTION WIDTH 17.2 % (11.5-14.5); WHITE BLOOD COUNT 11.4 K/uL (4.8-10.8)
[2017-12-10 11:38] LABS: ALBUMIN 3.1 g/dL (3.5-5.0); ALT/SGPT 419 U/L (9-52); AST/SGOT 738 U/L (14-36); BLOOD UREA NITROGEN 64 mg/dL (7-17); CALCIUM 8.8 mg/dl (8.6-10.4); GAMMA GLUTAMYL TRANSPEPTIDASE 1279 U/L (8-78); GFR NON-AFRICAN AMERICAN 10; HDL CHOLESTEROL 32 mg/dL (30-70)
[2017-12-10 11:42] LABS: IRON 35 ug/dL (37-170)
[2017-12-10 11:43] LABS: ACETAMINOPHEN < 10.0 ug/mL (10.0-30.0); SALICYLATE < 1.0 mg/dL 1
[2017-12-10 11:46] LABS: TRANSFERRIN 252.31 mg/dL (206-381)
[2017-12-10 11:49] LABS: LDL CHOLESTEROL 297 mg/dL (0-129)
[2017-12-10 11:52] LABS: % IRON SATURATION 13 (20-55); TOTAL IRON BINDING CAPACITY 261 ug/dL (250-450)
[2017-12-10 11:55] LABS: FREE T4 1.92 ng/dL (0.78-2.19)
[2017-12-10] MEDS: Enoxaparin 30 mg Syringe SC SCH (14:03)
--- NOTE | 2017-12-10 17:22 | MRI ---
Date of service: 12/10/2017 PROCEDURE: Magnetic Resonance Cholangiopancreatography HISTORY: COMPARISON: Abdomen pelvis CT without contrast 10/27/2017. Limited abdomen ultrasound 12/09/2017. TECHNIQUE: Multiplanar, multisequence MR images of the abdomen were obtained, including heavily T2 weighted MRCP images of the biliary system. Rotating maximum intensity projection images of the biliary system were generated. FINDINGS: MRCP: Examination is markedly compromised by inability of the patient to breath hold throughout any sequences. Reformatted MRCP sequences are nondiagnostic. Source images reveal normal caliber common bile duct with the gallbladder mild to mildly distended and a mild amount of pericholecystic fluid seen surrounding it. There is borderline mural thickening and cholecystitis of acute or subacute timeframe is questioned. Although cholelithiasis was identified in the gallbladder on prior noncontrast abdomen pelvis CT 10/27/2017, and is suggested in prior limited abdomen ultrasound 12/09/2017, testing gallstones are not appreciated in the current MR examination. Nevertheless, prominent intrahepatic biliary dilatation is appreciate, particularly at the left lobe and [id number] otherwise. Consider potential obstruction at the common hepatic duct. Pancreatic duct does not appear significantly dilated. Stable benign left adrenal nodule with right adrenal gland unremarkable. No obstructive uropathy bilateral kidneys with probable tiny peripheral cysts seen at the midpole left kidney and upper midpole right kidney. Unremarkable spleen. OTHER FINDINGS: None. IMPRESSION: Exam compromised by extensive motion artifact throughout all sequences. Normal caliber CBD and pancreatic ducts. Intrahepatic biliary dilatation is appreciated predominate at the left lobe which is far greater than the remaining intrahepatic ducts. Moderate pericholecystic fluid may indicate cholecystitis. Calculi are not clearly identified. Consider follow-up contrast CT if there is a contraindication. Nuclear hepatobiliary scan may also be considered.
--- NOTE | 2017-12-10 17:33 | CP.PCM.PN ---
Subjective - Date & Time of Evaluation Date of Evaluation: 12/10/17 Time of Evaluation: 09:45 - Subjective Subjective: clinically same Objective - Vital Signs/Intake and Output Vital Signs (last 24 hours): Temp Pulse Resp BP Pulse Ox 97.3 F L 60 20 121/51 L 100 12/10/17 16:00 12/10/17 16:00 12/10/17 16:00 12/10/17 16:00 12/10/17 16:00 Intake and Output: 12/10/17 12/10/17 06:59 18:59 Intake Total 160 Balance 160 - Medications Medications: Current Medications Enoxaparin Sodium (Lovenox) 30 mg SC DAILY [facility] Last Admin: 12/10/17 14:03 Dose: Not Given Furosemide (Lasix) 40 mg PO DAILY [facility] Glimepiride (Amaryl) 4 mg PO BID [facility] Last Admin: 12/10/17 17:18 Dose: 4 mg Ceftriaxone Sodium 1 gm/ (Sodium Chloride) 100 mls @ 100 mls/hr IVPB DAILY [facility]; Protocol Insulin Aspart (Novolog) 0 unit SC ACHS [facility]; Protocol Last Admin: 12/10/17 17:18 Dose: 6 u Insulin Aspart (Novolog) 15 unit SC BID [facility] Last Admin: 12/10/17 17:21 Dose: Not Given Losartan Potassium (Cozaar) 100 mg PO DAILY [facility] Metoprolol Succinate (Toprol Xl) 50 mg PO DAILY [facility] Ondansetron HCl (Zofran Inj) 4 mg IVP Q4H PRN PRN Reason: Nausea/Vomiting Pantoprazole Sodium (Protonix Ec Tab) 40 mg PO DAILY [facility] Potassium Chloride (Klor-Con 10) 10 meq PO DAILY [facility] Sitagliptin Phosphate (Januvia) 25 mg PO DAILY [facility] - Labs Labs: 12/10/17 11:15 12/10/17 11:15 PT 13.9 SECONDS (9.7-12.2) H 12/10/17 11:15 INR 1.3 12/10/17 11:15 APTT 34 SECONDS (21-34) 12/09/17 16:21 - Constitutional Appears: Well - Head Exam Head Exam: ATRAUMATIC, NORMAL INSPECTION, NORMOCEPHALIC - Eye Exam Eye Exam: EOMI, Normal appearance, PERRL Pupil Exam: NORMAL ACCOMODATION, PERRL - ENT Exam ENT Exam: Mucous Membranes Moist, Normal Exam - Neck Exam Neck Exam: Full ROM, Normal Inspection. absent: Lymphadenopathy - Respiratory Exam Respiratory Exam: Decreased Breath Sounds - Cardiovascular Exam Cardiovascular Exam: REGULAR RHYTHM, +S1, +S2 - GI/Abdominal Exam GI & Abdominal Exam: Soft, Diminished Bowel Sounds - Rectal Exam Rectal Exam: Deferred
--- NOTE | 2017-12-10 18:31 | CARD ---
APPROVED REPORT Date of service: 12/09/2017 EKG Measurement Heart [id number] [id number] <Conclusion> Normal sinus rhythm Voltage criteria for left ventricular hypertrophy Inferior infarct, age undetermined Abnormal ECG
[2017-12-10] MEDS ORDERED: Sodium Chloride 0.9% 1,000 ML IV SCH (22:00)
[2017-12-10 23:06] LABS: BARBITURATES, UR NEGATIVE (NEGATIVE); BENZODIAZEPINES, UR NEGATIVE (NEGATIVE); OPIATES, UR NEGATIVE (NEGATIVE); PHENCYCLIDINE, UR NEGATIVE (NEGATIVE)
--- NOTE | 2017-12-11 08:41 | CP.PCM.PN ---
<DesCherry - Last Filed: 12/11/17 08:53> Subjective - Date & Time of Evaluation Date of Evaluation: 12/11/17 Time of Evaluation: 08:25 - Subjective Subjective: Gastroenterology Fellow/PGY6 Progress Note Patient resting comfortably. Tolerated full liquid diet. One bowel movement yesterday. A 12-point review of systems negative except for as above. Objective - Vital Signs/Intake and Output Vital Signs (last 24 hours): Temp Pulse Resp BP Pulse Ox 98.2 F 60 20 108/68 97 12/11/17 07:54 12/11/17 07:54 12/11/17 07:54 12/11/17 07:54 12/11/17 07:54 Intake and Output: 12/11/17 12/11/17 06:59 18:59 Intake Total 240 Output Total 250 Balance -10 - Medications Medications: Current Medications Enoxaparin Sodium (Lovenox) 30 mg SC DAILY [facility] Last Admin: 12/10/17 14:03 Dose: Not Given Furosemide (Lasix) 40 mg PO DAILY [facility] Last Admin: 12/10/17 10:49 Dose: 40 mg Glimepiride (Amaryl) 4 mg PO BID [facility] Last Admin: 12/10/17 17:18 Dose: 4 mg Ceftriaxone Sodium 1 gm/ (Sodium Chloride) 100 mls @ 100 mls/hr IVPB DAILY [facility]; Protocol Last Admin: 12/10/17 12:31 Dose: 100 mls/hr Sodium Chloride (Sodium Chloride 0.9%) 1,000 mls @ 40 mls/hr IV .Q24H [facility] Last Admin: 12/10/17 21:54 Dose: 40 mls/hr Insulin Aspart (Novolog) 0 unit SC ACHS [facility]; Protocol Last Admin: 12/10/17 22:05 Dose: Not Given Insulin Aspart (Novolog) 15 unit SC BID [facility] Last Admin: 12/10/17 17:21 Dose: Not Given Losartan Potassium (Cozaar) 100 mg PO DAILY [facility] Last Admin: 12/10/17 18:13 Dose: 100 mg Metoprolol Succinate (Toprol Xl) 50 mg PO DAILY [facility] Last Admin: 12/10/17 10:47 Dose: 50 mg Morphine Sulfate (Morphine) 2 mg IVP Q6 PRN PRN Reason: Pain, moderate (4-7) Last Admin: 12/11/17 00:31 Dose: 2 mg Ondansetron HCl (Zofran Inj) 4 mg IVP Q4H PRN PRN Reason: Nausea/Vomiting Pantoprazole Sodium (Protonix Ec Tab) 40 mg PO DAILY [facility] Last Admin: 12/10/17 10:47 Dose: 40 mg Potassium Chloride (Klor-Con 10) 10 meq PO DAILY [facility] Last Admin: 12/10/17 10:47 Dose: 10 meq Sitagliptin Phosphate (Januvia) 25 mg PO DAILY [facility] Last Admin: 12/10/17 10:47 Dose: 25 mg - Labs Labs: 12/10/17 11:15 12/10/17 11:15 PT 13.9 SECONDS (9.7-12.2) H 12/10/17 11:15 INR 1.3 12/10/17 11:15 APTT 34 SECONDS (21-34) 12/09/17 16:21 - Constitutional Appears: Non-toxic, No Acute Distress - Head Exam Head Exam: ATRAUMATIC, NORMOCEPHALIC - Eye Exam Eye Exam: EOMI, PERRL. absent: Scleral icterus Pupil Exam: PERRL. absent: Miosis, Mydriatic - ENT Exam ENT Exam: Mucous Membranes Moist, Normal Oropharynx - Neck Exam Neck Exam: Full ROM, Normal Inspection - Respiratory Exam Respiratory Exam: Clear to Ausculation Bilateral. absent: Rales, Rhonchi, Wheezes - Cardiovascular Exam Cardiovascular Exam: RRR, +S1, +S2. absent: Gallop, Rubs - GI/Abdominal Exam GI & Abdominal Exam: Soft, Tenderness, Normal Bowel Sounds. absent: Distended, Firm, Guarding, Rigid, Organomegaly, Rebound Additional comments: mid-abdominal tenderness to palpation - Extremities Exam Extremities Exam: Normal Inspection, Pedal Edema - Neurological Exam Neurological Exam: Alert, Awake - Psychiatric Exam Psychiatric exam: Normal Affect, Normal Mood - Skin Skin Exam: Dry, Intact, Normal Color, Warm Assessment and Plan - Assessment and Plan (Free Text) Assessment: 87 year old female with PMH of recent discharge 10/30/17 due to Lower GI bleed with spontaneous resolution, CVA (off Plavix since 10/27/17 2/2 GI bleed), moderate Aortic stenosis, Diabetes, HTN, and HLD presenting with yellowing of skin. Active treatment of conjugated hyperbilirubinemia with worsening transaminitis compared to 10/2017 2/2 obstructive jaundice, GURINDER, and UTI. Prior colonoscopy endorsed to be normal ten years ago. No prior EGD. Plan: -MRCP w/ abdomen w/o contrast-possible common hepatic duct obstruction, intrahepatic biliary dilatation L>R -NPO today, will discuss possible transfer for advanced endoscopy for EUS/ERCP -Lovenox DVT prophylaxis held -on ceftriaxone for UTI, pending urine culture -supportive care-IVFs, anti-emetics, pain control -avoid nephrotoxic medications -normal APAP, salicylate, drug screen, ETOH, TSH/T4 -will follow clinical course <Macho Martinez - Last Filed: 12/11/17 11:12> Objective - Vital Signs/Intake and Output Vital Signs (last 24 hours): Temp Pulse Resp BP Pulse Ox 98.2 F 60 20 108/68 97 12/11/17 07:54 12/11/17 07:54 12/11/17 07:54 12/11/17 07:54 12/11/17 07:54 Intake and Output: 12/11/17 12/11/17 06:59 18:59 Intake Total 240 Output Total 250 Balance -10 - Medications Medications: Current Medications Enoxaparin Sodium (Lovenox) 30 mg SC DAILY [facility] Last Admin: 12/11/17 10:13 Dose: Not Given Furosemide (Lasix) 40 mg PO DAILY [facility] Last Admin: 12/10/17 10:49 Dose: 40 mg Glimepiride (Amaryl) 4 mg PO BID [facility] Last Admin: 12/11/17 10:13 Dose: Not Given Ceftriaxone Sodium 1 gm/ (Sodium Chloride) 100 mls @ 100 mls/hr IVPB DAILY [facility]; Protocol Last Admin: 12/10/17 12:31 Dose: 100 mls/hr Sodium Chloride (Sodium Chloride 0.9%) 1,000 mls @ 40 mls/hr IV .Q24H [facility] Last Admin: 12/10/17 21:54 Dose: 40 mls/hr Insulin Aspart (Novolog) 0 unit SC ACHS [facility]; Protocol Last Admin: 12/11/17 08:44 Dose: Not Given Insulin Aspart (Novolog) 15 unit SC BID [facility] Last Admin: 12/11/17 10:14 Dose: Not Given Losartan Potassium (Cozaar) 100 mg PO DAILY [facility] Last Admin: 12/10/17 18:13 Dose: 100 mg Metoprolol Succinate (Toprol Xl) 50 mg PO DAILY [facility] Last Admin: 12/10/17 10:47 Dose: 50 mg Morphine Sulfate (Morphine) 2 mg IVP Q6 PRN PRN Reason: Pain, moderate (4-7) Last Admin: 12/11/17 00:31 Dose: 2 mg Ondansetron HCl (Zofran Inj) 4 mg IVP Q4H PRN PRN Reason: Nausea/Vomiting Pantoprazole Sodium (Protonix Ec Tab) 40 mg PO DAILY [facility] Last Admin: 12/10/17 10:47 Dose: 40 mg Potassium Chloride (Klor-Con 10) 10 meq PO DAILY [facility] Last Admin: 12/10/17 10:47 Dose: 10 meq Sitagliptin Phosphate (Januvia) 25 mg PO DAILY [facility] Last Admin: 12/11/17 10:13 Dose: Not Given - Labs Labs: 12/10/17 11:15 12/10/17 11:15 PT 13.9 SECONDS (9.7-12.2) H 12/10/17 11:15 INR 1.3 12/10/17 11:15 APTT 34 SECONDS (21-34) 12/09/17 16:21 Attending/Attestation - Attestation I have personally seen and examined this patient.: Yes I have fully participated in the care of the patient.: Yes I have reviewed all pertinent clinical information, including history, physical exam and plan: Yes Notes (Text): 12/11/17 11:07 I have seen and examined patient with GI fellow. No acute events overnight, she is seen resting in bed comfortably. She denies abdominal pain, nausea, vomiting, fever/chills. Tolerating PO liquids without difficulty. Review of vitals from today are normal. DM / HTN Hyperlipidemia CVA Acute renal insufficiency UTI Painless jaundice, sudden onset - transaminitis MRCP reviewed by me showing significant intrahepatic dilation, predominantly in left lobe - suggestive of hilar obstruction. mid/distal CBD appear normal. - Liquid diet as tolerated - Continue with supportive care, IVF hydration therapy - Continue to monitor creatinine - Obtain tumor markers, CA 19-9, CEA - Continue to monitor LFTs - Continue with antibiotic therapy - Awaiting autoimmune panel results - Patient ideally requires EUS for additional diagnostic purposes and will likely require IR guided percutaneous drain placement given suspected proximal hilar obstructive lesion which is not amenable to ERCP therapeutics. Will discuss with interventional GI at [facility] regarding options and will continue to monitor patient clinical course.
[2017-12-11] MEDS: (Novolog) Insulin Aspart, Recombinant 100 u/ml 10 ml vial SC SCH ×5 (08:44→17:27)
[2017-12-11] MEDS: Enoxaparin 30 mg Syringe SC SCH (10:13)
[2017-12-11] MEDS: Potassium Chloride 10 mEq ER Tab PO SCH (12:15)
[2017-12-11] MEDS: Metoprolol Succinate 50 mg XL Tab PO SCH (12:15)
[2017-12-11] MEDS: Pantoprazole 40 mg EC Tab PO SCH (12:17)
[2017-12-11 12:22] VITALS: O2SAT 98
--- NOTE | 2017-12-11 12:36 | RAD ---
Date of service: 12/11/2017 HISTORY: verify right PICC COMPARISON: Comparison chest 12/09/2017 FINDINGS: In situ right-sided PICC line with tip in the SVC. LUNGS: Low lung volumes with crowded bronchovascular markings and mild bibasilar atelectasis. There may also be some linear scarring in the left CP angle region as well. PLEURA: No significant pleural effusion identified, no pneumothorax apparent. CARDIOVASCULAR: Normal. OSSEOUS STRUCTURES: No significant abnormalities. VISUALIZED UPPER ABDOMEN: Normal. OTHER FINDINGS: None. IMPRESSION: Right-sided PICC line as described. Low lung volumes with crowded bronchovascular markings and mild bibasilar atelectasis.
[2017-12-11 13:58] LABS: BASO # 0.1 K/uL (0.0-0.2); MEAN PLATELET VOLUME 9.9 fL (7.2-11.7); MONO # 0.6 K/uL (0.0-0.8); RED CELL DISTRIBUTION WIDTH 17.3 % (11.5-14.5); WHITE BLOOD COUNT 11.1 K/uL (4.8-10.8)
[2017-12-11 14:01] LABS: INR 1.3; PROTHROMBIN TIME 14.4 SECONDS (9.7-12.2)
[2017-12-11 14:04] LABS: BASO % 1.3 % (0.0-2.0); EOS # 0.3 K/uL (0.0-0.7); EOS % 2.3 % (0.0-4.0); HEMOGLOBIN 8.9 g/dL (11.0-16.0); LYMPH % 9.3 % (20.0-40.0); MEAN CELL VOLUME 86.6 fL (81.0-99.0); MEAN CORPUSCULAR HEMOGLOBIN 27.2 pg (27.0-31.0); MEAN CORPUSCULAR HGB CONC 31.5 g/dL (33.0-37.0); MONO % 5.3 % (0.0-10.0); NEUT # 9.1 K/uL (1.8-7.0); NEUT % 81.8 % (50.0-75.0); PLATELET COUNT 280 K/uL (130-400); RBC 3.28 Mil/uL (3.80-5.20)
[2017-12-11 14:09] LABS: ALB/GLOB RATIO 0.9 (1.0-2.1); ALBUMIN 2.8 g/dL (3.5-5.0); CALCIUM 8.6 mg/dl (8.6-10.4)
[2017-12-11 14:26] LABS: ANISOCYTOSIS SLIGHT; EOSINOPHIL 1 % (0-4); HYPOCHROMIC SLIGHT; LYMPHOCYTE 8 % (20-40); MONOCYTE 2 % (0-10); NEUTROPHIL 89 % (50-75); PLATELET ESTIMATE NORMAL (NORMAL); POLYCHROMIC SLIGHT; TOTAL CELLS COUNTED 100
[2017-12-11] MEDS ORDERED: Dextrose 5%/0.45% NS 1,000 ML IV SCH (15:00)
[2017-12-11 16:02] VITALS: BP 108/68; PULSE 60; RESP 20; TEMP 98.1
--- NOTE | 2017-12-11 18:29 | CP.PCM.PN ---
Subjective - Date & Time of Evaluation Date of Evaluation: 12/11/17 Time of Evaluation: 08:30 - Subjective Subjective: clinically same Objective - Vital Signs/Intake and Output Vital Signs (last 24 hours): Temp Pulse Resp BP Pulse Ox 98.1 F 60 20 108/68 98 12/11/17 15:00 12/11/17 15:00 12/11/17 15:00 12/11/17 15:00 12/11/17 15:00 Intake and Output: 12/11/17 12/11/17 06:59 18:59 Intake Total 240 300 Output Total 250 Balance -10 300 - Medications Medications: Current Medications Enoxaparin Sodium (Lovenox) [address] [facility] Last Admin: 12/11/17 10:13 Dose: Not Given Furosemide (Lasix) [address] [facility] Last Admin: 12/11/17 12:17 Dose: 40 mg Glimepiride (Amaryl) [address] [facility] Last Admin: 12/11/17 17:27 Dose: Not Given Ceftriaxone Sodium 1 gm/ (Sodium Chloride) 100 mls @ 100 mls/hr IVPB DAILY [facility]; Protocol Last Admin: 12/11/17 13:19 Dose: 100 mls/hr Sodium Chloride (Sodium Chloride 0.9%) 1,000 mls @ 40 mls/hr IV .Q24H [facility] Last Admin: 12/10/17 21:54 Dose: 40 mls/hr Dextrose/Sodium Chloride (Dextrose 5%/0.45% Ns 1000 Ml) 1,000 mls @ 50 mls/hr IV .Q20H [facility] Last Admin: 12/11/17 16:44 Dose: 50 mls/hr Insulin Aspart (Novolog) [address] [facility]; Protocol Last Admin: 12/11/17 16:48 Dose: Not Given Insulin Aspart (Novolog) [address] [facility] Last Admin: 12/11/17 17:27 Dose: Not Given Losartan Potassium (Cozaar) [address] [facility] Last Admin: 12/11/17 12:15 Dose: 100 mg Metoprolol Succinate (Toprol Xl) [address] [facility] Last Admin: 12/11/17 12:15 Dose: 50 mg Morphine Sulfate (Morphine) 2 mg IVP Q6 PRN PRN Reason: Pain, moderate (4-7) Last Admin: 12/11/17 00:31 Dose: 2 mg Ondansetron HCl (Zofran Inj) 4 mg IVP Q4H PRN PRN Reason: Nausea/Vomiting Pantoprazole Sodium (Protonix Ec Tab) [address] [facility] Last Admin: 12/11/17 12:17 Dose: 40 mg Potassium Chloride (Klor-Con 10) [address] [facility] Last Admin: 12/11/17 12:15 Dose: 10 meq Sitagliptin Phosphate (Januvia) [address] [facility] Last Admin: 12/11/17 10:13 Dose: Not Given - Labs Labs: 12/11/17 13:48 12/11/17 13:48 PT 14.4 SECONDS (9.7-12.2) H 12/11/17 13:48 INR 1.3 12/11/17 13:48 APTT 34 SECONDS (21-34) 12/09/17 16:21
== END 2017-12-11 20:02 | disposition short-term general hospital (02) | DRG 445 ==
LOC: C.ER 15:21 → C.9E 18:04 → C.5S 21:02
PROVIDERS: ADMIT Internal Medicine Nephrology; ATTEND Internal Medicine Nephrology
PROC: 02HV33Z Insertion of Infusion Device into Superior Vena Cava, Percutaneous Approach (ICD-10-PCS; principal; 2017-12-11)
DX: K80.20 Calculus of gallbladder without cholecystitis without obstruction (principal); N17.9 Acute kidney failure, unspecified; Z86.73 Personal history of transient ischemic attack (TIA), and cerebral infarction without residual deficits; I10 Essential (primary) hypertension; E78.00 Pure hypercholesterolemia, unspecified; E11.9 Type 2 diabetes mellitus without complications; R74.0 Nonspecific elevation of levels of transaminase and lactic acid dehydrogenase [LDH]